=== PATIENT | female | born 1965 | race Caucasian/White ===

== ENCOUNTER → 2017-01-10 | Outpatient (REF) | payer MEDICARE, MEDICAID ==
[~2017-01-10] MED LIST: /ESOM40CA OR; ACET500C OR; AVALOX OR; AVELOX OR; B COCAP5 PO; DUONSOL IN; HYZAAR PO; LIPI10TA OR; MAGN500T2 PO; MULTIVIT PO; NABU750T OR; POTA75TA OR; TAMIFLU PO; TRAM50TA2 OR; TUMS500C OR; VENL75TA2 OR
== END ==
LOC: M LAB REF 13:28
PROVIDERS: ATTEND Obstetrics & Gynecology
DX: Z12.4 Encounter for screening for malignant neoplasm of cervix (principal)
CPT/HCPCS: 87624; G0123

== ENCOUNTER → 2017-01-23 | Outpatient (REF) | payer MEDICARE, MEDICAID ==
[2017-01-23 10:55] LABS: ALBUMIN 3.9 GM/DL (3.2-5.2); ALBUMIN/GLOBULIN RATIO 1.11 (1.00-1.93); ALKALINE PHOSPHATASE 86 U/L (45-117); ALT/SGPT 62 U/L (12-78); ANION GAP 6 MEQ/L (8-16); AST/SGOT 29 U/L (15-37); BILIRUBIN,TOTAL 0.7 MG/DL (0.2-1.0); BLOOD UREA NITROGEN 16 MG/DL (7-18); CALCIUM LEVEL 9.4 MG/DL (8.5-10.1); CARBON DIOXIDE LEVEL 31 MEQ/L (21-32); CHLORIDE LEVEL 104 MEQ/L (98-107); CHOLESTEROL LEVEL 218 MG/DL (<200); CREATININE FOR GFR 0.83 MG/DL (0.55-1.02); GLOMERULAR FILTRATION RATE > 60.0 (>51); GLUCOSE, FASTING 98 MG/DL (70-105); POTASSIUM SERUM 4.2 MEQ/L (3.5-5.1); SODIUM LEVEL 141 MEQ/L (136-145); TOTAL PROTEIN 7.4 GM/DL (6.4-8.2); TRIGLYCERIDES LEVEL 120 MG/DL (<150)
== END ==
LOC: M SFHCADAM 07:54
PROVIDERS: ATTEND Family Medicine
DX: I10 Essential (primary) hypertension (principal); E66.01 Morbid (severe) obesity due to excess calories; F32.2 Major depressive disorder, single episode, severe without psychotic features; F41.1 Generalized anxiety disorder; Z63.0 Problems in relationship with spouse or partner

== ENCOUNTER → 2017-01-30 | Outpatient (CLI) | payer MEDICARE, MEDICAID ==
--- NOTE | 2017-01-30 09:38 | REPMRS ---
Patient History The patient states she has not had a clinical breast exam in over a year. Patient is postmenopausal. No known family history of cancer. Digital Woman Screen Mammo: January 30, 2017 - Exam #: [id number] Bilateral CC and MLO view(s) were taken. Technologist: Bea Viveros, Technologist Prior study comparison: May 27, 2015, digital woman screen mammo performed at [facility]. March 15, 2011, digital bilateral screening mammo performed at [facility]. February 18, 2009, digital bilateral screening mammo performed at [facility]. FINDINGS: There are scattered fibroglandular densities. There has been no change in the appearance of the mammogram from the prior studies. There is a mild amount of scattered fibroglandular density which is fairly symmetric. There is no interval development of dominant mass, architectural distortion, or clustered microcalcification suggestive of malignancy. ASSESSMENT: BI-RADS/ACR category 1 mammogram. Negative. Recommendation Routine screening mammogram in 1 year (for women over age 40). This mammogram was interpreted with the aid of an FDA-approved computer-aided dectection system. Electronically Signed By: Pete Clancy MD 01/30/17 0938
== END ==
LOC: M WHC 09:03
PROVIDERS: ATTEND Obstetrics & Gynecology
DX: Z12.31 Encounter for screening mammogram for malignant neoplasm of breast (principal)

== ENCOUNTER → 2017-07-04 | Outpatient (CLI) | payer OTHER, MEDICARE, MEDICAID ==
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
== END ==
LOC: M ADAMS 15:16
PROVIDERS: ATTEND Family Medicine
DX: S13.4XXD Sprain of ligaments of cervical spine, subsequent encounter (principal); M51.36 Other intervertebral disc degeneration, lumbar region; X58.XXXD Exposure to other specified factors, subsequent encounter; Y92.9 Unspecified place or not applicable

== ENCOUNTER → 2017-09-02 | Outpatient (CLI) | payer OTHER, MEDICARE, MEDICAID ==
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
== END ==
LOC: M RAD 17:00
PROVIDERS: ATTEND Family Medicine
DX: M50.21 Other cervical disc displacement, high cervical region (principal); M50.221 Other cervical disc displacement at C4-C5 level; M50.222 Other cervical disc displacement at C5-C6 level; V89.2XXD Person injured in unspecified motor-vehicle accident, traffic, subsequent encounter

== ENCOUNTER → 2018-05-27 | Outpatient (CLI) | payer MEDICARE, MEDICAID ==
[2018-05-27 10:59] LABS: BASO % 0.4 % (0.0-1.0); EOS # 0.2 10^3/uL (0.0-0.50); EOS % 3.6 % (0.0-3.0); HEMATOCRIT 43.4 % (36.0-47.0); HEMOGLOBIN 14.8 g/dl (12.0-15.5); IMMATURE GRANULOCYTE % 0.3 % (0-3.0); LYMPH # 1.5 10^3/uL (1.5-4.5); LYMPH % 22.2 % (24.0-44.0); MEAN CORPUSCULAR HEMOGLOBIN 31.6 pg (27.0-33.0); MEAN CORPUSCULAR HGB CONC 34.1 g/dl (32.0-36.5); MEAN CORPUSCULAR VOLUME 92.7 fl (80.0-96.0); MONO # 0.4 10^3/uL (0.0-0.8); MONO % 6.1 % (0.0-5.0); NEUTROPHILS # 4.5 10^3/uL (1.8-7.7); NEUTROPHILS % 67.4 % (36.0-66.0); PLATELET COUNT, AUTOMATED 271 10^3/uL (150-450); RED BLOOD COUNT 4.68 10^6/uL (4.00-5.40); RED CELL DISTRIBUTION WIDTH 13.1 % (11.5-14.5); WHITE BLOOD COUNT 6.7 10^3/uL (4.0-10.0)
[2018-05-27 12:29] LABS: ALBUMIN 3.8 GM/DL (3.2-5.2); ALKALINE PHOSPHATASE 86 U/L (45-117); ALT/SGPT 46 U/L (12-78); ANION GAP 9 MEQ/L (8-16); AST/SGOT 27 U/L (7-37); BILIRUBIN,TOTAL 0.7 MG/DL (0.2-1.0); BLOOD UREA NITROGEN 12 MG/DL (7-18); CALCIUM LEVEL 9.2 MG/DL (8.5-10.1); CARBON DIOXIDE LEVEL 27 MEQ/L (21-32); CHLORIDE LEVEL 107 MEQ/L (98-107); CHOLESTEROL LEVEL 231 MG/DL (<200); CHOLESTEROL RISK RATIO 5.021 (<5); CREATININE FOR GFR 0.87 MG/DL (0.55-1.30); GLOMERULAR FILTRATION RATE > 60.0 (>51); GLUCOSE, FASTING 92 MG/DL (70-100); HDL CHOLESTEROL 46 MG/DL (>40); LDL CHOLESTEROL 152 MG/DL (<100); NON-HDL-C 185 MG/DL; POTASSIUM SERUM 4.3 MEQ/L (3.5-5.1); SODIUM LEVEL 143 MEQ/L (136-145); THYROID STIMULATING HORMONE 0.633 uIU/ML (0.358-3.740); TOTAL PROTEIN 7.3 GM/DL (6.4-8.2); TRIGLYCERIDES LEVEL 164 MG/DL (<150)
[2018-05-27 15:56] LABS: ALBUMIN/GLOBULIN RATIO 1.09 (1.00-1.93)
== END ==
LOC: M WUC 09:01
DX: E66.01 Morbid (severe) obesity due to excess calories (principal); Z68.35 Body mass index [BMI] 35.0-35.9, adult; E03.9 Hypothyroidism, unspecified
CPT/HCPCS: 84443

== ENCOUNTER → 2018-11-26 | Outpatient (REF) | payer MEDICARE, MEDICAID ==
[2018-11-26 13:50] LABS: CHOLESTEROL RISK RATIO 3.641 (<5)
== END ==
LOC: M SFHCADAM 09:38
PROVIDERS: ATTEND Family Medicine
DX: E78.2 Mixed hyperlipidemia (principal)

== ENCOUNTER → 2019-03-17 | Outpatient (CLI) | payer MEDICARE ==
[~2019-03-17] MED LIST changes: -/ESOM40CA OR; +NEXI1CAP3 OR
--- NOTE | 2019-03-17 16:37 | REPMRS ---
Patient History The patient states she has not had a clinical breast exam in over a year. No known family history of cancer. 3D TOMOSYNTHESIS WAS PERFORMED. The [facility] lifetime risk for breast cancer is 7.5%. Digital Woman Screen Mammo: March 17, 2019 - Exam #: [id number] Bilateral CC and MLO view(s) were taken. Technologist: Sridevi Correa Technologist Prior study comparison: January 30, 2017, digital woman screen mammo performed at [facility]. May 27, 2015, digital woman screen mammo performed at [facility]. FINDINGS: There are scattered fibroglandular densities. There has been no change in the appearance of the mammogram from the prior studies. There is a mild amount of residual fibroglandular tissue which is fairly symmetric. There is no interval development of dominant mass, architectural distortion, or clustered microcalcification suggestive of malignancy. Assessment: BI-RADS/ACR category 1 mammogram. Negative Mammogram. Recommendation Routine screening mammogram in 1 year (for women over age 40). This mammogram was interpreted with the aid of an FDA-approved computer-aided dectection system. Electronically Signed By: Joseph Alba MD 03/17/19 7132
== END ==
LOC: M WHC 11:20
PROVIDERS: ATTEND Obstetrics & Gynecology
DX: Z12.31 Encounter for screening mammogram for malignant neoplasm of breast (principal)

== ENCOUNTER → 2019-08-20 | Outpatient (CLI) | payer MEDICARE ==
--- NOTE | 2019-08-20 12:52 | REP ---
Clinical: Pain. Technique: AP, lateral, bilateral oblique views of the left ankle. Findings: Considerable anterolateral soft tissue swelling is appreciated. No obvious acute fracture or dislocation. Ankle mortise intact. Lateral view demonstrates moderate calcaneal heal spur. Impression: Anterolateral swelling. No acute fracture. Electronically Signed by Thierry French MD 08/20/2019 12:44 P
== END ==
LOC: M WUC 12:25
PROVIDERS: ATTEND Physician Assistant
DX: M77.32 Calcaneal spur, left foot (principal); R60.0 Localized edema

== ENCOUNTER → 2019-11-04 | Outpatient (REF) | payer MEDICARE ==
[2019-11-04 13:09] LABS: BASO % 0.5 % (0.0-1.0); EOS # 0.2 10^3/uL (0.0-0.5); EOS % 2.8 % (0.0-3.0); HEMATOCRIT 45.6 % (36.0-47.0); HEMOGLOBIN 15.5 g/dl (12.0-15.5); LYMPH # 1.3 10^3/uL (1.5-5.0); MEAN CORPUSCULAR HEMOGLOBIN 31.8 pg (27.0-33.0); MEAN CORPUSCULAR VOLUME 93.4 fl (80.0-96.0); MONO # 0.3 10^3/uL (0.0-0.8); MONO % 5.8 % (0.0-5.0); NEUTROPHILS # 3.9 10^3/uL (1.5-8.5); NEUTROPHILS % 68.7 % (36.0-66.0); PLATELET COUNT, AUTOMATED 256 10^3/uL (150-450); RED BLOOD COUNT 4.88 10^6/uL (4.00-5.40); WHITE BLOOD COUNT 5.7 10^3/uL (4.0-10.0)
[2019-11-04 13:31] LABS: ALT/SGPT 45 U/L (12-78); BILIRUBIN,TOTAL 0.7 MG/DL (0.2-1.0); BLOOD UREA NITROGEN 16 MG/DL (7-18); CALCIUM LEVEL 9.3 MG/DL (8.5-10.1); CARBON DIOXIDE LEVEL 27 MEQ/L (21-32); CHLORIDE LEVEL 105 MEQ/L (98-107); CHOLESTEROL LEVEL 190 MG/DL (<200); CHOLESTEROL RISK RATIO 3.877 (<5); CREATININE FOR GFR 0.98 MG/DL (0.55-1.30); GLOMERULAR FILTRATION RATE > 60.0 (>51); GLUCOSE, FASTING 111 MG/DL (70-100); HDL CHOLESTEROL 49 MG/DL (>40); LDL CHOLESTEROL 112 MG/DL (<100); NON-HDL-C 141 MG/DL; POTASSIUM SERUM 3.8 MEQ/L (3.5-5.1); SODIUM LEVEL 138 MEQ/L (136-145); THYROID STIMULATING HORMONE 0.316 uIU/ML (0.358-3.740); TOTAL PROTEIN 7.4 GM/DL (6.4-8.2); TRIGLYCERIDES LEVEL 147 MG/DL (<150)
== END ==
LOC: M SFHCADAM 08:04
PROVIDERS: ATTEND Family Medicine
DX: Z00.00 Encounter for general adult medical examination without abnormal findings (principal); E03.9 Hypothyroidism, unspecified

== ENCOUNTER → 2020-02-01 | Outpatient (REF) | payer MEDICARE ==
[2020-02-01 12:58] LABS: FREE T4 1.46 NG/DL (0.76-1.46); THYROID STIMULATING HORMONE 0.663 uIU/ML (0.358-3.740)
== END ==
LOC: M SFHCADAM 08:59
PROVIDERS: ATTEND Family Medicine
DX: E03.9 Hypothyroidism, unspecified (principal)
CPT/HCPCS: 84439; 84443; G0463

== ENCOUNTER → 2020-05-24 | Outpatient (REF) | payer MEDICARE | LOC: M SFHCWAGY 13:45 | PROVIDERS: ATTEND Obstetrics & Gynecology | DX: Z12.4 Encounter for screening for malignant neoplasm of cervix (principal); N95.8 Other specified menopausal and perimenopausal disorders | CPT/HCPCS: 87624; G0101; G0123 ==

== ENCOUNTER → 2020-06-21 | Outpatient (CLI) | payer MEDICARE ==
--- NOTE | 2020-06-28 09:32 | REP ---
BILATERAL SCREENING MAMMOGRAM WITH 3D TOMOSYNTHESIS HISTORY: No family history of breast cancer. [facility] lifetime risk of breast cancer 7.3%. COMPARISON MAMMOGRAM: 03/17/2019 as well as other prior exams. HISTORY: Bilateral mammography performed in the MLO and CC projections with 3D tomosynthesis. There is mild scattered fibroglandular tissue bilaterally. Volpara breast density is A. There is a new somewhat tubular band of density in the region of 6 oclock posteriorly in the right breast. This has a length of about 1.9 cm and a width of about 6 mm. This is not seen on prior studies. Otherwise no new mass or clustered microcalcifications are seen bilaterally. IMPRESSION: ACR 0 incomplete. New somewhat tubular density in the 6 oclock region of the right breast posteriorly. Length is approximately 19 mm and width approximately 6 mm. Recommend spot compression views and ultrasound to further evaluate. This mammogram was interpreted with the aid of an FDA approved computer aided detection system. The patient states her last clinical breast exam was May 2020. Send letter 0. MTDD
== END ==
LOC: M WHC 10:19
PROVIDERS: ATTEND Obstetrics & Gynecology
DX: R92.8 Other abnormal and inconclusive findings on diagnostic imaging of breast (principal); N63.13 Unspecified lump in the right breast, lower outer quadrant

== ENCOUNTER → 2020-07-14 | Outpatient (CLI) | payer MEDICARE ==
--- NOTE | 2020-07-14 14:24 | REP ---
INDICATION: ADDITIONAL VIEWS RT BREAST. COMPARISON: Mammogram 06/21/2020. TECHNIQUE: Spot compression views right breast performed posteriorly at 6 o'clock. Focused right breast ultrasound also performed at that location. FINDINGS: Spot compression views confirm the presence of a mildly irregular tubular oval density of the 6 o'clock position of the right breast posteriorly. It measures approximately 19 x 6 mm. It is not seen on the studies of 2018 or earlier. Real-time sonographic evaluation of right breast performed. Hypoechoic irregular tubular structure measures 15 x 6 x 9 mm. There are internal echoes. This does not appear significantly hyperemic with Doppler color evaluation. IMPRESSION: BIRADS/ACR category 4 suspicious. New oval tubular density 6 o'clock right breast seen both mammographically and sonographically. This does not represent a simple cyst or fluid-filled structure. Recommend ultrasound-guided biopsy. This mammogram was interpreted with the aid of an FDA-approved computer-aided detection system. The patient letter being requested is M4. RECOMMENDATION: Recommend ultrasound-guided biopsy with postprocedure mammogram. <Electronically signed by Joseph Alba > 07/14/20 [id number]
== END ==
LOC: M WHC 12:26
PROVIDERS: ATTEND Obstetrics & Gynecology
DX: R92.8 Other abnormal and inconclusive findings on diagnostic imaging of breast (principal)

== ENCOUNTER → 2020-09-20 | Outpatient (CLI) | payer MEDICARE ==
[2020-09-20 12:29] VITALS: BP 138/84
--- NOTE | 2020-09-20 13:21 | REP ---
INDICATION: R92.8 ABN RT BREAST MAMMO,US GUIDED BIOPST,POST BIOPSY. COMPARISON: 06/21/2020 and 07/14/2020. TECHNIQUE: ML and CC views right breast performed following ultrasound-guided biopsy of a nodule in the posterior right breast. FINDINGS: A biopsy clip is seen within the oval nodule identified on the prior mammograms indicating successful ultrasound-guided biopsy. IMPRESSION: Successful ultrasound-guided biopsy of nodule in the posterior aspect of the right breast, biopsy clip is noted within the nodule. RECOMMENDATION: Clinical follow-up. <Electronically signed by Joseph Alba > 09/20/20 0896
--- NOTE | 2020-09-20 16:06 | REP ---
INDICATION: R92.8 ABN RT BREAST MAMMO,US GUIDED BIOPSY. COMPARISON: None. TECHNIQUE: The procedure was performed under the direct supervision of Dr. Alba. The risks and benefits of the procedure were explained to the patient and informed consent was obtained. The patient has a history of a 15 by 6 x 9 mm tubular structure in the 6 o'clock position of the right breast seen on a previous ultrasound dated 07/14/2020. The right breast nodule was localized using ultrasound guidance. The skin was prepped and draped in a sterile fashion. 1% Xylocaine was used as a local anesthetic. Using ultrasound guidance a 14 gauge coaxial needle was inserted and6 core biopsy samples were obtained. A marker clip was placed at the biopsy site The patient tolerated the procedure well and there were no immediate complications. After the appropriate amount of monitored convalescence, the patient was discharged from the department. FINDINGS: None IMPRESSION: Ultrasound-guided right breast biopsy with marker clip placement. <Electronically signed by Hermann Calloway > 09/20/20 1516 <Electronically signed by Joseph Alba > 09/20/20 1606
== END ==
LOC: M WHCPRO 10:24
PROVIDERS: ATTEND Surgery
DX: C50.911 Malignant neoplasm of unspecified site of right female breast (principal)

== ENCOUNTER → 2020-09-26 | Outpatient (REF) | payer MEDICARE ==
[2020-09-26 15:16] LABS: CALCIUM LEVEL 9.7 MG/DL (8.5-10.1); CREATININE FOR GFR 1.03 MG/DL (0.55-1.30); GLOMERULAR FILTRATION RATE 58.8 (>51); POTASSIUM SERUM 3.8 MEQ/L (3.5-5.1)
== END ==
LOC: M PLALAB 12:28
PROVIDERS: ATTEND Surgery
DX: Z01.812 Encounter for preprocedural laboratory examination (principal); C50.911 Malignant neoplasm of unspecified site of right female breast; Z13.9 Encounter for screening, unspecified

== ENCOUNTER → 2020-09-26 | Outpatient (CLI) | payer MEDICARE | LOC: M PLALAB 12:07 | PROVIDERS: ATTEND Surgery | DX: Z13.9 Encounter for screening, unspecified (principal) ==

== ENCOUNTER → 2020-10-04 | Outpatient (CLI) | payer MEDICARE ==
[~2020-10-04] MED LIST changes: +CALCCAP4 PO; +LEVO112T2 PO; +LOSA100T50 PO; +META28.32 PO; +MULT-40 PO; +NABU-53 PO; +PROHANCE 279.3MG/ML 15ML VIAL As Ordered ONE; +PROHANCE 279.3MG/ML 5ML VIAL As Ordered ONE; +SIMV20TA22 PO; +TOLT4CAP3 PO; +TUMS1000 PO; +[UNRECOGNIZED DRUG - CODE] PO
--- NOTE | 2020-10-04 10:23 | REP ---
INDICATION: INVASIVE DUCTAL CA; RT BREAST. , COMPARISON: Mammograms 06/21/2020 and 07/14/2020. TECHNIQUE: Three [place]ala MRI imaging was performed with a dedicated breast coil. Axial, coronal, and sagittal T1 and T2 weighted scans were obtained with and without fat saturation in the usual fashion. The study includes dynamically acquired post gadolinium-enhanced imaging with image subtraction. Maximum intensity projection and multi planar reformation imaging is included as well. This study is interpreted with the aid of [employer], an FDA approved computer aided detection (CAD) software program, on a dedicated breast MRI workstation. The gadolinium enhancement dose is 10 mL of intravenous ProHance. FINDINGS: There is mild diffuse fibroglandular tissue present. Multiple tiny subcentimeter cystic structures are seen bilaterally. No evidence of axillary adenopathy. There is very mild background parenchymal enhancement bilaterally. Oval enhancing nodule which was recently biopsied is identified in the posterior inferior right breast slightly laterally, biopsy proven to represent invasive ductal carcinoma. This demonstrates type 3 washout enhancement. It measures approximately 1.0 x 2.5 x 1.0 cm. It is approximately 11 cm from the nipple. In the left breast slightly above the plane of the nipple and slightly laterally, posteriorly 12 cm from the nipple, there is an enhancing oval nodule which measures approximately 6 x 8 x 4 mm. This demonstrates mixed type 3 washout and type 2 plateau enhancement. This appears somewhat suspicious. There is a 7 mm cyst incidentally noted in the right lobe of the liver. IMPRESSION: BI-RADS category 6, known invasive ductal carcinoma right breast. Oval enhancing nodule is identified as discussed in detail above, which was recently biopsied in the posteroinferior right breast slightly laterally. In left breast slightly above plane of nipple and slightly laterally, posteriorly 12 cm from nipple, there is an enhancing oval nodule 6 x 8 x 4 mm which appears somewhat suspicious. Recommend second-look ultrasound left breast in order to identify for biopsy. <Electronically signed by Joseph Alba > 10/04/20 7097
== END ==
LOC: M RAD 07:48
PROVIDERS: ATTEND Surgery
DX: C50.911 Malignant neoplasm of unspecified site of right female breast (principal)
CPT/HCPCS: A9576; C8908

== ENCOUNTER → 2020-10-11 | Outpatient (CLI) | payer MEDICARE ==
[~2020-10-11] MED LIST changes: -PROHANCE 279.3MG/ML 15ML VIAL As Ordered ONE; -PROHANCE 279.3MG/ML 5ML VIAL As Ordered ONE
--- NOTE | 2020-10-11 16:32 | REP ---
INDICATION: LT BREAST ABN IMAGING MRI BREAST. Patient has a biopsy-proven invasive ductal carcinoma in the right breast. Bilateral breast MRI study was performed and a 8 mm oval-shaped area of contrast enhancement was observed in the 12 o'clock position posterior 3rd of the left breast. Second-look ultrasound was recommended. COMPARISON: Comparison MRI study 04 October 2020. Comparison mammography June 21, 2020.. TECHNIQUE: Targeted left breast sonography is performed concentrating on the 12 o'clock position. The left breast was scanned from proximally 10 o'clock to 4 o'clock throughout the superior and lateral aspect. Scanning was performed at real-time in my presence. FINDINGS: Slightly heterogeneous fibroglandular background echotexture is seen. No suspicious sonographic abnormality was observed in the superior aspect of the left breast. Somewhat laterally at approximately 3 o'clock however, there is a lesion seen with a ill-defined hyperechoic margin and a hypoechoic center. This measures 7 x 5 x 4 mm and is 10 cm from the nipple. This is similar to the MR target in distance from the nipple, size and shape however it is at 3 o'clock where is the expected MR abnormality is at 12 o'clock. It does not seem likely that they correspond. There is no suspicious abnormality seen on MR imaging in left breast at 3 o'clock. IMPRESSION: There is an oval-shaped 7 mm lesion in the 3 o'clock position of the left breast which is not a simple cyst. Its ill-defined margins are somewhat suspicious. It probably does not correspond to the MR target. Consideration should be given to ultrasound-guided needle biopsy of the lesion at 3 o'clock with marker clip placement. This can be followed by MR guided needle biopsy of the 12 o'clock target seen on recent MR. Clip placement and post clip placement left breast mammography would be warranted as well. BI-RADS category 4 suspicious findings. <Electronically signed by Pete Clancy > 10/11/20 [id number]
== END ==
LOC: M RAD 14:53
PROVIDERS: ATTEND Surgery
DX: R92.8 Other abnormal and inconclusive findings on diagnostic imaging of breast (principal); N63.21 Unspecified lump in the left breast, upper outer quadrant

== ENCOUNTER → 2020-10-13 | Outpatient (CLI) | payer MEDICARE ==
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
== END ==
LOC: M ADAMS 12:43
PROVIDERS: ATTEND Family Medicine
DX: R42 Dizziness and giddiness (principal); Z79.899 Other long term (current) drug therapy
CPT/HCPCS: 71046; 80053; 84439; 84443; 85025; G0463

== ENCOUNTER → 2020-10-13 | Outpatient (REF) | payer MEDICARE ==
[2020-10-13 17:26] LABS: BASO % 0.4 % (0.0-1.0); EOS # 0.3 10^3/uL (0.0-0.5); EOS % 3.4 % (0.0-3.0); HEMATOCRIT 43.7 % (36.0-47.0); HEMOGLOBIN 14.6 g/dl (12.0-15.5); LYMPH # 1.5 10^3/uL (1.5-5.0); LYMPH % 19.3 % (24.0-44.0); MEAN CORPUSCULAR HEMOGLOBIN 31.1 pg (27.0-33.0); MEAN CORPUSCULAR HGB CONC 33.4 g/dl (32.0-36.5); MEAN CORPUSCULAR VOLUME 93.2 fl (80.0-96.0); MONO # 0.5 10^3/uL (0.0-0.8); MONO % 6.2 % (0.0-5.0); NEUTROPHILS # 5.5 10^3/uL (1.5-8.5); NEUTROPHILS % 70.3 % (36.0-66.0); PLATELET COUNT, AUTOMATED 277 10^3/uL (150-450); RED BLOOD COUNT 4.69 10^6/uL (4.00-5.40); WHITE BLOOD COUNT 7.9 10^3/uL (4.0-10.0)
[2020-10-13 17:43] LABS: ALBUMIN 3.9 GM/DL (3.2-5.2); ALT/SGPT 48 U/L (12-78); BILIRUBIN,TOTAL 0.4 MG/DL (0.2-1.0); BLOOD UREA NITROGEN 8 MG/DL (7-18); CALCIUM LEVEL 9.7 MG/DL (8.5-10.1); CARBON DIOXIDE LEVEL 31 MEQ/L (21-32); CHLORIDE LEVEL 104 MEQ/L (98-107); CREATININE FOR GFR 0.96 MG/DL (0.55-1.30); FREE T4 1.26 NG/DL (0.76-1.46); GLOMERULAR FILTRATION RATE > 60.0 (>51); GLUCOSE, FASTING 96 MG/DL (70-100); POTASSIUM SERUM 4.2 MEQ/L (3.5-5.1); SODIUM LEVEL 140 MEQ/L (136-145); TOTAL PROTEIN 7.6 GM/DL (6.4-8.2)
== END ==
LOC: M SFHCADAM 12:33
PROVIDERS: ATTEND Family Medicine
DX: R42 Dizziness and giddiness (principal); Z79.899 Other long term (current) drug therapy

== ENCOUNTER → 2020-10-21 | Outpatient (CLI) | payer MEDICARE ==
--- NOTE | 2020-10-21 12:27 | REP ---
INDICATION: R92.8 ABN LT BREAST US,POST US GUIDED BIOPSY. COMPARISON: Comparison is made with sonography from 11 October 2020 and ultrasound-guided upset see imaging from 21 October 2020. TECHNIQUE: Craniocaudal and true mediolateral views of the left breast were obtained post clip placement. This mammogram was interpreted with the aid of an FDA-approved computer-aided detection system. FINDINGS: There is a marker clip superficially placed in the lateral aspect of the left breast at approximately 3 o'clock position. No hematoma is seen. Some post biopsy air is seen. No other mammographic findings. Breast parenchyma is is predominantly fat replaced. . : IMPRESSION: Post biopsy images demonstrate a marker clip in the superficial left lateral breast at approximately 3 o'clock position. RECOMMENDATION: Patient is being scheduled for MR guided needle biopsy in the 12 o'clock region of the left breast.. <Electronically signed by Pete Clancy > 10/21/20 4729
== END ==
LOC: M WHC 11:06
PROVIDERS: ATTEND Surgery
DX: R92.8 Other abnormal and inconclusive findings on diagnostic imaging of breast (principal)

== ENCOUNTER → 2020-10-21 | Outpatient (CLI) | payer MEDICARE ==
[~2020-10-21] MED LIST changes: +LIDOCAINE 1% MDV 20ML VIAL As Ordered ONE
[2020-10-21 10:37] VITALS: BP 134/78
--- NOTE | 2020-10-21 17:16 | REP ---
INDICATION: LESION @ 3:00 LT BREAST, SECOND LOOK U/S W/ BX. COMPARISON: None. TECHNIQUE: The procedure was performed under the direct supervision of Dr. Clancy. A second-look ultrasound, performed on 10/11/2020, demonstrates an oval-shaped 7 mm lesion in the 3 o'clock position of the left breast. The risks and benefits of the procedure were explained to the patient and informed consent was obtained. The left breast nodule was localized using ultrasound guidance. The skin was prepped and draped in a sterile fashion. 1% Xylocaine was used as a local anesthetic. Using ultrasound guidance a 14 gauge coaxial needle was inserted and6 core biopsy samples were obtained. A marker clip (HydroMARK shape 3) was placed at the biopsy site The patient tolerated the procedure well and there were no immediate complications. After the appropriate amount of monitored convalescence, the patient was discharged from the department. FINDINGS: None IMPRESSION: Ultrasound-guided left breast biopsy with marker placement. (HydroMARK shape 3) <Electronically signed by Hermann Calloway > 10/21/20 4890 <Electronically signed by Pete Clancy > 10/21/20 [id number]
== END ==
LOC: M RAD 09:28
PROVIDERS: ATTEND Surgery
DX: N63.25 Unspecified lump in the left breast, overlapping quadrants (principal); D24.2 Benign neoplasm of left breast

== ENCOUNTER → 2020-11-10 | Outpatient (CLI) | payer MEDICARE ==
[~2020-11-10] MED LIST changes: -LIDOCAINE 1% MDV 20ML VIAL As Ordered ONE
--- NOTE | 2020-11-10 15:08 | REP ---
INDICATION: POST MRI BX UNILATERAL MAMMO FOR CLIP PLACEMENT. COMPARISON: Comparison mammography 21 October 2020. TECHNIQUE: Craniocaudal, mediolateral oblique, and mediolateral views of the left breast are obtained. This mammogram was interpreted with the aid of an FDA-approved computer-aided detection system. FINDINGS: Mild scattered fibroglandular elements are seen. A marker clip placed at the time of the recent ultrasound-guided biopsy superficially in the left breast laterally is again seen. Today's needle biopsy marker clip is located 5 cm anterior to this also superficially positioned in the upper outer quadrant. This is approximately 6 cm from the biopsy cavity from today's MR guided biopsy. A lateral medial needle path was utilized for the biopsy and the marker clip appears to have disc lodged partially, possibly with at the time of needle withdrawal. In any event today's needle biopsy marker clip is not in good position. There is a small amount of soft tissue disturbance post biopsy in the upper outer quadrant posterior 3rd. . Scratch: At IMPRESSION: Marker clip is not in good position, partially dislodged superficially away from the biopsy cavity. RECOMMENDATION: If excisional biopsy is warranted based on pathology results, the biopsy marker clip cannot be used for localization.. <Electronically signed by Pete Clancy > 11/10/20 4400
== END ==
LOC: M WHC 14:17
PROVIDERS: ATTEND Surgery
DX: R92.8 Other abnormal and inconclusive findings on diagnostic imaging of breast (principal); Z97.8 Presence of other specified devices
CPT/HCPCS: 77021; 77065; 88305; A9576

== ENCOUNTER → 2020-11-10 | Outpatient (CLI) | payer MEDICARE ==
[~2020-11-10] MED LIST changes: +AMLO1TAB24 PO; +BD P0.9I2 IV; +CEPH500C PO; +CYCL1CAP2 PO; +DOXO2INJ IV; +HEPA1INJ8 IV; +LIDO2.5C15 TOP; +LIDOCAINE 1% MDV 20ML VIAL As Ordered ONE; +ONDA8TAB10 PO; +PEG6SYR SC; +PROB250C PO; +PROC10TA4 PO; +PROHANCE 279.3MG/ML 15ML VIAL As Ordered ONE; +PROHANCE 279.3MG/ML 5ML VIAL As Ordered ONE; +ROXI1TAB2 PO; +SODIUM BICARBONATE 8.4% INJ 50MEQ 50 ML VIAL As Ordered ONE
[2020-11-10 13:45] VITALS: BP 130/74
--- NOTE | 2020-11-10 18:18 | REP ---
INDICATION: LT BREAST LESION @ 12 O' CLOCK. COMPARISON: None. TECHNIQUE: The procedure was performed by Poornima Lr [facility], under the direct supervision of Dr. Clancy. The risks and benefits of the procedure were explained to the patient and an informed consent was obtained both verbally and written. Directly prior to the start of the procedure a formal time-out was completed in the procedure room. In anticipation of doing a lateral to medial needle approach, the lateral aspect of the patient's left breast skin was prepped with antiseptic. The patient was placed prone on the MRI imaging table in the breast imaging coil and the left breast was compressed mildly. Twenty mL of intravenous gadolinium was administered. Fiducial marker localization, pre and two dynamic postcontrast T1 weighted fat saturation sequences of the left breast were acquired. The [employer] system was then deployed. The lesion was targeted on initial images, and the lateral aspect of the skin was marked at the identified triangulated skin entry site. Patient was having an extremely difficult time holding still a needed to take a break. The patient was removed from the exam table and given a chance to get a drink of water and parliamentary archivist self and was placed back on the exam table and the procedure was started again. No gadolinium needed to be readministration, as the target was seen from the previous injection. The lateral skin at the entry site was prepped again aseptically. Eight mL of buffered lidocaine was administered into the skin and the breast parenchyma along the anticipated needle path. A skin ranjith was then made and in 8 gauge mammotome suction assisted needle biopsy device was passed into the left breast tissue without significant technical difficulty. Five core breast biopsies were retrieved and were submitted in formalin to pathology. A marker clip was deployed. FINDINGS: Post biopsy imaging showed good clip placement and targeting. The patient tolerated the procedure well, with no immediate complications. The patient was then discharged to go and get their postprocedural two view mammography for marker clip placement. IMPRESSION: MRI guided left breast biopsy <Electronically signed by Poornima Lr > 11/10/20 1449 <Electronically signed by Pete Clancy > 11/10/20 [id number]
== END ==
LOC: M IRPRO 09:47
PROVIDERS: ATTEND Surgery
DX: R92.8 Other abnormal and inconclusive findings on diagnostic imaging of breast (principal)

== ENCOUNTER → 2020-11-16 | Outpatient (CLI) | payer MEDICARE ==
[~2020-11-16] MED LIST changes: -AMLO1TAB24 PO; -BD P0.9I2 IV; -CEPH500C PO; -CYCL1CAP2 PO; -DOXO2INJ IV; -HEPA1INJ8 IV; -LIDO2.5C15 TOP; -LIDOCAINE 1% MDV 20ML VIAL As Ordered ONE; -ONDA8TAB10 PO; -PEG6SYR SC; -PROB250C PO; -PROC10TA4 PO; -PROHANCE 279.3MG/ML 15ML VIAL As Ordered ONE; -PROHANCE 279.3MG/ML 5ML VIAL As Ordered ONE; -ROXI1TAB2 PO; -SODIUM BICARBONATE 8.4% INJ 50MEQ 50 ML VIAL As Ordered ONE
--- NOTE | 2020-11-16 11:58 | REP ---
INDICATION: PRE OP EVAL COMPARISON: 10/13/2020 TECHNIQUE: PA and lateral. FINDINGS: The mediastinum and cardiac silhouette are normal. The lung ruggiero demonstrate stable chronic appearing changes without acute consolidation, effusion, or pneumothorax. The skeletal structures are intact and normal. IMPRESSION: No acute cardiopulmonary process. <Electronically signed by Thierry French > 11/16/20 115
== END ==
LOC: M ADAMS 09:48
PROVIDERS: ATTEND Family Medicine
DX: Z01.818 Encounter for other preprocedural examination (principal); C50.911 Malignant neoplasm of unspecified site of right female breast

== ENCOUNTER → 2020-11-16 | Outpatient (REF) | payer MEDICARE ==
[~2020-11-16] MED LIST changes: +BD P0.9I2 IV; +CYCL1CAP2 PO; +DOXO2INJ IV; +HEPA1INJ8 IV; +ONDA8TAB10 PO; +PEG6SYR SC; +PROC10TA4 PO; +ROXI1TAB2 PO
[2020-11-16 13:40] LABS: BASO % 0.5 % (0.0-1.0); EOS # 0.2 10^3/uL (0.0-0.5); EOS % 3.1 % (0.0-3.0); HEMATOCRIT 43.9 % (36.0-47.0); HEMOGLOBIN 14.6 g/dl (12.0-15.5); LYMPH # 1.8 10^3/uL (1.5-5.0); LYMPH % 23.5 % (24.0-44.0); MEAN CORPUSCULAR HEMOGLOBIN 31.7 pg (27.0-33.0); MEAN CORPUSCULAR HGB CONC 33.3 g/dl (32.0-36.5); MEAN CORPUSCULAR VOLUME 95.2 fl (80.0-96.0); MONO # 0.6 10^3/uL (0.0-0.8); MONO % 7.8 % (2.0-8.0); NEUTROPHILS % 64.7 % (36.0-66.0); PLATELET COUNT, AUTOMATED 265 10^3/uL (150-450); RED BLOOD COUNT 4.61 10^6/uL (4.00-5.40); WHITE BLOOD COUNT 7.7 10^3/uL (4.0-10.0)
[2020-11-16 13:44] LABS: ALBUMIN 3.8 GM/DL (3.2-5.2); BILIRUBIN,TOTAL 0.6 MG/DL (0.2-1.0); CALCIUM LEVEL 9.8 MG/DL (8.5-10.1); CREATININE FOR GFR 1.02 MG/DL (0.55-1.30); GLOMERULAR FILTRATION RATE 59.5 (>51); POTASSIUM SERUM 4.1 MEQ/L (3.5-5.1); TOTAL PROTEIN 7.3 GM/DL (6.4-8.2)
== END ==
LOC: M SFHCADAM 09:46
PROVIDERS: ATTEND Family Medicine
DX: Z01.818 Encounter for other preprocedural examination (principal); C50.911 Malignant neoplasm of unspecified site of right female breast

== ENCOUNTER → 2020-11-17 | Outpatient (CLI) | payer MEDICARE ==
[~2020-11-17] MED LIST changes: -BD P0.9I2 IV; -CYCL1CAP2 PO; -DOXO2INJ IV; -HEPA1INJ8 IV; -ONDA8TAB10 PO; -PEG6SYR SC; -PROC10TA4 PO; -ROXI1TAB2 PO
== END ==
LOC: M LABSMTC 11:55
PROVIDERS: ATTEND Anesthesiology
DX: Z01.812 Encounter for preprocedural laboratory examination (principal); Z20.822 Contact with and (suspected) exposure to COVID-19

== ENCOUNTER 2020-11-22 06:26 | Day surgery (SDC) | payer MEDICARE ==
[~2020-11-22] VITALS: Ht 172.7 cm; Wt 115.6 kg
[~2020-11-22 06:26] MED LIST changes: +HEPARIN SOD (PORCINE) 5000UNITS/ML 1ML VIAL/SYRINGE SQ ONE; +LR 1,000 ML IV ONE; +ceFAZolin SOD 2 GM in IV 1 EA IV ONE
[2020-11-22] MEDS ORDERED: BUPIVACAINE HCL 0.25% 30ML VIAL As Ordered ONE (07:13)
[2020-11-22] MEDS ORDERED: LIDOCAINE 1% MDV 20ML VIAL As Ordered ONE (07:13)
[2020-11-22] MEDS ORDERED: METHYLENE BLUE 0.5% (5MG/ML) 10 ML AMP (PROVAYBLUE) As Ordered ONE (07:14)
[2020-11-22] MEDS ORDERED: KETOROLAC 60MG 2ML VIAL As Ordered ONE (07:41)
[2020-11-22] MEDS ORDERED: ONDANSETRON 4MG/2ML VIAL As Ordered ONE (07:41)
[2020-11-22] MEDS ORDERED: ACETAMINOPHEN 1000MG 100ML IV BTL (OFIRMEV) (J0131 PER 10MG) As Ordered ONE (07:41)
[2020-11-22] MEDS ORDERED: fentaNYL 100 MCG/2 ML INJECTION (J3010) As Ordered ONE (07:41)
[2020-11-22] MEDS ORDERED: dexameTHASONE 4 MG/ML 1ML VIAL (J1100 PER 1MG) As Ordered ONE (07:41)
[2020-11-22] MEDS ORDERED: MIDAZOLAM INJ 2MG/2ML VIAL (J2250 PER 1MG) As Ordered ONE (07:41)
[2020-11-22] MEDS ORDERED: propofoL 200 MG/20 ML VIAL As Ordered ONE (07:41)
[2020-11-22] MEDS ORDERED: LIDOCAINE 2% INJ 100 MG/5 ML SYRINGE As Ordered ONE (07:41)
[2020-11-22] MEDS ORDERED: LIDOCAINE 2% 100MG/5ML SDV (FOR ANES.) As Ordered ONE (07:43)
[2020-11-22] MEDS ORDERED: PHENYLEPHRINE 10MG/ML 1ML VIAL (J2370 PER 1) As Ordered ONE (10:43)
[2020-11-22] MEDS ORDERED: LACRILUBE (AKWA TEARS) OPHTH OINT 3.5 GM As Ordered ONE (10:43)
--- NOTE | 2020-11-22 11:25 | REP ---
INDICATION: INTRAOP WIRE PLACEMENT LUMPECTOMY, BIOPSY. COMPARISON: None. TECHNIQUE: Sonographic guidance. FINDINGS: Ultrasound guidance is provided to Dr. Chu who performed Catracho's wire needle localization procedure under ultrasound guidance in the OR. Right breast. IMPRESSION: Procedural imaging. <Electronically signed by Pete Clancy > 11/22/20 1123
[2020-11-22] MEDS ORDERED: HYDROmorphone HCL 2 MG/ML 1ML VIAL (J1170) As Ordered ONE (11:43)
--- NOTE | 2020-11-22 12:06 | REP ---
INDICATION: RIGHT BREAST LUMPECTOMY W/INTRAOP. COMPARISON: None. TECHNIQUE/RADIOTRACER AND DOSE: This procedure was performed by Poornima Lr [facility], under the direct supervision of Dr. Alba. Images were reviewed with Dr. Alba prior to dictation. The risks and benefits of the procedure were explained to the patient and informed consent was obtained both orally and written. Directly prior to the start of the procedure, a formal timeout was done in the exam room. Using topical anesthetic and sterile technique 1.024 mCi of filtered Technetium-99m sulfur colloid was injected subdermally in 8 fractionated periareolar injections. FINDINGS: Images obtained 1 hour after injection show a dominant focus in the right axilla. IMPRESSION: There is a dominant focus in the right axilla. <Electronically signed by Poornima Lr > 11/22/20 1129 <Electronically signed by Joseph Alba > 11/22/20 1202
[2020-11-22] MEDS ORDERED: ROXI1TAB2 PO (12:35)
[2020-11-22] MEDS ORDERED: ONDANSETRON 4MG/2ML VIAL IV PRN (13:00)
[2020-11-22] MEDS ORDERED: fentaNYL 100 MCG/2 ML INJECTION (J3010) IV PRN (13:00)
[2020-11-22] MEDS ORDERED: oxyCODONE 5MG TAB PO PRN (13:00)
[2020-11-22] MEDS ORDERED: LR 1,000 ML IV SCH (13:00)
[2020-11-22] MEDS ORDERED: HYDROMORPHONE HCL 0.5 MG/ 0.5 ML SYRINGE (J1170 PER 1) IV PRN (13:00)
[2020-11-22 15:10] VITALS: BP 165/86
--- NOTE | 2020-11-22 15:27 | REP ---
INDICATION: INTRAOP WIRE PLACEMENT. Excisional biopsy right breast. COMPARISON: Comparison mammography and MRI scanning September 20, 2020 and October 04, 2020 respectively.. TECHNIQUE: Four views. FINDINGS: Specimen radiography demonstrates a irregular soft tissue mass centrally located in the specimen. This measures 1.8 cm. There is a needle biopsy marker clip along 1 edge of this mass and the Mansfield needle wire localization device is seen along this edge of the mass. The edge of the mass is 6.8 mm from the nearest specimen margin radiographically. IMPRESSION: Specimen radiography findings as above. Irregular 1.8 cm mass along with a Mansfield localizer wire and a needle biopsy marker clip are seen within the specimen. <Electronically signed by Pete Clancy > 11/22/20 1523
--- NOTE | 2020-11-24 22:40 | ROOPDOC ---
[facility] Report Of Operation Report of Operation DATE OF PROCEDURE: 11/22/20 PREPROCEDURE DIAGNOSES: Right breast cancer POSTPROCEDURE DIAGNOSES: same PROCEDURE: RIght breast lumpectomy with intraop wire placement and right s entinel lymph node biopsy SURGEON: Dr Ayo Camarena ANESTHESIA: general ESTIMATED BLOOD LOSS: minimal COMPLICATIONS: none REMARKS: clip and the mass identified in the specimen DESCRIPTION OF PROCEDURE: INDICATIONS: Ms. Rodriguez is a 55-year-old woman who was found to have a suspicious right breast mass on screening mammogram. This was evaluated with US and sonographic correlate was found. US guided biopsy of the Right breast mass came back as IDC, ER 5%, TX Negative, HER-2 Negative, grade 3. Preop MRI of the breast was done and did not show any additional suspicious lesions or suspicious lymph nodes. She opted for breast conservative surgery with sentinel lymph node biopsy on the right. She was medically cleared for surgery by her primary care doctor. Risks and possible complications of surgical procedure including bleeding, infection and injury to surrounding structures were explained to the patient and she wished to proceed. Consent was signed. My initials were placed on the operative site. Subcutaneous injection of 5000 units of heparin was done. The injection of radioactive tracer was done in radiology department preoperatively. Lymphoscintigraphy imaging was reviewed in preop. DETAILS: Patient was taken to the operating room and placed on the operating room table. A sign in was called stating patients name, date of and the procedure to be done. Preoperative antibiotics were infused. Smooth induction of general anesthesia was done. Patients hands were extended on arm rests. Care was taken not to over extend the arms. Pillow was placed under the knees and a foam was placed under the heels. Sequential compression devices were placed and assured to function correctly. Procedure was started with right breast intraop wire localization. Appropriate time out was done and patients name, date of , and the procedure to be done were confirmed. Right breast was cleaned by me. Intraoperative ultrasound was used to confirm location of the Hydromark clip. Location of the clip was marked on the skin as well. 21 G CÜR Medias Breast Lesion Localization Needle was used to place 25 cm wire through the lesion. The end of the wire was passed a centimeter deep. The images were captured confirming adequate placement of the localizing wire. Delinquency Prevention Social Worker assisted with the wire placement. Next, patients right breast and axilla were prepped and draped in the usual fashion. Care was taken not to displace the wire. Appropriate time out was done again prior second part of the procedure. Patients name, date of , and the procedure to be done were confirmed. Procedure was started with sentinel lymph node biopsy. Neoprobe was used to locate area of maximum intensity of the signal. Local anesthetic using 1% lidocaine and 0.25 % Marcaine 50/50 mix was injected. An incision was made with scalpel number 15 at the inferior aspect of axillary hair line in the right axilla where the maximum signal was identified. The sharp and blunt dissection was continued through the subcutaneous adipose tissue. Clavipectoral fascia was opened. Neoprobe was used to guide the dissection. First sentinel lymph node was identified and excised. The ex-vivo 10 second count was [id number]. The specimen was labeled with patients name and sent to pathology. No additional lymph nodes with high radioactive signal were identified. The 10 second count of the background was 69. Adequate hemostasis was assured. Additional local anesthetic was injected into surrounding tissues. Wound was irrigated. Clavipectoral fascia was closed with 3-0 Vicryl interrupted suture. Dermal layer was closed at the end of the case with 3-0 Monocryl and skin was closed with 4-0 Monocryl. Surgical glue was applied to the incision at the end of the procedure. Next, our attention was turned toward the right breast. Local anesthetic using 1% lidocaine and 0.25 % Marcaine 50/50 mix was injected at the site of planned inferior periareolar incision. The incision was made with the scalpel. Subcutaneous skin flaps were raised and the guide wire was carefully pulled into the wound. Dissection was carries along the wire until the previously marked on the skin area of target lesion location was encountered. At this point, wider excision of the tissue surrounding the wire was done. The Hydromark clip was identified in the tissue with intraoperative hockey stick ultrasound probe. The lesion was found to be very deep in the breast, close to the muscle. The end of the wire was identified with palpation. The lumpectomy specimen was carefully removed from the breast keeping its proper orientation and moved to the back table where margins were marked with the surgical inking kit following the [facility] recommendations. Specimen was then placed on the grid and placed in [employer] Specimen Imaging System. The image revealed the lesion, the wire and the Hydromark in the specimen. Margins of the specimen appeared to be adequate in the intraop radiography and no additional margins were felt to needed. The specimen measured 9.5 x5.3 cm. The specimen was labeled with patients name and right lumpectomy and sent to pathology. Wound was thoroughly irrigated. Adequate hemostasis was assured. Additional local anesthetic was injected into surrounding tissues. Clips were placed to clint the cavity. space was approximated with 2-0 Vicryl. The dermis was closed with 3-0 Vicryl and skin was closed with 4-0 Monocryl. Surgical glue was placed over the incision. Patient emerged from the anesthesia without any problems. Fluffs were placed over the operative site and patients chest was wrapped snuggly in the REMY wrap. Sponge and instrument counts were done and were correct. Patient tolerated procedure well and was taken to recovery unit in stable condition. AYO CAMARENA DO Nov 24, 2020 22:40
== END 2020-11-22 15:31 | disposition home or self-care (01) ==
LOC: M SDC 06:26
PROVIDERS: ATTEND Surgery
DX: C50.911 Malignant neoplasm of unspecified site of right female breast (principal); I10 Essential (primary) hypertension; E03.9 Hypothyroidism, unspecified; E78.5 Hyperlipidemia, unspecified; F32.9 Major depressive disorder, single episode, unspecified; G47.33 Obstructive sleep apnea (adult) (pediatric); Z87.891 Personal history of nicotine dependence; Z80.9 Family history of malignant neoplasm, unspecified; Z13.79 Encounter for other screening for genetic and chromosomal anomalies; Z79.899 Other long term (current) drug therapy
CPT/HCPCS: 19125; 36415; 38525; 76942; 78195; 81025; 86850; 86900; 86901; 88307; A9541; J0131; J0690; J1100; J1170; J1644; J2250; J2370; J2405; J3010; Q9968

== ENCOUNTER → 2020-11-24 | Outpatient (CLI) | payer MEDICARE ==
[~2020-11-24] MED LIST changes: -HEPARIN SOD (PORCINE) 5000UNITS/ML 1ML VIAL/SYRINGE SQ ONE; -LR 1,000 ML IV ONE; +ROXI1TAB2 PO; -ceFAZolin SOD 2 GM in IV 1 EA IV ONE
--- NOTE | 2020-11-25 13:43 | ECHO ---
DATE OF PROCEDURE: 11/24/2020 Age: 55 Gender: Female Height: 68 inches Weight: 254 pounds Body surface area: 2.26 m2 PATIENT LOCATION: Outpatient. REFERRING PHYSICIAN: Geovanni Minor MD. INDICATION: Potentially cardiotoxic chemotherapy. MEASUREMENTS: 2D Measurements: RV 3.1 cm LV 4.4 cm Septum 1.2 cm Posterior wall 1.2 cm Aortic Root 3.6 cm LA 4.0 cm LVEF 75% Doppler Measurements: AV 1.21 m/s LVOT 0.95 m/s MV-E 60, A 67, E/A ratio 1 Early mitral deceleration time 164 msec E prime medial 8, A prime medial 9.8, E prime lateral 9.3 Average E/E prime ratio 6.9/PCWP 10.5 mmHg PV 0.7 m/s Pulmonary artery acceleration time 110 msec PASP 34 mmHg IVC 1.9 cm COMMENTS: Normal sinus rhythm without intraventricular conduction disturbance. Somewhat technically challenging study in light of the patients body habitus, but diagnostically useful information was still obtained. M-mode and two-dimensional echocardiography was performed with pulse, continuous wave, color flow, and tissue Doppler studies. Strain study was also performed. Borderline concentric left ventricular hypertrophy with hyperkinetic wall motion. Borderline left atrial enlargement with currently normal Doppler assessment of LV diastolic function and estimated mean left atrial pressure. Normal right heart chamber sizes and motion with Doppler sign of borderline pulmonary hypertension. Normal IVC size and collapse against an elevated central venous pressure. Normal aortic dimensions. Mild aortic valvular sclerosis without stenosis and no more than trace aortic insufficiency. Normal appearing mitral valve and leaflet excursion with no posterior systolic buckling. Trace mitral insufficiency. Normal appearing tricuspid valve with trace insufficiency. No apparent intracardiac mass or pericardial effusion. This patients left ventricular systolic function is normal. Average global longitudinal strain interestingly measured 14.4, but this was not meaningful in the setting of preserved global wall motion as described above. MTDD
== END ==
LOC: M CARPUL 10:23
PROVIDERS: ATTEND Specialist
DX: C50.919 Malignant neoplasm of unspecified site of unspecified female breast (principal); Z92.21 Personal history of antineoplastic chemotherapy; Z79.899 Other long term (current) drug therapy

== ENCOUNTER → 2020-11-25 | Outpatient (CLI) | payer MEDICARE ==
[~2020-11-25] MED LIST changes: +LIDOCAINE 1% MDV 20ML VIAL As Ordered ONE; +MIDAZOLAM INJ 2MG/2ML VIAL (J2250 PER 1MG) As Ordered ONE; +PROMETHAZINE INJ 25 MG/ML VIAL (J2550) As Ordered ONE; +ceFAZolin 1GM VIAL (J0690 PER 500MG) As Ordered ONE; +diphenhydrAMINE 50MG/ML VIAL (J1200) As Ordered ONE; +fentaNYL 100 MCG/2 ML INJECTION (J3010) As Ordered ONE
--- NOTE | 2020-11-25 08:29 | IRHP ---
[facility] IR Pre-Procedure H & P General Date of Service: Nov 25, 2020 Procedure: Same Day Surgery Interval History and Physical I have seen the patient and reviewed last H & P performed within 30 days. There is no significant interval change. History of Present Illness Chief Complaint The patient is a 55-year-old female admitted with a reason for visit of Breast Ca. PRE-PROCEDURE DIAGNOSIS: Right-sided breast cancer HEART: Normal rate. LUNGS: Normal breathing at rest. ASA Classification ASA Classification: II-Mild systemic disease, III-Severe systemic dis. Mallampati Score: II NPO: Yes Problems with prior sedation: No Obstructive Sleep Apnea: Yes Plan moderate sedation Allergies Coded Allergies: aspirin (Verified Allergy, Severe, anaphylaxis, 11/22/20) bupropion (Verified Allergy, Intermediate, heart races, 11/22/20) Home Medications Scheduled Amitriptyline HCl (Amitriptyline HCl), 150 MG PO QHS, (Reported) Calcium Carbonate (Tums Ultra), 1,000 MG PO PRN, (Reported) Calcium Carbonate/Vitamin D3 (Calcium 600 + Vit D 400 Softgl), 1 CAP PO DAILY, (Reported) Levothyroxine Sodium (Levothyroxine Sodium), 112 MCG PO DAILY, (Reported) Losartan Potassium (Losartan Potassium), 1 TAB PO DAILY, (Reported) Multivitamin (Multivitamins), 1 TAB PO DAILY, (Reported) Nabumetone (Nabumetone), 1,500 MG PO QHS, (Reported) Psyllium Husk (with Sugar) (Metamucil Powder), 1 PKT PO DAILY, (Reported) Simvastatin (Simvastatin), 20 MG PO QPM, (Reported) Tolterodine Tartrate (Tolterodine Tartrate ER), 1 CAP PO QHS, (Reported) Discontinued Medications Oxycodone HCl (Roxicodone), 5 MG PO Q6HP PRN for pain Discontinued Reason: Pt states not taking VS, I&O, 24H, Fishbone Vital Signs/I&O Vital Signs Date Time Temp Pulse Resp B/P (MAP) Pulse Ox O2 Delivery O2 Flow Rate FiO2 11/25/20 07:55 97.5 100 16 98 Room Air YONATAN LOMBARDI MD Nov 25, 2020 08:29
[2020-11-25 11:16] VITALS: BP 158/80
--- NOTE | 2020-11-30 12:22 | IRPON ---
IR Postoperative Note Date Of Procedure: Nov 25, 2020 Time Of Procedure: 16:00 IR Postoperative Note IR Ultrasound and fluoroscopy guided port placement. IR Ultrasound of the neck. IR Moderate sedation. Clinical indication: Right-sided breast cancer. Physician: Dr. Berry. Procedure: The patient was advised of the benefits, risks, and alternatives of the procedure and informed consent was obtained. A time-out was performed with verification of the patient's name, MRN, site of procedure and type of procedure to be performed. The patient was positioned in the supine position on the angiographic table. The site was prepped and draped in the usual sterile fashion. Moderate sedation was performed by the physician including the presence of an independent trained RN who assisted and monitored the patient's level of consciousness and physiologic status. Following the administration of fentanyl and Versed , the physician spent 45 minutes of continuous face to face time with the patient. Ultrasound of the neck reveals a patent and compressible left internal jugular vein which is smaller closer to the clavicle. A instructor painting radiograph reveals widened mediastinum. The neck and anterior chest wall were anesthetized with lidocaine. The left internal jugular vein was accessed using a microintroducer needle under ultrasound guidance, via a lateral approach. An 018 wire was advanced into the vein but could not be passed centrally. Repeat ultrasound of the left internal jugular vein demonstrates echogenicity within the vein and further contraction. Using ultrasound guidance, a second access site was anesthetized with lidocaine. After successful ultrasound-guided access of the left internal jugular vein, a wire was advanced under fluoroscopic guidance centrally into the inferior vena cava. Judging by the angulations on the wire, this second access site was felt to be too high in the neck, and far above the clavicle for favorable left-sided port placement. Therefore needle, wire and sheath were removed, pressure held and hemostasis achieved. The patient tolerated the procedure well and was returned to the PRU in stable condition. Estimated blood loss: <5 ml. Complications: None. Conclusion: 1. Left neck ultrasound demonstrates contracted left internal jugular vein. 2. Further contraction and partial thrombosis of left internal jugular vein status post attempted needle access. Patient will be referred for PICC line. Thank you for this referral. YONATAN BERRY MD Nov 30, 2020 12:22
== END ==
LOC: M IRPRO 07:39
PROVIDERS: ATTEND Radiology Diagnostic Radiology
DX: C50.911 Malignant neoplasm of unspecified site of right female breast (principal); Z79.899 Other long term (current) drug therapy
CPT/HCPCS: 36561; 99152; 99153; C1769; C1788; C1894; J0690; J1200; J1642; J1644; J2250; J3010

== ENCOUNTER → 2020-11-29 | Outpatient (CLI) | payer MEDICARE ==
[~2020-11-29] MED LIST changes: +BD P0.9I2 IV; +HEPA1INJ8 IV; -LIDOCAINE 1% MDV 20ML VIAL As Ordered ONE; -MIDAZOLAM INJ 2MG/2ML VIAL (J2250 PER 1MG) As Ordered ONE; -PROMETHAZINE INJ 25 MG/ML VIAL (J2550) As Ordered ONE; -ceFAZolin 1GM VIAL (J0690 PER 500MG) As Ordered ONE; -diphenhydrAMINE 50MG/ML VIAL (J1200) As Ordered ONE; -fentaNYL 100 MCG/2 ML INJECTION (J3010) As Ordered ONE
[2020-11-29 13:15] VITALS: BP 167/92
--- NOTE | 2020-11-29 15:50 | REP ---
INDICATION: BREAST CA, FAILED LT PORT. COMPARISON: None. TECHNIQUE: The procedure was performed under the direct supervision of Dr. Clancy. The risks and benefits of the procedure were explained to the patient and informed consent was obtained. The left basilic vein was localized using ultrasound guidance. The skin was prepped and draped in a sterile fashion. 2% lidocaine was used as a local anesthetic. Using ultrasound guidance the basilic vein was cannulated and a 0.018 guidewire was inserted and advanced to the SVC using fluoroscopic guidance. The needle was removed and a 4.5 Israeli dilator and peel-away sheath was inserted over the guide wire. A 4.5 Israeli single lumen catheter was cut to length of 48 cm. The dilator was removed and the catheter was inserted over the guide wire with the tip ending in the SVC. The peel-away sheath was removed and the catheter was flushed with heparinized saline as per Hospital protocol. The catheter was affixed to the skin and a sterile dressing was applied. The patient tolerated the procedure well and there were no immediate complications. 0.3 minutes of fluoro time was utilized for this procedure. FINDINGS: None IMPRESSION: PICC line insertion was site rite. The tip of the catheter is in the SVC. <Electronically signed by Hermann Calloway > 11/29/20 1546 <Electronically signed by Pete Clancy > 11/29/20 1543
== END ==
LOC: M IRPRO 10:08
PROVIDERS: ATTEND Radiology Diagnostic Radiology
DX: C50.912 Malignant neoplasm of unspecified site of left female breast (principal); T82.598A Other mechanical complication of other cardiac and vascular devices and implants, initial encounter; X58.XXXA Exposure to other specified factors, initial encounter
CPT/HCPCS: 36573; C1751

== ENCOUNTER → 2020-12-09 | Outpatient (CLI) | payer MEDICARE ==
[~2020-12-09] MED LIST changes: +ONDA8TAB10 PO; +PROC10TA4 PO
== END ==
LOC: M LABSMTC 13:07
PROVIDERS: ATTEND Anesthesiology
DX: Z01.812 Encounter for preprocedural laboratory examination (principal); Z20.822 Contact with and (suspected) exposure to COVID-19

== ENCOUNTER → 2020-12-13 | Outpatient (POV) | payer MEDICARE ==
[~2020-12-13] MED LIST changes: +CYCL1CAP2 PO; +DOXO2INJ IV; +PEG6SYR SC
--- NOTE | 2020-12-16 10:17 | IRPN ---
[facility] IR Progress Note IR Progress Note DATE: Dec 13, 2020 Follow up scheduled in error. Allergies Coded Allergies: aspirin (Verified Allergy, Severe, anaphylaxis, 11/22/20) latex (Verified Allergy, Intermediate, skin rash, 12/12/20) bupropion (Verified Adverse Reaction, Intermediate, heart races, 12/12/20) YONATAN LOMBARDI MD Dec 16, 2020 10:17
== END ==
LOC: M TMIRPOV 10:36
PROVIDERS: ATTEND Radiology Diagnostic Radiology
DX: Z53.9 Procedure and treatment not carried out, unspecified reason (principal)

== ENCOUNTER 2020-12-14 10:59 | Day surgery (SDC) | payer MEDICARE ==
[~2020-12-14] VITALS: Ht 172.7 cm; Wt 114.2 kg
[~2020-12-14 10:59] MED LIST changes: +HEPARIN SOD (PORCINE) 5000UNITS/ML 1ML VIAL/SYRINGE As Ordered ONE; +LIDOCAINE 1% SDV 30ML VIAL As Ordered ONE; +LIDOCAINE 2% 100MG/5ML SDV (FOR ANES.) As Ordered ONE; +LR 1,000 ML IV ONE; +MIDAZOLAM INJ 2MG/2ML VIAL (J2250 PER 1MG) As Ordered ONE; +ceFAZolin SOD 2 GM in IV 1 EA IV ONE; +fentaNYL 100 MCG/2 ML INJECTION (J3010) As Ordered ONE; +propofoL 200 MG/20 ML VIAL As Ordered ONE
[2020-12-14] MEDS ORDERED: PHENYLephrine 500MCG 5ML (100MCG/ML) SYRINGE As Ordered ONE (13:10)
[2020-12-14] MEDS ORDERED: propofoL 200 MG/20 ML VIAL As Ordered ONE ×2 (13:35→13:36)
[2020-12-14 15:30] VITALS: BP 127/69
--- NOTE | 2020-12-14 16:42 | REP ---
INDICATION: INFUSAPORT PLACEMENT. COMPARISON: None. TECHNIQUE: Three C-arm views chest. FINDINGS: Right central venous catheter is seen with the tip in the superior vena cava. IMPRESSION: 2 seconds fluoroscopy time utilized. <Electronically signed by Joseph Alba > 12/14/20 [id number]
--- NOTE | 2020-12-15 09:44 | RO ---
OPERATIVE NOTE DATE OF OPERATION: 12/14/2020 PREOPERATIVE DIAGNOSIS: Breast cancer with need for intravenous access for chemotherapy. POSTOPERATIVE DIAGNOSIS: Breast cancer with need for intravenous access for chemotherapy. PROCEDURE PERFORMED: Implantation of right internal jugular dual lumen power port [id number] using ultrasound and fluoroscopic guidance. The port placed was reference code [id number] and lot number [id number]. SURGEON: Luis Harris MD SAP BPC DEVELOPER: ANESTHESIA: Monitored anesthesia care with local of 1% lidocaine. INDICATIONS FOR THE PROCEDURE: The patient is a 55-year-old woman who was recently diagnosed with right breast cancer and underwent a lumpectomy with sentinel lymph node biopsy. The sentinel node was negative, but her estrogen receptors were barely positive at 5% with negative progesterone and negative HER2/marilu. She is scheduled for chemotherapy. She is now for placement of an [id number] to support her chemotherapy. OPERATIVE PROCEDURE: The patient was brought to the operating room and placed on the table in a supine position. She received sedation from anesthesia. The patient's right upper chest, shoulder and neck were prepped and draped in a sterile fashion. The ultrasound probe was draped as well. The ultrasound was used to examine the right neck and the carotid artery and internal jugular vein were both clearly identified. The patient was tilted into a Trendelenburg position to distend the internal jugular vein more fully. Local anesthesia was achieved with 1% Xylocaine and a needle was inserted under ultrasound guidance into the internal jugular vein. The guidewire was passed without difficulty. The skin was nicked at the guidewire insertion site. The peel-away sheath was inserted over the guidewire and the dual lumen catheter, which had been previously flushed with heparinized saline, was inserted through the peel-away sheath and the sheath was removed. The patient was taken out of Trendelenburg position at this point. The catheter was withdrawn to approximately 15 cm of the skin surface. At this point, fluoroscopy was performed and the tip of the catheter was identified. The catheter was pulled back to the approximately 12.5 to 13 cm clint at the skin at the insertion site. Additional local anesthesia was infiltrated in the infraclavicular fossa and a transverse incision was made and a subcutaneous pocket was created to hold the dual lumen port. The catheter was then tunneled through the subcutaneous tissues to the port site using the provided tunneler. The port had been flushed with heparinized saline in advance. The catheter was cut to the appropriate length and then connected to the port using the locking ring per instructions. The port was placed into the subcutaneous pocket. The port was accessed and both lumens were flushed with saline. Both ports would return blood readily. The port was sutured to the underlying fibrofatty tissue with 2 simple sutures of 3-0 Vicryl. The skin edges were appropriated with some buried dermal sutures of 3-0 Vicryl. The two skin incisions were then both closed with buried 5-0 Vicryl. Dermabond was applied to both incisions. Each port was then accessed and flushed with 8 to 10 ml of 100 units per ml heparin solution. The patient tolerated the procedure well without apparent complication. She was awakened and transported to advanced recovery in stable condition.
== END 2020-12-14 15:43 | disposition home or self-care (01) ==
LOC: M SDC 10:59
PROVIDERS: ATTEND Surgery
DX: C50.911 Malignant neoplasm of unspecified site of right female breast (principal); Z17.0 Estrogen receptor positive status [ER+]; Z45.2 Encounter for adjustment and management of vascular access device; Z88.8 Allergy status to other drugs, medicaments and biological substances; Z91.040 Latex allergy status; G47.30 Sleep apnea, unspecified; E03.9 Hypothyroidism, unspecified; I10 Essential (primary) hypertension; E78.5 Hyperlipidemia, unspecified; F41.9 Anxiety disorder, unspecified; F32.9 Major depressive disorder, single episode, unspecified; Z79.01 Long term (current) use of anticoagulants; Z79.899 Other long term (current) drug therapy
CPT/HCPCS: 36561; 76000; C1788; J0690; J1642; J1644; J2250; J2370; J3010

== ENCOUNTER 2020-12-17 08:50 | Inpatient (IN) | payer MEDICARE ==
[~2020-12-17] VITALS: Ht 172.7 cm; Wt 113.7 kg
[~2020-12-17 08:50] MED LIST changes: -HEPARIN SOD (PORCINE) 5000UNITS/ML 1ML VIAL/SYRINGE As Ordered ONE; -LIDOCAINE 1% SDV 30ML VIAL As Ordered ONE; -LIDOCAINE 2% 100MG/5ML SDV (FOR ANES.) As Ordered ONE; -LR 1,000 ML IV ONE; -MIDAZOLAM INJ 2MG/2ML VIAL (J2250 PER 1MG) As Ordered ONE; -ceFAZolin SOD 2 GM in IV 1 EA IV ONE; -fentaNYL 100 MCG/2 ML INJECTION (J3010) As Ordered ONE; -propofoL 200 MG/20 ML VIAL As Ordered ONE
[2020-12-17] MEDS: amLODIPine 5 MG TAB PO SCH (09:00)
[2020-12-17] MEDS ORDERED: ACETAMINOPHEN 500 MG TAB PO ONE (09:35)
[2020-12-17 10:08] LABS: HEMATOCRIT 37.7 % (36.0-47.0); MEAN CORPUSCULAR HEMOGLOBIN 32.1 pg (27.0-33.0); MEAN CORPUSCULAR HGB CONC 34.5 g/dl (32.0-36.5); MEAN CORPUSCULAR VOLUME 93.1 fl (80.0-96.0); PLATELET COUNT, AUTOMATED 129 10^3/uL (150-450); RED BLOOD COUNT 4.05 10^6/uL (4.00-5.40); WHITE BLOOD COUNT 2.5 10^3/uL (4.0-10.0)
[2020-12-17 10:45] LABS: ATYPICAL LYMPH 9 % (0-5); BASOPHILS 4 % (0-1); EOSINOPHILS 7 % (0-3); LYMPHOCYTES 24 % (16-44); METAMYELOCYTES 2 % (0-0); MONOCYTES 7 % (0-5); NEUTROPHILS 30 % (28-66)
[2020-12-17 10:48] LABS: POLYCHROMASIA 1+
[2020-12-17 10:49] LABS: PLATELET ESTIMATE DECREASED (NORMAL)
[2020-12-17] MEDS ORDERED: PIPERACILLIN/TAZOBACTAM SOD 4.5 GM in D5W MINI-BAG PLUS 50 ML IV ONE (10:50)
[2020-12-17 10:51] LABS: GIANT PLATELETS 1+
[2020-12-17 10:53] LABS: MICROCYTOSIS 1+
[2020-12-17 10:57] LABS: ERYTHROCYTE SEDIMENTATION RATE 45 mm/hr (0-30)
[2020-12-17] MEDS ORDERED: NS 3,480 ML in IV 1 EA IV ONE (11:00)
--- NOTE | 2020-12-17 11:28 | REP ---
INDICATION: R port infection. COMPARISON: Portable chest dated 12/16/2011. TECHNIQUE: Upright PA and lateral chest. FINDINGS: There is a right IJ Wchonl-M-Chch with the tip in the superior vena cava in satisfactory position. There is minor atelectasis in the right costophrenic angle. The lung ruggiero are otherwise clear. Cardiac size is normal. The larry, mediastinum, and skeletal structures are unremarkable. IMPRESSION: Minor atelectasis in the right costophrenic angle. Right IJ [id number] catheter. <Electronically signed by Joseph Olea > 12/17/20 1125
[2020-12-17] MEDS ORDERED: AMLO1TAB24 PO (11:43)
[2020-12-17 12:41] LABS: RSV AMPLIFICATION NEGATIVE (NEGATIVE)
[2020-12-17] MEDS ORDERED: CALCIUM CARBONATE 500 MG CHEW U/D PO PRN (13:50)
[2020-12-17 14:30] VITALS: BP 127/68
--- NOTE | 2020-12-17 15:09 | REP ---
INDICATION: R chest port area for r/o abscess or collection. COMPARISON: None. TECHNIQUE: Multiple ultrasonographic images of soft tissues at the site of a right chest port where there is swelling. FINDINGS: There are 2 focal fluid collections at the site of swelling. One collection measures 1.7 x 1.7 x 3.5 cm. The other collection measures 1.6 x 0.7 x 1.9 cm. These collections are nonspecific and could represent abscess, hematoma or seroma. IMPRESSION: There are 2 focal fluid collections at the site of swelling related to the chest wall port. <Electronically signed by Joseph Olea > 12/17/20 [id number]
--- NOTE | 2020-12-17 15:36 | HPEPDOC ---
[facility] Medical History & Physical Date of Admission Dec 17, 2020 Date of Service: Dec 17, 2020 Attending Physician: CINDI JAMESON MD History and Physical CHIEF COMPLAINT: Red inflammed port site. Recently placed on 12/15 HISTORY OF PRESENT ILLNESS: Very pleasant 55 yo W with recently diagnosed triple negative breast cancer diagnosed in 10/2020 s/p L lumpectomy recently started on chemotherapy and had a R IJ infusaport placed by Dr. Harris in the outpatient setting on 12/15 who now comes into the ED for progressive erythema and pain around the portsite with some local swelling without noted drainage, fever, chills, nausea, emesis, rigors or chills, chest pain, palpitations or shortness of breath. HOSPITAL COURSE: She arrived hemodynamically stable, afebrile and breathing comfortably on room air with the only complaint being the swollen red painful port site.Workup was notable for leukopenia with WBC 2.5, hgb 13, platelets 129, ESR 45, CRP 3.04, lactate 1.05, CXR without noted pathology, Na 136, K 3.5, Cr 0.7 and was given a dose of empiric zosyn after drawing BCx and medicine was consulted for admission for likely line infection unclear if CLABSI or simply soft tissue. PAST MEDICAL HISTORY: Recent diagnosis of triple negative breast CA HTN HLD childhood asthma MATTHIAS hypothyroidism depression anxiety History of optical migraines GERD varicose veins PAST SURGICAL HISTORY: Bilateral breast biopsies and L breast lumpectomy D&C Laser back surgery SOCIAL HISTORY: No smoking No alcohol use No illicit drug use FAMILY HISTORY: Father: CAD, DM, HTN, Afib, skin CA, CHF Mother: Rheumatoid Arthritis, Dementia Siblings: Traumatic brain injury, PTSD Children: Healthy ALLERGIES: Please see below. REVIEW OF SYSTEMS: 12 point ROS was performed and the only positive elements are mentioned in the HPI above. It was otherwise grossly negative HOME MEDICATIONS: Please see below. PHYSICAL EXAMINATION: VITAL SIGNS: HDS, afebrile, breathing comfortably on room air GENERAL APPEARANCE: NAD HEENT: NCAT, EOMI, PERRLA, MMM CARDIOVASCULAR: RRR, no m/r/g LUNGS: CTAB, tender R upper chest wall with erythema at port site and surrounding area streaking up to her neck ABDOMEN: soft, normoactive bowel sounds throughout, NTND EXTREMITIES: WWP, no LE edema NEUROLOGICAL: CN 2-12 intact, speech is clear, moving all extremities, nonfocal examination PSYCHIATRIC: Aox3, normal mood and affect LABORATORY DATA and IMAGING: summarized above MICROBIOLOGY: Please see below. ASSESSMENT: 55 yo W with recently diagnosed triple negative breast cancer diagnosed in 10/2020 s/p L lumpectomy recently started on chemotherapy and had a R IJ infusaport placed by Dr. Harris in the outpatient setting on 12/15 who now comes into the ED for progressive erythema and pain around the port and now admitted for at least cellulitis and line infection. R port infection and cellulitis: -pending site ultrasound to r/o presence of collection -consulted surgery, Dr. Blas -s/p zosyn in the ED, will continue zosyn -MRSA PCR swab -f/u BCx -s/p sepsis bolus in the ED HTN: -continue home losartan and amlodipine Hypothyroidism: -continue home levothyroxine HLD: -continue home simvastatin DVT ppx: heparin 5000u BID Vital Signs Vital Signs Date Time Temp Pulse Resp B/P (MAP) Pulse Ox O2 Delivery O2 Flow Rate FiO2 12/17/20 12:56 99.2 101 20 125/59 (81) 98 Room Air Laboratory Data Labs 24H Laboratory Tests 2 12/17/20 09:52: Neutrophils (%) (Auto) , Nucleated Red Blood Cells % (auto) 0.8H, Neutrophils 30, Band Neutrophils 17H, Lymphocytes (Manual) 24, Monocytes (Manual) 7H, Eosinophils (Manual) 7H, Basophils (Manual) 4H, Metamyelocytes 2H, Atypical Lymphocytes 9H, Polychromasia 1+, Microcytosis 1+, Macrocytosis 1+, Giant Platelets 1+, Platelet Estimate DECREASED, Erythrocyte Sedimentation Rate 45H, C-Reactive Protein, Quantitative 3.04H 12/17/20 09:55: POC Glucose (Misc Panel) 106H, POC Sodium (Misc Panel) 136, POC Potassium (Misc Panel) 3.5, POC Chloride (Misc Panel) 98, POC Total CO2 (Misc Panel) 28.0H, POC Blood Urea Nitrogen (Misc Panel 8, POC Ionized Calcium (Misc Panel) 4.8, POC Creatinine (Misc Panel) 0.7, POC Hematocrit (Misc Panel) 38.0 12/17/20 11:40: Coronavirus (COVID-19)(PCR) NEGATIVE, Influenza Type A (RT-PCR) NEGATIVE, Influenza Type B (RT-PCR) NEGATIVE, Respiratory Syncytial Virus (PCR) NEGATIVE 12/17/20 11:50: POC Lactate (Misc Panel) 1.05 CBC/BMP Laboratory Tests 12/17/20 09:52 Microbiology Microbiology 12/17/20 Blood Culture, Received Pending 12/17/20 Blood Culture, Received Pending Home Medications Scheduled Amitriptyline HCl (Amitriptyline HCl) 150 Mg Tablet, 150 MG PO QHS Amlodipine Besylate (Amlodipine Besylate) 5 Mg Tablet, 5 MG PO DAILY Calcium Carbonate/Vitamin D3 (Calcium 600 + Vit D 400 Softgl) 1 Each Capsule, 1 CAP PO DAILY Cyclophosphamide (Cyclophosphamide) 50 Mg Capsule, 50 MG PO ASDIRECTED PER DOCTOR'S ORDERS FOR CHEMO Doxorubicin HCl (Doxorubicin HCl) 50 Mg/25 Ml Vial, 50 MG IV ASDIRECTED PER DOCTOR'S ORDERS FOR CHEMO Levothyroxine Sodium (Levothyroxine Sodium) 112 Mcg Tablet, 112 MCG PO DAILY Losartan Potassium (Losartan Potassium) 100 Mg Tablet, 100 MG PO DAILY Multivitamin (Multivitamins) 1 Each Tablet, 1 TAB PO DAILY Nabumetone (Nabumetone) 750 Mg Tablet, 1,500 MG PO QHS Psyllium Husk (with Sugar) (Metamucil Powder) 575 Gm Powder, 2 PKT PO DAILY MIX WITH JUICE OR WATER Simvastatin (Simvastatin) 20 Mg Tablet, 20 MG PO QPM Tolterodine Tartrate (Tolterodine Tartrate ER) 4 Mg Cap.er.24h, 1 CAP PO QHS Scheduled PRN Calcium Carbonate (Tums Ultra) 400 Mg Tab.chew, 1,000 MG PO TID PRN for HEARTBURN/INDIGESTION Miscellaneous Medications Pegfilgastrim (Neulasta) 6 Mg/0.6 Ml Syringe, 6 MG SC Allergies Coded Allergies: aspirin (Verified Allergy, Severe, anaphylaxis, 11/22/20) latex (Verified Allergy, Intermediate, skin rash, 12/12/20) bupropion (Verified Adverse Reaction, Intermediate, heart races, 12/12/20) A-FIB/CHADSVASC A-FIB History Current/History of A-Fib/PAF?: No Current PO Anticoag Therapy: No Age/Risk Factor Scoring CHADSVASC: CHADSVASC Response (Comments) Value Age Risk Factor Age < 65 years old 0 Gender Risk Factor Female 1 Hx of CHF No 0 Hx of HTN Yes 1 Hx of Stroke/TIA/or VTE No 0 Hx of Diabetes No 0 Hx of Vascular Disease No 0 Total 2 Treatment Treatment ordered: NONE Reason Anticoagulant not given: Not indicated/[id number] CINDI JAMESON MD Dec 17, 2020 15:36
[2020-12-17] MEDS: PIPERACILLIN/TAZOBACTAM SOD 3.375 GM in D5W MINI-BAG PLUS 50 ML IV SCH (17:30)
[2020-12-17 20:26] VITALS: BP 125/65
[2020-12-17] MEDS: TOLTERODINE TARTRATE 2 MG LA CAP (DETROL LA) PO SCH (20:28)
[2020-12-17] MEDS: SIMVASTATIN 20 MG TAB PO SCH (20:28)
[2020-12-17] MEDS: AMITRIPTYLINE 50 MG TAB PO SCH (20:28)
[2020-12-17] MEDS: HEPARIN SOD (PORCINE) 5000UNITS/ML 1ML VIAL/SYRINGE SC SCH (20:29)
[2020-12-17] MEDS: ACETAMINOPHEN TAB 650MG DOSE (2X325MG) PO PRN (20:53)
[2020-12-17 21:10] VITALS: BP 118/63
[2020-12-18] MEDS: PIPERACILLIN/TAZOBACTAM SOD 3.375 GM in D5W MINI-BAG PLUS 50 ML IV SCH ×4 (00:32→17:52)
[2020-12-18] MEDS: LEVOTHYROXINE 112MCG TABLET (0.112MG) PO SCH (05:40)
[2020-12-18 06:00] VITALS: BP 116/72
[2020-12-18 06:55] LABS: HEMATOCRIT 34.8 % (36.0-47.0); HEMOGLOBIN 11.9 g/dl (12.0-15.5); MEAN CORPUSCULAR HEMOGLOBIN 31.5 pg (27.0-33.0); MEAN CORPUSCULAR HGB CONC 34.2 g/dl (32.0-36.5); MEAN CORPUSCULAR VOLUME 92.1 fl (80.0-96.0); PLATELET COUNT, AUTOMATED 117 10^3/uL (150-450); RED BLOOD COUNT 3.78 10^6/uL (4.00-5.40); WHITE BLOOD COUNT 4.2 10^3/uL (4.0-10.0)
[2020-12-18 07:12] LABS: BLOOD UREA NITROGEN 8 MG/DL (7-18); CALCIUM LEVEL 8.5 MG/DL (8.5-10.1); CARBON DIOXIDE LEVEL 25 MEQ/L (21-32); CHLORIDE LEVEL 107 MEQ/L (98-107); CREATININE FOR GFR 0.82 MG/DL (0.55-1.30); GLOMERULAR FILTRATION RATE > 60.0 (>51); GLUCOSE, FASTING 114 MG/DL (70-100); MAGNESIUM LEVEL 1.9 MG/DL (1.8-2.4); POTASSIUM SERUM 3.4 MEQ/L (3.5-5.1); SODIUM LEVEL 140 MEQ/L (136-145)
[2020-12-18] MEDS: CALCIUM/VITAMIN D 500 MG TAB PO SCH (08:34)
[2020-12-18] MEDS: HEPARIN SOD (PORCINE) 5000UNITS/ML 1ML VIAL/SYRINGE SC SCH ×2 (08:34→21:10)
[2020-12-18] MEDS: MULTIVITAMINS/MINERALS THERAP 1 TAB PO SCH (08:36)
[2020-12-18] MEDS: LOSARTAN 50MG TABLET PO SCH (08:36)
[2020-12-18] MEDS: amLODIPine 5 MG TAB PO SCH ×2 (08:38→08:46)
[2020-12-18] MEDS: METAMUCIL (PSYLLIUM) PACKET PO SCH (08:39)
[2020-12-18] MEDS ORDERED: POTASSIUM CHLORIDE 10 MEQ SR TABLET PO ONE (09:15)
[2020-12-18] MEDS: ACETAMINOPHEN TAB 650MG DOSE (2X325MG) PO PRN ×2 (10:17→21:10)
--- NOTE | 2020-12-18 10:56 | IPNPDOC ---
Text Note Date of Service The patient was seen on 12/18/20. NOTE SUBJECTIVE: -Tmax of 100.1 -No acute issues overnight PHYSICAL EXAMINATION: VITAL SIGNS: HDS, afebrile, breathing comfortably on room air GENERAL APPEARANCE: NAD HEENT: NCAT, EOMI, PERRLA, MMM CARDIOVASCULAR: RRR, no m/r/g LUNGS: CTAB, tender R upper chest wall with erythema at port site and surrounding area ABDOMEN: soft, normoactive bowel sounds throughout, NTND EXTREMITIES: WWP, no LE edema NEUROLOGICAL: CN 2-12 intact, speech is clear, moving all extremities, nonfocal examination PSYCHIATRIC: Aox3, normal mood and affect LABORATORY DATA: WBC 4.2 Hgb 11.9 platelets 117 Na 140 K 3.4 Cr 0.82 IMAGING: R chest wall US: FINDINGS: There are 2 focal fluid collections at the site of swelling. One collection measures 1.7 x 1.7 x 3.5 cm. The other collection measures 1.6 x 0.7 x 1.9 cm. These collections are nonspecific and could represent abscess, hematoma or seroma. IMPRESSION: There are 2 focal fluid collections at the site of swelling related to the chest wall port. MICROBIOLOGY: Please see below. ASSESSMENT: 55 yo W with recently diagnosed triple negative breast cancer diagnosed in 10/2020 s/p L lumpectomy recently started on chemotherapy and had a R IJ infusaport placed by Dr. Harris in the outpatient setting on 12/15 who is now admitted for at least cellulitis with surrounding collection unclear if seroma, hematoma or abscess and potential line infection. R port infection and cellulitis with small collections: -Ultrasound showed small collections unclear if seroma, hematoma or abscess. -consulted surgery, Dr. Blas -continue zosyn -MRSA PCR swab was negative -f/u BCx -s/p sepsis bolus in the ED HTN: -continue home losartan and amlodipine Hypothyroidism: -continue home levothyroxine HLD: -continue home simvastatin DVT ppx: heparin 5000u BID VS,Fishbone, I+O VS, Fishbone, I+O Laboratory Tests 12/17/20 09:52 12/18/20 06:04 Vital Signs Date Time Temp Pulse Resp B/P (MAP) Pulse Ox O2 Delivery O2 Flow Rate FiO2 12/18/20 08:46 108 141/79 12/18/20 06:00 98.4 19 98 Room Air I&O- Last 24 Hours up to 6 AM 12/18/20 06:00 Intake Total 1960 ml Balance 1960 ml CINDI JAMESON MD Dec 18, 2020 08:59
--- NOTE | 2020-12-18 11:17 | CR.PDOC ---
General Surgery Consultation Date of Consultation 12/18/20 History and Physical CONSULT REPORT FOR: hospitalist service REASON FOR CONSULTATION: swelling around infusaport HISTORY OF PRESENT ILLNESS: PAST MEDICAL HISTORY: 1. . PAST SURGICAL HISTORY: INCLUDES: 1. . PREVIOUS ANESTHESIA REACTIONS: ALLERGIES: Please see below. FAMILY HISTORY: . HOME MEDICATIONS: Please see below. REVIEW OF SYSTEMS: GENERAL: [Denies chills, reports weight gain, reports feeling febrile yesterday]. HEENT: [Denies blurred vision and double vision. Denies ear symptoms. Denies hoarseness]. NECK: Denies any neck pain]. CARDIOVASCULAR: [Denies chest pain and palpitations]. MUSCULOSKELETAL: [Denies arthralgias, back pain and thrombophlebitis]. SKIN: [Denies rash]. NEUROLOGIC: [Denies headache, stroke and transient ischemic attack]. PSYCHIATRIC: [Denies anxiety and depression]. ENDOCRINE: [Denies thyroid disease]. HEMATOLOGY/ONCOLOGY: [Denies bleeding or clotting disorder]. HEART: [Denies any chest pains, palpitations, paroxysmal dyspnea, orthopnea]. PULMONARY: [Denies chronic cough, dyspnea and wheezing]. GASTROINTESTINAL: [Denies rectal bleeding, family history of colon cancer, constipation, diarrhea, dysphagia, heartburn and jaundice]. GENITOURINARY: [Denies dysuria, frequency, hematuria and nocturia]. ENDOCRINE: [Denies polydipsia, polyphagia, polyuria, heat or cold intolerance]. INFECTIOUS: [Denies any recent upper respiratory tract infection, UTI, need for use of antibiotics]. NUTRITION: [Reports good appetite]. PHYSICAL EXAMINATION: VITALS SIGNS: Please see below. GENERAL APPEARANCE:[Patient seen, laying in bed, awake, alert, and oriented. Comfortable, in no acute distress]. SKIN: [Warm and moist]. HEENT: [Normocephalic, atraumatic. [place] palpebral conjunctiva, anicteric sclerae. Lips and mucosa appear moist]. NECK: [Supple, no thyromegaly. No obvious jugular venous distention]. LUNGS: [Clear to auscultation bilaterally. No wheezing appreciated]. HEART: [No chest wall abnormalities. Regular rate and rhythm with no murmurs appreciated]. ABDOMEN: Abdomen is , soft, . [No hepatosplenomegaly. No umbilical or groin herniations, nondistended. No noticeable rebound or guarding. No grimacing with palpation. No rebound tenderness. No masses appreciated]. EXTREMITIES: [Extremities have no deformities. No edema identified] ANCILLARIES: . LABORATORY DATA: Please see below. IMAGING STUDIES: . IMPRESSION AND PLAN: swelling around infusaport, looks to be more at the subcutaneous tract from the tunnelling prob more hematoma than cellulitis. Only a small amount of fluid(hematoma) seen on US. continue abx, ice pack to the chest, let it demarcate vs clean out in the or if continues to expand, worsen Vital Signs Vital Signs Date Time Temp Pulse Resp B/P (MAP) Pulse Ox O2 Delivery O2 Flow Rate FiO2 12/18/20 08:46 108 141/79 12/18/20 06:00 98.4 19 98 Room Air I&Os I&O- Last 24 Hours up to 6 AM 12/18/20 06:00 Intake Total 1960 ml Balance 1960 ml Laboratory Data Labs 24H Laboratory Tests 2 12/17/20 11:40: Coronavirus (COVID-19)(PCR) NEGATIVE, Influenza Type A (RT-PCR) NEGATIVE, Influenza Type B (RT-PCR) NEGATIVE, Respiratory Syncytial Virus (PCR) NEGATIVE 12/17/20 11:50: POC Lactate (Misc Panel) 1.05 12/17/20 16:32: Methicillin-Resist S.aureus DNA PCR NOT DETECTED 12/18/20 06:04: Nucleated Red Blood Cells % (auto) 0.7H, Anion Gap 8, Glomerular Filtration Rate > 60.0, Calcium Level 8.5, Magnesium Level 1.9 CBC/BMP Laboratory Tests 12/18/20 06:04 Microbiology Microbiology 12/17/20 Blood Culture - Preliminary, Resulted No growth after 24 hours . All specim... 12/17/20 Blood Culture - Preliminary, Resulted No growth after 24 hours . All specim... Home Medications Scheduled Amitriptyline HCl (Amitriptyline HCl) 150 Mg Tablet, 150 MG PO QHS, (Reported) Amlodipine Besylate (Amlodipine Besylate) 5 Mg Tablet, 5 MG PO DAILY, (Reported) Calcium Carbonate/Vitamin D3 (Calcium 600 + Vit D 400 Softgl) 1 Each Capsule, 1 CAP PO DAILY, (Reported) Cyclophosphamide (Cyclophosphamide) 50 Mg Capsule, 50 MG PO ASDIRECTED, (Reported) PER DOCTOR'S ORDERS FOR CHEMO Doxorubicin HCl (Doxorubicin HCl) 50 Mg/25 Ml Vial, 50 MG IV ASDIRECTED, (Repo rted) PER DOCTOR'S ORDERS FOR CHEMO Levothyroxine Sodium (Levothyroxine Sodium) 112 Mcg Tablet, 112 MCG PO DAILY, (Reported) Losartan Potassium (Losartan Potassium) 100 Mg Tablet, 100 MG PO DAILY, (Reported) Multivitamin (Multivitamins) 1 Each Tablet, 1 TAB PO DAILY, (Reported) Nabumetone (Nabumetone) 750 Mg Tablet, 1,500 MG PO QHS, (Reported) Psyllium Husk (with Sugar) (Metamucil Powder) 575 Gm Powder, 2 PKT PO DAILY, (Reported) MIX WITH JUICE OR WATER Simvastatin (Simvastatin) 20 Mg Tablet, 20 MG PO QPM, (Reported) Tolterodine Tartrate (Tolterodine Tartrate ER) 4 Mg Cap.er.24h, 1 CAP PO QHS, (Reported) Scheduled PRN Calcium Carbonate (Tums Ultra) 400 Mg Tab.chew, 1,000 MG PO TID PRN for HEARTBURN/INDIGESTION, (Reported) Miscellaneous Medications Pegfilgastrim (Neulasta) 6 Mg/0.6 Ml Syringe, 6 MG SC, (Reported) Allergies Coded Allergies: aspirin (Verified Allergy, Severe, anaphylaxis, 11/22/20) latex (Verified Allergy, Intermediate, skin rash, 12/12/20) bupropion (Verified Adverse Reaction, Intermediate, heart races, 12/12/20) EVELYN ALLISON MD Dec 18, 2020 11:17
[2020-12-18 14:17] VITALS: BP 143/78
[2020-12-18] MEDS: SIMVASTATIN 20 MG TAB PO SCH (21:10)
[2020-12-18] MEDS: TOLTERODINE TARTRATE 2 MG LA CAP (DETROL LA) PO SCH (21:10)
[2020-12-18] MEDS: AMITRIPTYLINE 50 MG TAB PO SCH (21:10)
[2020-12-18 22:00] VITALS: BP 110/64
[2020-12-19] MEDS: PIPERACILLIN/TAZOBACTAM SOD 3.375 GM in D5W MINI-BAG PLUS 50 ML IV SCH ×5 (00:29→23:46)
[2020-12-19] MEDS: LEVOTHYROXINE 112MCG TABLET (0.112MG) PO SCH (05:05)
[2020-12-19] MEDS: ACETAMINOPHEN TAB 650MG DOSE (2X325MG) PO PRN ×2 (05:05→20:01)
[2020-12-19 06:00] VITALS: BP 140/74
[2020-12-19 06:49] LABS: HEMATOCRIT 35.8 % (36.0-47.0); HEMOGLOBIN 12.1 g/dl (12.0-15.5); MEAN CORPUSCULAR HEMOGLOBIN 31.7 pg (27.0-33.0); MEAN CORPUSCULAR HGB CONC 33.8 g/dl (32.0-36.5); MEAN CORPUSCULAR VOLUME 93.7 fl (80.0-96.0); PLATELET COUNT, AUTOMATED 120 10^3/uL (150-450); RED BLOOD COUNT 3.82 10^6/uL (4.00-5.40); WHITE BLOOD COUNT 6.6 10^3/uL (4.0-10.0)
[2020-12-19 07:13] LABS: BLOOD UREA NITROGEN 8 MG/DL (7-18); CARBON DIOXIDE LEVEL 25 MEQ/L (21-32); CHLORIDE LEVEL 109 MEQ/L (98-107); CREATININE FOR GFR 0.78 MG/DL (0.55-1.30); GLOMERULAR FILTRATION RATE > 60.0 (>51); GLUCOSE, FASTING 117 MG/DL (70-100); POTASSIUM SERUM 3.6 MEQ/L (3.5-5.1); SODIUM LEVEL 142 MEQ/L (136-145)
[2020-12-19 07:14] LABS: CALCIUM LEVEL 8.6 MG/DL (8.5-10.1)
[2020-12-19] MEDS: METAMUCIL (PSYLLIUM) PACKET PO SCH (08:28)
[2020-12-19] MEDS: HEPARIN SOD (PORCINE) 5000UNITS/ML 1ML VIAL/SYRINGE SC SCH ×2 (08:28→20:02)
[2020-12-19] MEDS: MULTIVITAMINS/MINERALS THERAP 1 TAB PO SCH (08:28)
[2020-12-19] MEDS: LOSARTAN 50MG TABLET PO SCH (08:28)
[2020-12-19] MEDS: CALCIUM/VITAMIN D 500 MG TAB PO SCH (08:28)
[2020-12-19] MEDS: amLODIPine 5 MG TAB PO SCH (08:30)
--- NOTE | 2020-12-19 11:09 | IPNPDOC ---
Text Note Date of Service The patient was seen on 12/19/20. NOTE SUBJECTIVE: -No acute issues overnight PHYSICAL EXAMINATION: VITAL SIGNS: HDS, afebrile, breathing comfortably on room air GENERAL APPEARANCE: NAD HEENT: NCAT, EOMI, PERRLA, MMM CARDIOVASCULAR: RRR, no m/r/g LUNGS: CTAB, tender R upper chest wall with erythema at port site and surrounding area ABDOMEN: soft, normoactive bowel sounds throughout, NTND EXTREMITIES: WWP, no LE edema NEUROLOGICAL: CN 2-12 intact, speech is clear, moving all extremities, nonfocal examination PSYCHIATRIC: Aox3, normal mood and affect LABORATORY DATA: WBC 6.6 Hgb 12.1 K 3.6 Cr 0.78 IMAGING: R chest wall US: FINDINGS: There are 2 focal fluid collections at the site of swelling. One collection measures 1.7 x 1.7 x 3.5 cm. The other collection measures 1.6 x 0.7 x 1.9 cm. These collections are nonspecific and could represent abscess, hematoma or seroma. IMPRESSION: There are 2 focal fluid collections at the site of swelling related to the chest wall port. MICROBIOLOGY: Please see below. ASSESSMENT: 55 yo W with recently diagnosed triple negative breast cancer diagnosed in 10/2020 s/p L lumpectomy recently started on chemotherapy and had a R IJ infusaport placed by Dr. Harris in the outpatient setting on 12/15 who is now admitted for possible cellulitis with surrounding collection unclear if seroma, hematoma or abscess and potential line infection, with surgery suspecting most likely hematoma. R port infection and cellulitis with small collections: -Ultrasound showed small collections unclear if seroma, hematoma or abscess. -consulted surgery, Dr. Blas --> suspecting its a hematoma and unlikely cellulitis vs. very unlikely abscess. Agrees with continuing empiric a ntibiotics. -continue zosyn, day 3 -MRSA PCR swab was negative -f/u BCx -s/p sepsis bolus in the ED HTN: -continue home losartan and amlodipine Hypothyroidism: -continue home levothyroxine HLD: -continue home simvastatin DVT ppx: heparin 5000u BID VS,Fishbone, I+O VS, Fishbone, I+O Laboratory Tests 12/19/20 06:05 Vital Signs Date Time Temp Pulse Resp B/P (MAP) Pulse Ox O2 Delivery O2 Flow Rate FiO2 12/19/20 08:28 144/79 12/19/20 06:00 97.3 98 18 Room Air 96.0 12/18/20 22:00 95 I&O- Last 24 Hours up to 6 AM 12/19/20 06:00 Intake Total 2230 ml Balance 2230 ml CINDI JAMESON MD Dec 19, 2020 08:56
[2020-12-19 14:00] VITALS: BP 135/73
[2020-12-19] MEDS: AMITRIPTYLINE 50 MG TAB PO SCH (20:01)
[2020-12-19] MEDS: SIMVASTATIN 20 MG TAB PO SCH (20:01)
[2020-12-19] MEDS: TOLTERODINE TARTRATE 2 MG LA CAP (DETROL LA) PO SCH (20:01)
[2020-12-19 22:00] VITALS: BP 101/62
[2020-12-20] MEDS: PIPERACILLIN/TAZOBACTAM SOD 3.375 GM in D5W MINI-BAG PLUS 50 ML IV SCH ×2 (05:11→12:11)
[2020-12-20] MEDS: LEVOTHYROXINE 112MCG TABLET (0.112MG) PO SCH (05:12)
[2020-12-20 06:00] VITALS: BP 124/80
[2020-12-20 07:03] LABS: HEMATOCRIT 36.8 % (36.0-47.0); HEMOGLOBIN 12.7 g/dl (12.0-15.5); MEAN CORPUSCULAR HEMOGLOBIN 32.1 pg (27.0-33.0); MEAN CORPUSCULAR HGB CONC 34.5 g/dl (32.0-36.5); MEAN CORPUSCULAR VOLUME 92.9 fl (80.0-96.0); PLATELET COUNT, AUTOMATED 158 10^3/uL (150-450); RED BLOOD COUNT 3.96 10^6/uL (4.00-5.40); WHITE BLOOD COUNT 7.9 10^3/uL (4.0-10.0)
[2020-12-20 07:25] LABS: BLOOD UREA NITROGEN 9 MG/DL (7-18); CALCIUM LEVEL 8.9 MG/DL (8.5-10.1); CARBON DIOXIDE LEVEL 27 MEQ/L (21-32); CHLORIDE LEVEL 106 MEQ/L (98-107); CREATININE FOR GFR 0.91 MG/DL (0.55-1.30); GLOMERULAR FILTRATION RATE > 60.0 (>51); GLUCOSE, FASTING 114 MG/DL (70-100); POTASSIUM SERUM 3.7 MEQ/L (3.5-5.1); SODIUM LEVEL 139 MEQ/L (136-145)
[2020-12-20] MEDS: CALCIUM/VITAMIN D 500 MG TAB PO SCH (08:46)
[2020-12-20] MEDS: amLODIPine 5 MG TAB PO SCH (08:46)
[2020-12-20] MEDS: MULTIVITAMINS/MINERALS THERAP 1 TAB PO SCH (08:46)
[2020-12-20 08:47] VITALS: BP 144/84
[2020-12-20] MEDS: METAMUCIL (PSYLLIUM) PACKET PO SCH (08:47)
[2020-12-20] MEDS: LOSARTAN 50MG TABLET PO SCH (08:47)
[2020-12-20] MEDS: HEPARIN SOD (PORCINE) 5000UNITS/ML 1ML VIAL/SYRINGE SC SCH (08:47)
[2020-12-20 09:14] LABS: C REACTIVE PROTEIN QUANTITATIV 6.72 MG/DL (0.00-0.30)
[2020-12-20 09:58] LABS: ERYTHROCYTE SEDIMENTATION RATE 56 mm/hr (0-30)
[2020-12-20] MEDS ORDERED: CEPH500C PO (12:13)
[2020-12-20] MEDS ORDERED: PROB250C PO (12:13)
--- NOTE | 2020-12-20 16:44 | IPNPDOC ---
Text Note Date of Service The patient was seen on 12/20/20. NOTE I followed up on the patient today. She is comfortable and looks to be doing w ell. She is afebrile. She remains antibiotics. On examination. The peripheral cellulitis seems to be resolved there is a deep red erythema on the skin following the tract of the subcutaneous tunnel from the right IJ to the subcutaneous port and around the port and some skin ecchymosis below this. Area is nontender on palpation. All incisions are intact without any active drainage Impression and plan Most likely this is more a hematoma than an actual infection related to the port. I filled the erythema would continue to gradually improve. There is no fluctuance nor any other signs of infection/inflammation aside from the erythema. She can go home. She can be switched to oral antibiotics were short period. She can follow up with Dr. Harris in the office. Charli HASSAN, I+O VSCharli, I+O Laboratory Tests 12/20/20 06:51 Vital Signs Date Time Temp Pulse Resp B/P (MAP) Pulse Ox O2 Delivery O2 Flow Rate FiO2 12/20/20 08:47 144/84 12/20/20 06:00 98.3 102 18 93 Room Air 12/19/20 06:00 96.0 I&O- Last 24 Hours up to 6 AM 12/20/20 05:59 Intake Total 3200 ml Output Total 0 ml Balance 3200 ml EVELYN ALLISON MD Dec 20, 2020 16:44
--- NOTE | 2020-12-20 22:07 | DS.PDOC ---
Discharge Summary General Date of Admission Dec 17, 2020 at 13:47 Date of Discharge 12/20/20 Attending Physician: Julieth Muhammad MD Discharge Summary HISTORY OF PRESENT ILLNESS: Very pleasant 55 yo W with recently diagnosed triple negative breast cancer diagnosed in 10/2020 s/p L lumpectomy recently started on chemotherapy and had a R IJ infusaport placed by Dr. Harris in the outpatient setting on 12/15 who now comes into the ED for progressive erythema and pain around the portsite with some local swelling without noted drainage, fever, chills, nausea, emesis, rigors or chills, chest pain, palpitations or shortness of breath. HOSPITAL COURSE: She arrived hemodynamically stable, afebrile and breathing comfortably on room air with the only complaint being the swollen red painful port site.Workup was notable for leukopenia with WBC 2.5, hgb 13, platelets 129, ESR 45, CRP 3.04, lactate 1.05, CXR without noted pathology, Na 136, K 3.5, Cr 0.7 and was given a dose of empiric zosyn after drawing BCx and medicine was consulted for admission for likely line infection unclear if CLABSI or simply soft tissue. BCx grew nothing. Erythema, swelling and pain much improved over several days. By 12/20/20 paitent's cellulitis seemed to have resolved and surgery thought this is more likely a hematoma vs. actual infection related to port. Decision was made by surgery to follow up with Dr. Harris in the office, can be discharged with PO keflex. She is to return to ER or notify medical professional if swelling, redness or pain should increase. PAST MEDICAL HISTORY: Recent diagnosis of triple negative breast CA HTN HLD childhood asthma MATTHIAS hypothyroidism depression anxiety History of optical migraines GERD varicose veins PAST SURGICAL HISTORY: Bilateral breast biopsies and L breast lumpectomy D&C Laser back surgery SOCIAL HISTORY: No smoking No alcohol use No illicit drug use FAMILY HISTORY: Father: CAD, DM, HTN, Afib, skin CA, CHF Mother: Rheumatoid Arthritis, Dementia Siblings: Traumatic brain injury, PTSD Children: Healthy DISCHARGE MEDS: Please see below SUBJECTIVE: -No acute issues overnight PHYSICAL EXAMINATION: VITAL SIGNS: HDS, afebrile, breathing comfortably on room air GENERAL APPEARANCE: NAD HEENT: NCAT, EOMI, PERRLA, MMM CARDIOVASCULAR: RRR, no m/r/g LUNGS/chest: CTAB, a deep red erythema on the skin following the tract of the subcutaneous tunnel from the right IJ to the subcutaneous port and around the port and some skin ecchymosis below this ABDOMEN: soft, normoactive bowel sounds throughout, NTND EXTREMITIES: WWP, no LE edema NEUROLOGICAL: CN 2-12 intact, speech is clear, moving all extremities, nonfocal examination PSYCHIATRIC: Aox3, normal mood and affect LABORATORY DATA: Please see below MICROBIOLOGY: BCx NG MRSA neg IMAGING: R chest wall US: There are 2 focal fluid collections at the site of swelling related to the chest wall port. ASSESSMENT: 55 yo W with recently diagnosed triple negative breast cancer diagnosed in 10/2020 s/p L lumpectomy recently started on chemotherapy and had a R IJ infusaport placed by Dr. Harris in the outpatient setting on 12/15 who is now admitted for R chest wall hematoma vs. cellulitis. PLAN: R chest wall hematoma vs. cellulitis with small collections -Ultrasound showed small collections unclear if seroma, hematoma or abscess. -Surgery Dr. Blas --> suspecting its a hematoma and unlikely cellulitis vs. very unlikely abscess. -Treated with IV zosyn here, transitioned to PO keflex on 12/20/20 for discharge -F/u with Dr. Harris as o/p Breast cancer diagnosed in 10/2020 s/p L lumpectomy recently started on chemotherapy -Advised to f/u with surgery before cleared to resume chemotherapy due to being on abx -F/u with med/onc o/p HTN: -C/w losartan and amlodipine Hypothyroidism: -C/w levothyroxine HLD: -C/w simvastatin DISPOSITION: Follow up with Dr. Harris after discharged. TIME SPENT ON DISCHARGE: 35 minutes. Vital Signs/I&Os Vital Signs Date Time Temp Pulse Resp B/P (MAP) Pulse Ox O2 Delivery O2 Flow Rate FiO2 12/20/20 08:47 144/84 12/20/20 06:00 98.3 102 18 93 Room Air 12/19/20 06:00 96.0 I&O- Last 24 Hours up to 6 AM 12/20/20 06:00 Intake Total 3600 ml Output Total 0 ml Balance 3600 ml Laboratory Data Labs 24H Laboratory Tests 2 12/20/20 06:51: Nucleated Red Blood Cells % (auto) 0.3H, Erythrocyte Sedimentation Rate 56H, Anion Gap 6L, Glomerular Filtration Rate > 60.0, Calcium Level 8.9, C-Reactive Protein, Quantitative 6.72H CBC/BMP Laboratory Tests 12/20/20 06:51 Microbiology Microbiology 12/17/20 Blood Culture - Preliminary, Resulted No Growth after 72 hours. All specime... 12/17/20 Blood Culture - Preliminary, Resulted No Growth after 72 hours. All specime... Discharge Medications Scheduled Amitriptyline HCl (Amitriptyline HCl) 150 Mg Tablet, 150 MG PO QHS, (Reported) Amlodipine Besylate (Amlodipine Besylate) 5 Mg Tablet, 5 MG PO DAILY, (Reported) Calcium Carbonate/Vitamin D3 (Calcium 600 + Vit D 400 Softgl) 1 Each Capsule, 1 CAP PO DAILY, (Reported) Cephalexin (Cephalexin) 500 Mg Capsule, 500 MG PO QID Cyclophosphamide (Cyclophosphamide) 50 Mg Capsule, 50 MG PO ASDIRECTED, (Reported) PER DOCTOR'S ORDERS FOR CHEMO Doxorubicin HCl (Doxorubicin HCl) 50 Mg/25 Ml Vial, 50 MG IV ASDIRECTED, (R eported) PER DOCTOR'S ORDERS FOR CHEMO Levothyroxine Sodium (Levothyroxine Sodium) 112 Mcg Tablet, 112 MCG PO DAILY, (Reported) Losartan Potassium (Losartan Potassium) 100 Mg Tablet, 100 MG PO DAILY, (Reported) Multivitamin (Multivitamins) 1 Each Tablet, 1 TAB PO DAILY, (Reported) Nabumetone (Nabumetone) 750 Mg Tablet, 1,500 MG PO QHS, (Reported) Psyllium Husk (with Sugar) (Metamucil Powder) 575 Gm Powder, 2 PKT PO DAILY, (Reported) MIX WITH JUICE OR WATER Saccharomyces Boulardii (Probiotic) 250 Mg Capsule, 250 MG PO BIDWM Simvastatin (Simvastatin) 20 Mg Tablet, 20 MG PO QPM, (Reported) Tolterodine Tartrate (Tolterodine Tartrate ER) 4 Mg Cap.er.24h, 1 CAP PO QHS, (Reported) Scheduled PRN Calcium Carbonate (Tums Ultra) 400 Mg Tab.chew, 1,000 MG PO TID PRN for HEARTBURN/INDIGESTION, (Reported) Miscellaneous Medications Pegfilgastrim (Neulasta) 6 Mg/0.6 Ml Syringe, 6 MG SC, (Reported) Allergies Coded Allergies: aspirin (Verified Allergy, Severe, anaphylaxis, 11/22/20) latex (Verified Allergy, Intermediate, skin rash, 12/12/20) bupropion (Verified Adverse Reaction, Intermediate, heart races, 12/12/20) Julieth Muhammad MD Dec 20, 2020 22:07
[2020-12-22] MEDS ORDERED: LIDO2.5C15 TOP (10:09)
== END 2020-12-20 13:55 | disposition home or self-care (01) | DRG 920 ==
LOC: M ED 08:50 → M ED INP 13:47 → ENRESERV 14:13 → M MS5PR 14:45
PROVIDERS: ADMIT Internal Medicine; ATTEND Internal Medicine
DX: L76.32 Postprocedural hematoma of skin and subcutaneous tissue following other procedure (principal); L03.313 Cellulitis of chest wall; I10 Essential (primary) hypertension; C50.912 Malignant neoplasm of unspecified site of left female breast; E03.9 Hypothyroidism, unspecified; G47.33 Obstructive sleep apnea (adult) (pediatric); F41.9 Anxiety disorder, unspecified; F32.9 Major depressive disorder, single episode, unspecified; J45.909 Unspecified asthma, uncomplicated; G43.909 Migraine, unspecified, not intractable, without status migrainosus; K21.9 Gastro-esophageal reflux disease without esophagitis; I83.90 Asymptomatic varicose veins of unspecified lower extremity; Z79.899 Other long term (current) drug therapy; Z91.040 Latex allergy status; Z88.6 Allergy status to analgesic agent; Z88.8 Allergy status to other drugs, medicaments and biological substances

== ENCOUNTER → 2021-01-02 | Outpatient (REF) | payer MEDICARE ==
[~2021-01-02] MED LIST changes: +AMLO1TAB24 PO; +CEPH500C PO; +LEVO500T3 PO; +LIDO2.5C15 TOP; -NABU-53 PO; +NABU-73 PO; +PROB250C PO
== END ==
LOC: M LAB REF 17:43
PROVIDERS: ATTEND Surgery
DX: L08.9 Local infection of the skin and subcutaneous tissue, unspecified (principal)

== ENCOUNTER → 2021-01-19 | Outpatient (REF) | payer MEDICARE ==
[~2021-01-19] MED LIST changes: +FLOR250C PO; +LIDO1CRE42 TOP; -LIDO2.5C15 TOP
[2021-01-19 12:56] LABS: BASO % 3.4 % (0.0-1.0); EOS # 0.2 10^3/uL (0.0-0.5); HEMATOCRIT 37.2 % (36.0-47.0); HEMOGLOBIN 12.7 g/dl (12.0-15.5); LYMPH # 0.3 10^3/uL (1.5-5.0); LYMPH % 45.8 % (24.0-44.0); MEAN CORPUSCULAR HEMOGLOBIN 32.2 pg (27.0-33.0); MEAN CORPUSCULAR HGB CONC 34.1 g/dl (32.0-36.5); MEAN CORPUSCULAR VOLUME 94.4 fl (80.0-96.0); MONO % 6.8 % (2.0-8.0); NEUTROPHILS % 16.9 % (36.0-66.0); RED BLOOD COUNT 3.94 10^6/uL (4.00-5.40)
[2021-01-19 13:50] LABS: EOS % 25.4 % (0.0-3.0); NEUTROPHILS # 0.1 10^3/uL (1.5-8.5); PLATELET COUNT, AUTOMATED 61 10^3/uL (150-450); WHITE BLOOD COUNT 0.6 10^3/uL (4.0-10.0)
== END ==
LOC: M SFHCADAM 10:42
PROVIDERS: ATTEND Family Medicine
DX: E03.9 Hypothyroidism, unspecified (principal); T80.219D Unspecified infection due to central venous catheter, subsequent encounter
CPT/HCPCS: 84443; 85025; 85049; 85055; 87070; 87077; 87186; G0463

== ENCOUNTER → 2021-02-14 | Outpatient (CLI) | payer MEDICARE ==
[~2021-02-14] MED LIST changes: +CLAR10CA3 PO; +FAMO20TA PO; +HEPAINJ10 IV; +MIRA3350 PO; +NORM0.9I9 IV; +OXYC1TAB23 PO
[2021-02-14 11:53] LABS: BASO % 0.3 % (0.0-1.0); EOS % 0.2 % (0.0-3.0); HEMATOCRIT 30.5 % (36.0-47.0); HEMOGLOBIN 10.5 g/dl (12.0-15.5); LYMPH # 0.2 10^3/uL (1.5-5.0); MEAN CORPUSCULAR HEMOGLOBIN 33.8 pg (27.0-33.0); MEAN CORPUSCULAR HGB CONC 34.4 g/dl (32.0-36.5); MEAN CORPUSCULAR VOLUME 98.1 fl (80.0-96.0); MONO # 0.1 10^3/uL (0.0-0.8); MONO % 1.2 % (2.0-8.0); NEUTROPHILS # 4.7 10^3/uL (1.5-8.5); NEUTROPHILS % 78.1 % (36.0-66.0); PLATELET COUNT, AUTOMATED 144 10^3/uL (150-450); RED BLOOD COUNT 3.11 10^6/uL (4.00-5.40)
[2021-02-14 12:24] LABS: ALBUMIN 3.6 GM/DL (3.2-5.2); ALT/SGPT 22 U/L (12-78); BILIRUBIN,TOTAL 0.6 MG/DL (0.2-1.0); BLOOD UREA NITROGEN 13 MG/DL (7-18); CALCIUM LEVEL 8.9 MG/DL (8.5-10.1); CARBON DIOXIDE LEVEL 27 MEQ/L (21-32); CHLORIDE LEVEL 105 MEQ/L (98-107); CREATININE FOR GFR 0.68 MG/DL (0.55-1.30); GLOMERULAR FILTRATION RATE > 60.0 (>51); GLUCOSE, FASTING 104 MG/DL (70-100); POTASSIUM SERUM 3.6 MEQ/L (3.5-5.1); SODIUM LEVEL 138 MEQ/L (136-145); TOTAL PROTEIN 6.8 GM/DL (6.4-8.2)
== END ==
LOC: M WUC 09:11
PROVIDERS: ATTEND Specialist
DX: C50.911 Malignant neoplasm of unspecified site of right female breast (principal)

== ENCOUNTER → 2021-02-15 | Outpatient (CLI) | payer MEDICARE ==
[~2021-02-15] MED LIST changes: +LIDOCAINE 1% MDV 20ML VIAL As Ordered ONE
[2021-02-15 13:43] VITALS: BP 134/69
--- NOTE | 2021-02-15 15:25 | REP ---
INDICATION: BREAST CA. COMPARISON: None. TECHNIQUE: The procedure was performed under the direct supervision of Dr. Alba. The risks and benefits of the procedure were explained to the patient and informed consent was obtained. The left basilic vein was localized using ultrasound guidance. The skin was prepped and draped in a sterile fashion. 2% lidocaine was used as a local anesthetic. Using ultrasound guidance the basilic vein was cannulated and a 0.018 guidewire was inserted and advanced to the SVC using fluoroscopic guidance, and last image hold technology. The needle was removed and a 4.5 Cymraes dilator and peel-away sheath was inserted over the guide wire. A 4.5 Cymraes single lumen catheter was cut to length of 46 cm. The dilator was removed and the catheter was inserted over the guide wire with the tip ending in the SVC. The peel-away sheath was removed and the catheter was flushed with heparinized saline as per Hospital protocol. The catheter was affixed to the skin and a sterile dressing was applied. The patient tolerated the procedure well and there were no immediate complications. 0.2 minutes of fluoro time was utilized for this procedure. FINDINGS: None IMPRESSION: PICC line insertion left basilic vein with the tip ending in the SVC. <Electronically signed by Hermann Calloway > 02/15/21 1521 <Electronically signed by Joseph Alba > 02/15/21 1521
== END ==
LOC: M IRPRO 13:09
PROVIDERS: ATTEND Specialist
DX: C50.911 Malignant neoplasm of unspecified site of right female breast (principal)
CPT/HCPCS: 36571; 76937; C1751; J1642; J1644

== ENCOUNTER → 2021-02-21 | Outpatient (CLI) | payer MEDICARE ==
[~2021-02-21] MED LIST changes: -LIDOCAINE 1% MDV 20ML VIAL As Ordered ONE
[2021-02-21 10:26] LABS: BASO % 0.4 % (0.0-1.0); EOS % 0.2 % (0.0-3.0); HEMATOCRIT 26.1 % (36.0-47.0); HEMOGLOBIN 8.8 g/dl (12.0-15.5); LYMPH # 0.5 10^3/uL (1.5-5.0); LYMPH % 5.3 % (24.0-44.0); MEAN CORPUSCULAR HEMOGLOBIN 33.6 pg (27.0-33.0); MEAN CORPUSCULAR HGB CONC 33.7 g/dl (32.0-36.5); MEAN CORPUSCULAR VOLUME 99.6 fl (80.0-96.0); MONO % 10.2 % (2.0-8.0); NEUTROPHILS # 6.4 10^3/uL (1.5-8.5); PLATELET COUNT, AUTOMATED 130 10^3/uL (150-450); RED BLOOD COUNT 2.62 10^6/uL (4.00-5.40); WHITE BLOOD COUNT 9.7 10^3/uL (4.0-10.0)
[2021-02-21 11:40] LABS: ALBUMIN 3.3 GM/DL (3.2-5.2); ALT/SGPT 23 U/L (12-78); BILIRUBIN,TOTAL 0.5 MG/DL (0.2-1.0); BLOOD UREA NITROGEN 8 MG/DL (7-18); CALCIUM LEVEL 8.9 MG/DL (8.5-10.1); CARBON DIOXIDE LEVEL 23 MEQ/L (21-32); CHLORIDE LEVEL 106 MEQ/L (98-107); CREATININE FOR GFR 0.83 MG/DL (0.55-1.30); GLOMERULAR FILTRATION RATE > 60.0 (>51); GLUCOSE, FASTING 136 MG/DL (70-100); POTASSIUM SERUM 3.5 MEQ/L (3.5-5.1); SODIUM LEVEL 140 MEQ/L (136-145); TOTAL PROTEIN 6.6 GM/DL (6.4-8.2)
== END ==
LOC: M WUC 08:41
PROVIDERS: ATTEND Specialist
DX: C50.911 Malignant neoplasm of unspecified site of right female breast (principal)

== ENCOUNTER → 2021-03-08 | Outpatient (CLI) | payer MEDICARE ==
[2021-03-08 10:53] LABS: BASO % 0.9 % (0.0-1.0); EOS # 0.1 10^3/uL (0.0-0.5); EOS % 1.8 % (0.0-3.0); HEMATOCRIT 27.3 % (36.0-47.0); LYMPH # 0.5 10^3/uL (1.5-5.0); LYMPH % 10.4 % (24.0-44.0); MEAN CORPUSCULAR HEMOGLOBIN 34.1 pg (27.0-33.0); MEAN CORPUSCULAR VOLUME 103.4 fl (80.0-96.0); MONO # 0.3 10^3/uL (0.0-0.8); MONO % 6.8 % (2.0-8.0); NEUTROPHILS # 3.5 10^3/uL (1.5-8.5); PLATELET COUNT, AUTOMATED 183 10^3/uL (150-450); RED BLOOD COUNT 2.64 10^6/uL (4.00-5.40); WHITE BLOOD COUNT 4.4 10^3/uL (4.0-10.0)
[2021-03-08 11:16] LABS: ALBUMIN 3.6 GM/DL (3.2-5.2); ALT/SGPT 44 U/L (12-78); BILIRUBIN,TOTAL 0.8 MG/DL (0.2-1.0); BLOOD UREA NITROGEN 14 MG/DL (7-18); CARBON DIOXIDE LEVEL 26 MEQ/L (21-32); CHLORIDE LEVEL 107 MEQ/L (98-107); GLOMERULAR FILTRATION RATE > 60.0 (>51); GLUCOSE, FASTING 117 MG/DL (70-100); POTASSIUM SERUM 3.6 MEQ/L (3.5-5.1); SODIUM LEVEL 139 MEQ/L (136-145); TOTAL PROTEIN 6.7 GM/DL (6.4-8.2)
== END ==
LOC: M WUC 08:33
PROVIDERS: ATTEND Specialist
DX: C50.911 Malignant neoplasm of unspecified site of right female breast (principal)

== ENCOUNTER 2021-03-11 06:48 | Emergency (ER) | payer MEDICARE ==
[~2021-03-11] VITALS: Ht 172.7 cm; Wt 111.8 kg
[2021-03-11] MEDS ORDERED: taxol (07:01)
[2021-03-11] MEDS ORDERED: SODIUM CHLORIDE 0.9% INJ 10 ML SYR IV PRN (08:45)
[2021-03-11 09:13] LABS: BASO % 0.3 % (0.0-1.0); EOS # 0.1 10^3/uL (0.0-0.5); EOS % 2.4 % (0.0-3.0); HEMOGLOBIN 9.3 g/dl (12.0-15.5); LYMPH # 0.4 10^3/uL (1.5-5.0); LYMPH % 12.3 % (24.0-44.0); MEAN CORPUSCULAR HEMOGLOBIN 34.8 pg (27.0-33.0); MEAN CORPUSCULAR HGB CONC 33.2 g/dl (32.0-36.5); MEAN CORPUSCULAR VOLUME 104.9 fl (80.0-96.0); MONO # 0.2 10^3/uL (0.0-0.8); MONO % 5.8 % (2.0-8.0); NEUTROPHILS # 2.3 10^3/uL (1.5-8.5); NEUTROPHILS % 78.2 % (36.0-66.0); PLATELET COUNT, AUTOMATED 177 10^3/uL (150-450); RED BLOOD COUNT 2.67 10^6/uL (4.00-5.40); WHITE BLOOD COUNT 2.9 10^3/uL (4.0-10.0)
[2021-03-11] MEDS ORDERED: CEPHALEXIN 500 MG CAP PO ONE (09:30)
[2021-03-11] MEDS ORDERED: CEPH500C PO (09:33)
[2021-03-11 09:43] VITALS: BP 154/72
== END 2021-03-11 09:44 | disposition home or self-care (01) ==
LOC: M ED 06:48
DX: Z45.2 Encounter for adjustment and management of vascular access device (principal); C50.911 Malignant neoplasm of unspecified site of right female breast; Z79.899 Other long term (current) drug therapy; Z79.891 Long term (current) use of opiate analgesic; Z88.6 Allergy status to analgesic agent; Z91.040 Latex allergy status
CPT/HCPCS: 85025; 87040; 99283; J1642

== ENCOUNTER → 2021-03-16 | Outpatient (CLI) | payer MEDICARE ==
[~2021-03-16] MED LIST changes: +taxol
[2021-03-16 12:19] LABS: BASO % 0.4 % (0.0-1.0); EOS # 0.3 10^3/uL (0.0-0.5); EOS % 5.4 % (0.0-3.0); HEMATOCRIT 28.6 % (36.0-47.0); HEMOGLOBIN 9.4 g/dl (12.0-15.5); LYMPH # 0.5 10^3/uL (1.5-5.0); LYMPH % 10.8 % (24.0-44.0); MEAN CORPUSCULAR HEMOGLOBIN 35.1 pg (27.0-33.0); MEAN CORPUSCULAR HGB CONC 32.9 g/dl (32.0-36.5); MEAN CORPUSCULAR VOLUME 106.7 fl (80.0-96.0); MONO # 0.4 10^3/uL (0.0-0.8); MONO % 8.1 % (2.0-8.0); NEUTROPHILS # 3.6 10^3/uL (1.5-8.5); NEUTROPHILS % 74.7 % (36.0-66.0); PLATELET COUNT, AUTOMATED 211 10^3/uL (150-450); RED BLOOD COUNT 2.68 10^6/uL (4.00-5.40); WHITE BLOOD COUNT 4.8 10^3/uL (4.0-10.0)
== END ==
LOC: M WUC 09:11
PROVIDERS: ATTEND Specialist
DX: C50.911 Malignant neoplasm of unspecified site of right female breast (principal)

== ENCOUNTER → 2021-03-16 | Outpatient (CLI) | payer MEDICARE ==
--- NOTE | 2021-03-16 14:18 | REP ---
INDICATION: BREAST CA LEFT HIP PAIN. COMPARISON: None. TECHNIQUE/RADIOTRACER AND DOSE: After the intravenous administration of 22.0 mCi of technetium 99 M MDP a total body bone scan was obtained. FINDINGS: A degenerative type uptake pattern is seen in the shoulders, knees, and feet. No suspicious focal or linear areas of increased activity are present. IMPRESSION: Degenerative type uptake pattern as described above. There is no compelling evidence for metastatic disease. <Electronically signed by Javi Arciniega > 03/16/21 [id number]
== END ==
LOC: M RAD 10:02
PROVIDERS: ATTEND Specialist
DX: M25.552 Pain in left hip (principal); C50.911 Malignant neoplasm of unspecified site of right female breast
CPT/HCPCS: 36415; 78306; 85025; A9503

== ENCOUNTER → 2021-03-22 | Outpatient (CLI) | payer MEDICARE ==
[2021-03-22 11:49] LABS: BASO % 0.5 % (0.0-1.0); EOS # 0.2 10^3/uL (0.0-0.5); EOS % 4.9 % (0.0-3.0); LYMPH # 0.4 10^3/uL (1.5-5.0); MEAN CORPUSCULAR HEMOGLOBIN 35.2 pg (27.0-33.0); MEAN CORPUSCULAR HGB CONC 33.3 g/dl (32.0-36.5); MEAN CORPUSCULAR VOLUME 105.6 fl (80.0-96.0); MONO # 0.2 10^3/uL (0.0-0.8); MONO % 4.9 % (2.0-8.0); NEUTROPHILS # 3.3 10^3/uL (1.5-8.5); NEUTROPHILS % 79.5 % (36.0-66.0); PLATELET COUNT, AUTOMATED 180 10^3/uL (150-450); RED BLOOD COUNT 2.84 10^6/uL (4.00-5.40); WHITE BLOOD COUNT 4.1 10^3/uL (4.0-10.0)
[2021-03-22 12:25] LABS: ALBUMIN 3.9 GM/DL (3.2-5.2); ALT/SGPT 48 U/L (12-78); BILIRUBIN,TOTAL 0.8 MG/DL (0.2-1.0); BLOOD UREA NITROGEN 10 MG/DL (7-18); CALCIUM LEVEL 8.6 MG/DL (8.5-10.1); CARBON DIOXIDE LEVEL 23 MEQ/L (21-32); CHLORIDE LEVEL 106 MEQ/L (98-107); CREATININE FOR GFR 0.83 MG/DL (0.55-1.30); GLOMERULAR FILTRATION RATE > 60.0 (>51); GLUCOSE, FASTING 115 MG/DL (70-100); POTASSIUM SERUM 3.8 MEQ/L (3.5-5.1); SODIUM LEVEL 138 MEQ/L (136-145); TOTAL PROTEIN 6.8 GM/DL (6.4-8.2)
== END ==
LOC: M WUC 09:09
PROVIDERS: ATTEND Specialist
DX: C50.919 Malignant neoplasm of unspecified site of unspecified female breast (principal)

== ENCOUNTER → 2021-03-29 | Outpatient (CLI) | payer MEDICARE ==
[2021-03-29 11:30] LABS: BASO % 0.8 % (0.0-1.0); EOS # 0.2 10^3/uL (0.0-0.5); EOS % 4.2 % (0.0-3.0); HEMATOCRIT 29.8 % (36.0-47.0); HEMOGLOBIN 9.9 g/dl (12.0-15.5); LYMPH # 0.5 10^3/uL (1.5-5.0); LYMPH % 13.9 % (24.0-44.0); MEAN CORPUSCULAR HGB CONC 33.2 g/dl (32.0-36.5); MEAN CORPUSCULAR VOLUME 105.3 fl (80.0-96.0); MONO # 0.3 10^3/uL (0.0-0.8); MONO % 7.8 % (2.0-8.0); NEUTROPHILS # 2.6 10^3/uL (1.5-8.5); NEUTROPHILS % 72.7 % (36.0-66.0); PLATELET COUNT, AUTOMATED 187 10^3/uL (150-450); RED BLOOD COUNT 2.83 10^6/uL (4.00-5.40); WHITE BLOOD COUNT 3.6 10^3/uL (4.0-10.0)
[2021-03-29 12:03] LABS: ALBUMIN 3.6 GM/DL (3.2-5.2); ALT/SGPT 46 U/L (12-78); BILIRUBIN,TOTAL 0.6 MG/DL (0.2-1.0); BLOOD UREA NITROGEN 8 MG/DL (7-18); CALCIUM LEVEL 8.9 MG/DL (8.5-10.1); CARBON DIOXIDE LEVEL 25 MEQ/L (21-32); CHLORIDE LEVEL 109 MEQ/L (98-107); CREATININE FOR GFR 0.75 MG/DL (0.55-1.30); GLOMERULAR FILTRATION RATE > 60.0 (>51); GLUCOSE, FASTING 92 MG/DL (70-100); POTASSIUM SERUM 3.9 MEQ/L (3.5-5.1); SODIUM LEVEL 141 MEQ/L (136-145); TOTAL PROTEIN 6.7 GM/DL (6.4-8.2)
== END ==
LOC: M WUC 09:23
PROVIDERS: ATTEND Specialist
DX: C50.911 Malignant neoplasm of unspecified site of right female breast (principal)

== ENCOUNTER → 2021-04-05 | Outpatient (CLI) | payer MEDICARE ==
[2021-04-05 10:40] LABS: BASO % 0.8 % (0.0-1.0); EOS # 0.1 10^3/uL (0.0-0.5); HEMATOCRIT 30.3 % (36.0-47.0); HEMOGLOBIN 10.4 g/dl (12.0-15.5); LYMPH # 0.6 10^3/uL (1.5-5.0); LYMPH % 14.2 % (24.0-44.0); MEAN CORPUSCULAR HGB CONC 34.3 g/dl (32.0-36.5); MEAN CORPUSCULAR VOLUME 104.8 fl (80.0-96.0); MONO # 0.3 10^3/uL (0.0-0.8); MONO % 6.6 % (2.0-8.0); NEUTROPHILS # 2.9 10^3/uL (1.5-8.5); NEUTROPHILS % 74.6 % (36.0-66.0); PLATELET COUNT, AUTOMATED 194 10^3/uL (150-450); RED BLOOD COUNT 2.89 10^6/uL (4.00-5.40); WHITE BLOOD COUNT 3.9 10^3/uL (4.0-10.0)
[2021-04-05 11:00] LABS: ALBUMIN 3.7 GM/DL (3.2-5.2); ALT/SGPT 52 U/L (12-78); BILIRUBIN,TOTAL 0.8 MG/DL (0.2-1.0); BLOOD UREA NITROGEN 11 MG/DL (7-18); CALCIUM LEVEL 8.9 MG/DL (8.5-10.1); CARBON DIOXIDE LEVEL 25 MEQ/L (21-32); CHLORIDE LEVEL 108 MEQ/L (98-107); CREATININE FOR GFR 0.84 MG/DL (0.55-1.30); GLOMERULAR FILTRATION RATE > 60.0 (>51); GLUCOSE, FASTING 125 MG/DL (70-100); POTASSIUM SERUM 3.8 MEQ/L (3.5-5.1); SODIUM LEVEL 141 MEQ/L (136-145); TOTAL PROTEIN 7.1 GM/DL (6.4-8.2)
== END ==
LOC: M WUC 09:19
PROVIDERS: ATTEND Specialist
DX: C50.911 Malignant neoplasm of unspecified site of right female breast (principal)

== ENCOUNTER → 2021-04-12 | Outpatient (CLI) | payer MEDICARE ==
[2021-04-12 12:06] LABS: BASO % 0.8 % (0.0-1.0); EOS # 0.1 10^3/uL (0.0-0.5); EOS % 2.1 % (0.0-3.0); HEMATOCRIT 32.5 % (36.0-47.0); HEMOGLOBIN 10.9 g/dl (12.0-15.5); LYMPH # 0.5 10^3/uL (1.5-5.0); LYMPH % 12.3 % (24.0-44.0); MEAN CORPUSCULAR HEMOGLOBIN 35.7 pg (27.0-33.0); MEAN CORPUSCULAR HGB CONC 33.5 g/dl (32.0-36.5); MEAN CORPUSCULAR VOLUME 106.6 fl (80.0-96.0); MONO # 0.3 10^3/uL (0.0-0.8); MONO % 7.3 % (2.0-8.0); NEUTROPHILS # 2.9 10^3/uL (1.5-8.5); NEUTROPHILS % 76.7 % (36.0-66.0); PLATELET COUNT, AUTOMATED 226 10^3/uL (150-450); RED BLOOD COUNT 3.05 10^6/uL (4.00-5.40); WHITE BLOOD COUNT 3.8 10^3/uL (4.0-10.0)
[2021-04-12 12:24] LABS: ALBUMIN 3.8 GM/DL (3.2-5.2); ALT/SGPT 53 U/L (12-78); BILIRUBIN,TOTAL 0.7 MG/DL (0.2-1.0); BLOOD UREA NITROGEN 9 MG/DL (7-18); CALCIUM LEVEL 8.6 MG/DL (8.5-10.1); CARBON DIOXIDE LEVEL 27 MEQ/L (21-32); CHLORIDE LEVEL 106 MEQ/L (98-107); CREATININE FOR GFR 0.76 MG/DL (0.55-1.30); GLOMERULAR FILTRATION RATE > 60.0 (>51); GLUCOSE, FASTING 110 MG/DL (70-100); SODIUM LEVEL 138 MEQ/L (136-145); TOTAL PROTEIN 6.9 GM/DL (6.4-8.2)
== END ==
LOC: M WUC 09:42
PROVIDERS: ATTEND Specialist
DX: C50.911 Malignant neoplasm of unspecified site of right female breast (principal)

== ENCOUNTER → 2021-04-17 | Outpatient (CLI) | payer MEDICAID, MEDICARE ==
[~2021-04-17] MED LIST changes: +ANAS1TAB2 PO; +HYDR-3490; -LEVO500T3 PO; +LEVO500T4 PO; +LOSA100T45 PO; -LOSA100T50 PO; +ONDA-84 PO; -ONDA8TAB10 PO; +PRED20TA PO; -PROC10TA4 PO; +PROC10TA5 PO; +[UNRECOGNIZED DRUG - CODE] PO
== END ==
LOC: M WHC 07:48
PROVIDERS: ATTEND Surgery
DX: R92.8 Other abnormal and inconclusive findings on diagnostic imaging of breast (principal)

== ENCOUNTER → 2021-04-26 | Outpatient (CLI) | payer MEDICARE ==
[~2021-04-26] MED LIST changes: -ANAS1TAB2 PO; -HYDR-3490; +LEVO500T3 PO; -LEVO500T4 PO; -LOSA100T45 PO; +LOSA100T50 PO; -ONDA-84 PO; +ONDA8TAB10 PO; -PRED20TA PO; +PROC10TA4 PO; -PROC10TA5 PO
[2021-04-26 11:54] LABS: BASO % 0.3 % (0.0-1.0); EOS # 0.1 10^3/uL (0.0-0.5); EOS % 2.3 % (0.0-3.0); HEMATOCRIT 32.4 % (36.0-47.0); HEMOGLOBIN 10.7 g/dl (12.0-15.5); LYMPH # 0.5 10^3/uL (1.5-5.0); LYMPH % 13.5 % (24.0-44.0); MEAN CORPUSCULAR HEMOGLOBIN 34.7 pg (27.0-33.0); MEAN CORPUSCULAR VOLUME 105.2 fl (80.0-96.0); MONO # 0.3 10^3/uL (0.0-0.8); MONO % 7.8 % (2.0-8.0); NEUTROPHILS # 2.6 10^3/uL (1.5-8.5); NEUTROPHILS % 75.5 % (36.0-66.0); PLATELET COUNT, AUTOMATED 231 10^3/uL (150-450); RED BLOOD COUNT 3.08 10^6/uL (4.00-5.40); WHITE BLOOD COUNT 3.5 10^3/uL (4.0-10.0)
[2021-04-26 12:21] LABS: ALBUMIN 3.6 GM/DL (3.2-5.2); ALT/SGPT 52 U/L (12-78); BILIRUBIN,TOTAL 0.6 MG/DL (0.2-1.0); BLOOD UREA NITROGEN 10 MG/DL (7-18); CARBON DIOXIDE LEVEL 26 MEQ/L (21-32); CHLORIDE LEVEL 108 MEQ/L (98-107); CREATININE FOR GFR 0.77 MG/DL (0.55-1.30); GLOMERULAR FILTRATION RATE > 60.0 (>51); GLUCOSE, FASTING 117 MG/DL (70-100); POTASSIUM SERUM 3.9 MEQ/L (3.5-5.1); SODIUM LEVEL 142 MEQ/L (136-145); TOTAL PROTEIN 6.5 GM/DL (6.4-8.2)
== END ==
LOC: M WUC 09:41
PROVIDERS: ATTEND Specialist
DX: C50.911 Malignant neoplasm of unspecified site of right female breast (principal)

== ENCOUNTER → 2021-04-27 | Outpatient (CLI) | payer MEDICARE ==
--- NOTE | 2021-04-27 10:45 | RADONC.CN ---
Radiation Oncology Hx/Consult Radiation Oncology Consult Date of Service: Apr 27, 2021 Pt Identifier Vandana Rodriguez is a 56 year old female with screening mammogram detected right breast cancer pT1cN0(sn)M0 ER+ [place]/HER2- Grade 3. She is s/p lumpectomy and SLNB with Dr. Scott on 11/22/20. She had a close inferior margin. She is currently s/p AC x 4 cycles and has completed 05/28 cycles of weekly taxol with Dr. Minor. She is seen today for consideration of adjuvant RT. Diagnosis/Treatment History Oncologic History 06/21/20 Screening mammogram with right breast abnormality. 07/04/20 US with density @ 6:00 posterior to nipple 09/21/20 Biopsy showing IDC ER+ (low) [place]/HER2- Grade 3 10/04/20 Oval nodule left breast 10/21/20 Left breast biopsy negative 11/22/20 Right lumpectomy and SLNB pT1cN0(sn) inferior margin <0.1 cm 12/08/20-02/14/21 AC x 4 02/23/21- Weekly taxol x 12 Breast history: Menses @ 11 Menopause @ 48 No OCP No HRT No IVF Interval History Vandana is feeling somewhat fatigued from chemotherapy, reports she has completed 12 weekly taxol cycles. She has some tingling in her fingers and toes. She has no impaired ROM in the RUE or swelling. Her appetite and weight are stable. She is in good spirits overall. Past Medical History: Back pain GERD HTN Hypothyroid MATTHIAS Past Surgical History: Back surgery 1993 D&C (miscarriage) Family History: Father skin cancer Aunt stomach cancer Social History: 24 pack year former smoker Never drinker Allergies / Meds Allergies: Coded Allergies: aspirin (Verified Allergy, Severe, anaphylaxis, 11/22/20) latex (Verified Allergy, Intermediate, skin rash, 12/12/20) bupropion (Verified Adverse Reaction, Intermediate, heart races, 12/12/20) Home Meds Active Scripts Heparin Sodium,Porcine/Pf (Heparin 500 Unit/5 ml (100/ml)) 500 Unit/5 Ml Syringe, 100 UNIT IV Q24HP, #60 SYRINGE 3 Refills Prov:BREEZY MINOR MD 02/14/21 0.9 % Sodium Chloride (Normal Saline Flush) 10 Ml Syringe, 0.9 % IV Q24HP, #60 SYRINGE 3 Refills Prov:BREEZY MINOR MD 02/14/21 Oxycodone HCl/Acetaminophen (Oxycodone-Acetaminophen 5-325) 1 Each Tablet, 1 TAB PO TIDP PRN for pain MDD 3 Tablet(s) for 5 Days, #15 TAB Prov:BREEZY MINOR MD 02/09/21 Reported Medications Sennosides (Laxative) 25 Mg Tablet, 25 MG PO, TAB 04/20/21 [taxol] No Conflict Check 03/11/21 Loratadine (Claritin) 10 Mg Capsule, 1 CAP PO DAILY for allergy symptoms for 30 Days, #30 CAP 02/09/21 Polyethylene Glycol 3350 (Miralax) 119 Gm Powder, 17 GRAM PO DAILY for constipation, #255 GRAM dissolve in water 02/09/21 Famotidine (Famotidine) 20 Mg Tablet, 20 MG PO BID, TAB 02/09/21 Pegfilgastrim (Neulasta) 6 Mg/0.6 Ml Syringe, 6 MG SC, SYRINGE 12/12/20 Doxorubicin HCl (Doxorubicin HCl) 50 Mg/25 Ml Vial, 50 MG IV ASDIRECTED, VIAL PER DOCTOR'S ORDERS FOR CHEMO 12/12/20 Tolterodine Tartrate (Tolterodine Tartrate ER) 4 Mg Cap.er.24h, 1 CAP PO QHS for 30 Days, #30 CAP 10/18/20 Losartan Potassium (Losartan Potassium) 100 Mg Tablet, 100 MG PO DAILY 10/18/20 Levothyroxine Sodium (LEVOTHYROXINE SODIUM) 112 Mcg Tablet, 112 MCG PO DAILY 10/18/20 Amitriptyline HCl (Amitriptyline HCl) 150 Mg Tablet, 150 MG PO QHS, TAB 10/18/20 Simvastatin (Simvastatin) 20 Mg Tablet, 20 MG PO QPM for 30 Days, #30 TAB 10/18/20 Nabumetone (Nabumetone) 750 Mg Tablet, 1500 MG PO QHS, TAB 10/18/20 Review of Systems Constitutional: Reports: Fatigue; Denies: Chills, Fever, Weight Loss Eyes: Denies: Pain HEENT: Denies: Head Aches Skin: Denies: Rash Pulmonary: Denies: Dyspnea, Cough Cardiovascular: Denies: Chest Pain, Palpitations Gastrointestinal: Denies: Nausea, Abdominal Pain Hematologic: Denies: Bruising, Bleeding Excessively Musculoskeletal: Denies: Neck pain, Back pain Neurological: Reports: Numbness; Denies: Weakness Psych: Reports: Mood Normal Vital Signs Wt 249 lbs T 96 P 119 RR 20 BP 131/85 O2 95% Pain 5 Fatigue 5 General Exam: Alert, Cooperative, No Acute Distress Eye Exam: PERRLA, EOMI Neck Exam: Supple Chest Exam: Clear to auscultation Heart Exam: Rate Normal, Regular Rhythm Breast Exam: Symmetric Bilaterally, Skin Changes (Inferior right periareolar incision, well-healed and hidden); Negative: Lumps or Masses, Nipple Retraction, Nipple Discharge Abdomen Exam: Soft; Negative: Tenderness Extremity Exam: Negative: Edema Skin Exam: Nl turgor and temperature Neuro Exam: Normal Gait, Normal Speech, Cranial Nerves 3-12 NL Psych Exam: Mental status NL Diagnostic and Laboratory Diagnostic Review Radiologic images, relevant labs and pathology reports were personally reviewed and discussed with Ms. Rodriguez. Assessment and Plan Impression Ms. Rodriguez is a 56 year old female screening mammogram detected right breast cancer pT1cN0(sn)M0 ER+ [place]/HER2- Grade 3. She is s/p lumpectomy and SLNB with Dr. Scott on 11/22/20. She had a close inferior margin. She is currently s/p AC x 4 cycles and has completed 9/12 cycles of weekly taxol with Dr. Minor. She is seen today for consideration of adjuvant RT. Stage Right central breast cancer pT1cN0(sn)M0 ER+ (low) [place]/HER2- Grade 3 stage IA Performance Status ECOG 0 Plan We had an extensive discussion with Ms. Rodriguez regarding the diagnosis at hand and available therapeutic options. Vandana has an early stage right breast cancer which was excised completely albeit with a close inferior margin. Her pathology suggested a higher grade disease and so she underwent adjuvant chemotherapy with Dr. Minor which is anticipated to finish by the end of April 2021. I recommended that thereafter starting at the end of May 2021 we proceed with adjuvant WBI+tumor bed boost. In her case based on her anatomy I think standard supine treatment would be advantageous, and I would give 40 Gy in 15 fractions WBI + 10 Gy in 5 fractions to the tumor bed. She agrees with this plan. We discussed the logistics of receiving radiation therapy in detail including the need for a 1-time planning session. This can occur in mid-May. We reviewed the side effects of treatment including fatigue, skin reaction, pigmentation changes and late fibrosis. After discussing the risks, benefits and alternatives to radiation therapy, Ms. Rodriguez was amenable to pursuing radiotherapy. All questions were answered to the patient's satisfaction. We instructed the patient that if there were any questions,concerns or changes in clinical status in the interim to contact us. Recommendations Adjuvant right breast RT 40 Gy in 15 fractions WBI + 10 Gy in 5 fraction tumor bed boost Simulation in mid-May 2021 Billing Statement Total time of [46] minutes was spent preparing for the visit [2], obtaining HPI [8], examining the patient [4], reviewing diagnostic tests [5], discussing management options [18], coordinating care [2], and writing this note [7]. KAMARI LIANG MD Apr 27, 2021 10:45
== END ==
LOC: M ONCR 08:39
PROVIDERS: ATTEND General Practice
DX: C50.911 Malignant neoplasm of unspecified site of right female breast (principal); E03.9 Hypothyroidism, unspecified; I10 Essential (primary) hypertension; G47.33 Obstructive sleep apnea (adult) (pediatric); Z79.890 Hormone replacement therapy; Z79.899 Other long term (current) drug therapy; Z88.6 Allergy status to analgesic agent; Z91.040 Latex allergy status; Z92.21 Personal history of antineoplastic chemotherapy

== ENCOUNTER → 2021-05-03 | Outpatient (CLI) | payer MEDICARE ==
[2021-05-03 12:11] LABS: BASO % 0.5 % (0.0-1.0); EOS # 0.1 10^3/uL (0.0-0.5); EOS % 2.2 % (0.0-3.0); HEMATOCRIT 33.5 % (36.0-47.0); HEMOGLOBIN 10.9 g/dl (12.0-15.5); LYMPH # 0.5 10^3/uL (1.5-5.0); LYMPH % 12.1 % (24.0-44.0); MEAN CORPUSCULAR HEMOGLOBIN 34.3 pg (27.0-33.0); MEAN CORPUSCULAR HGB CONC 32.5 g/dl (32.0-36.5); MEAN CORPUSCULAR VOLUME 105.3 fl (80.0-96.0); MONO # 0.3 10^3/uL (0.0-0.8); MONO % 7.1 % (2.0-8.0); NEUTROPHILS # 3.1 10^3/uL (1.5-8.5); NEUTROPHILS % 77.4 % (36.0-66.0); PLATELET COUNT, AUTOMATED 244 10^3/uL (150-450); RED BLOOD COUNT 3.18 10^6/uL (4.00-5.40); WHITE BLOOD COUNT 4.1 10^3/uL (4.0-10.0)
[2021-05-03 12:33] LABS: ALBUMIN 3.4 GM/DL (3.2-5.2); ALT/SGPT 47 U/L (12-78); BILIRUBIN,TOTAL 0.6 MG/DL (0.2-1.0); BLOOD UREA NITROGEN 13 MG/DL (7-18); CALCIUM LEVEL 8.7 MG/DL (8.5-10.1); CARBON DIOXIDE LEVEL 25 MEQ/L (21-32); CHLORIDE LEVEL 107 MEQ/L (98-107); CREATININE FOR GFR 0.82 MG/DL (0.55-1.30); GLOMERULAR FILTRATION RATE > 60.0 (>51); GLUCOSE, FASTING 132 MG/DL (70-100); POTASSIUM SERUM 3.8 MEQ/L (3.5-5.1); SODIUM LEVEL 141 MEQ/L (136-145); TOTAL PROTEIN 6.4 GM/DL (6.4-8.2)
== END ==
LOC: M WUC 09:25
PROVIDERS: ATTEND Specialist
DX: C50.911 Malignant neoplasm of unspecified site of right female breast (principal)

== ENCOUNTER → 2021-05-10 | Outpatient (CLI) | payer MEDICARE ==
[2021-05-10 09:42] LABS: BASO % 0.5 % (0.0-1.0); EOS # 0.1 10^3/uL (0.0-0.5); EOS % 2.3 % (0.0-3.0); HEMATOCRIT 33.4 % (36.0-47.0); HEMOGLOBIN 11.1 g/dl (12.0-15.5); LYMPH # 0.5 10^3/uL (1.5-5.0); LYMPH % 11.7 % (24.0-44.0); MEAN CORPUSCULAR HEMOGLOBIN 34.6 pg (27.0-33.0); MEAN CORPUSCULAR HGB CONC 33.2 g/dl (32.0-36.5); MONO # 0.3 10^3/uL (0.0-0.8); MONO % 6.3 % (2.0-8.0); NEUTROPHILS # 3.1 10^3/uL (1.5-8.5); NEUTROPHILS % 78.4 % (36.0-66.0); PLATELET COUNT, AUTOMATED 238 10^3/uL (150-450); RED BLOOD COUNT 3.21 10^6/uL (4.00-5.40); WHITE BLOOD COUNT 3.9 10^3/uL (4.0-10.0)
[2021-05-10 10:11] LABS: ALBUMIN 3.3 GM/DL (3.2-5.2); ALT/SGPT 46 U/L (12-78); BILIRUBIN,TOTAL 0.6 MG/DL (0.2-1.0); BLOOD UREA NITROGEN 8 MG/DL (7-18); CALCIUM LEVEL 8.4 MG/DL (8.5-10.1); CARBON DIOXIDE LEVEL 24 MEQ/L (21-32); CHLORIDE LEVEL 109 MEQ/L (98-107); CREATININE FOR GFR 0.76 MG/DL (0.55-1.30); GLOMERULAR FILTRATION RATE > 60.0 (>51); GLUCOSE, FASTING 139 MG/DL (70-100); POTASSIUM SERUM 3.8 MEQ/L (3.5-5.1); SODIUM LEVEL 140 MEQ/L (136-145); TOTAL PROTEIN 6.5 GM/DL (6.4-8.2)
== END ==
LOC: M WUC 08:31
PROVIDERS: ATTEND Specialist
DX: C50.911 Malignant neoplasm of unspecified site of right female breast (principal)

== ENCOUNTER → 2021-05-25 | Outpatient (CLI) | payer MEDICARE ==
--- NOTE | 2021-05-25 15:43 | REP ---
INDICATION: PAIN, SWELLING COMPARISON: None. TECHNIQUE: Real time compression and duplex Doppler interrogation of the right lower extremity deep venous system is performed, including the left common femoral vein.Compression of the right peroneal and posterior tibial veins is performed. FINDINGS: The right common femoral, superficial femoral and popliteal veins are fully compressible with transducer pressure and demonstrate normal spontaneous and phasic flow, without evidence of deep venous thrombosis.The left common femoral vein demonstrates no thrombus.The right peroneal and posterior tibial veins could not be visualized due to body habitus. IMPRESSION: No evidence of deep venous thrombosis of the right lower extremity femoral popliteal venous system. <Electronically signed by Joseph Alba > 05/25/21 [id number]
== END ==
LOC: M RAD 15:07
PROVIDERS: ATTEND Specialist
DX: M79.604 Pain in right leg (principal); C50.919 Malignant neoplasm of unspecified site of unspecified female breast

== ENCOUNTER 2021-06-05 10:13 | Outpatient (RCR) | payer MEDICARE ==
[2021-06-09] MEDS ORDERED: HYDR-3490 (09:31)
[2021-06-09] MEDS ORDERED: ANAS1TAB2 PO (09:52)
== END 2021-06-15 ==
LOC: M ONCR 10:13
PROVIDERS: ATTEND General Practice
DX: C50.111 Malignant neoplasm of central portion of right female breast (principal)

== ENCOUNTER → 2021-06-07 | Outpatient (CLI) | payer MEDICARE ==
--- NOTE | 2021-06-07 13:21 | DEXAMM ---
INDICATION: BREAST CA/ON ARIMIDEX THERAPY. COMPARISON: None. TECHNIQUE: Bone density was measured using dual-energy x-ray absorptionmetry (DEXA). FINDINGS: AP SPINE L1-L4 BMD 1.249 g/cm2 Young Adult T-Score 0.4 Age Matched Z-Score 1.5. LT FEMUR, TOTAL BMD 0.967 g/cm2 Young Adult T-Score -0.3 Age Matched Z-Score 0.5. LT NECK BMD 0.945 g/cm2 Young Adult T-Score -0.7 Age Matched Z-Score 0.5. RT FEMUR, TOTAL BMD 1.038 g/cm2 Young Adult T-Score 0.2 Age Matched Z-Score 1.1. RT NECK BMD 0.966 g/cm2 Young Adult T-Score -0.5 Age Matched Z-Score 0.6. IMPRESSION: There is normal bone density of the spine. There is normal bone density of the left hip. There is normal bone density of the right hip. FOLLOW-UP: Recommendation for the next bone density exam: 5-10 years. <Electronically signed by Pete Clancy > 06/07/21 [id number]
== END ==
LOC: M WHC 12:28
PROVIDERS: ATTEND Specialist
DX: Z13.820 Encounter for screening for osteoporosis (principal); C50.919 Malignant neoplasm of unspecified site of unspecified female breast; Z79.811 Long term (current) use of aromatase inhibitors

== ENCOUNTER → 2021-07-11 | Outpatient (REF) | payer MEDICARE ==
[~2021-07-11] MED LIST changes: +ANAS1TAB2 PO; +HYDR-3490; +PRED20TA PO
[2021-07-12 09:15] LABS: APPEARANCE, URINE CLOUDY (CLEAR); BACTERIA, URINE AUTO NEGATIVE (NEGATIVE); BILIRUBIN, URINE AUTO NEGATIVE (NEGATIVE); BLOOD, URINE BLOOD NEGATIVE (NEGATIVE); CALCIUM OXALATE CRYSTALS LARGE; COLOR, URINE YELLOW (YELLOW); GLUCOSE, URINE (UA) AUTO NEGATIVE (NEGATIVE); KETONE, URINE AUTO NEGATIVE (NEGATIVE); LEUKOCYTE ESTERASE, URINE AUTO 3+ (NEGATIVE); NITRITE, URINE AUTO NEGATIVE (NEGATIVE); PROTEIN, URINE AUTO NEGATIVE (NEGATIVE); RBC, URINE AUTO 4 /HPF (0-3); SPECIFIC GRAVITY URINE AUTO 1.013 (1.002-1.035); SQUAMOUS EPITHELIAL CELL UR AU 1 /HPF (0-6); UROBILINOGEN, URINE AUTO 0.2 mg/dL (0.0-2.0); WBC, URINE AUTO 129 /HPF (0-3)
== END ==
LOC: M LAB REF 13:00
PROVIDERS: ATTEND General Practice
DX: C50.111 Malignant neoplasm of central portion of right female breast (principal)

== ENCOUNTER 2021-07-14 13:48 | Outpatient (RCR) | payer MEDICARE ==
[2021-07-18] MEDS ORDERED: ANAS1TAB2 PO (08:32)
== END 2021-07-16 ==
LOC: M ONCR 13:48
PROVIDERS: ATTEND General Practice
DX: C50.111 Malignant neoplasm of central portion of right female breast (principal)

== ENCOUNTER → 2021-07-27 | Outpatient (CLI) | payer MEDICARE ==
--- NOTE | 2021-07-27 11:25 | REP ---
INDICATION: LEFT HIP PAIN. COMPARISON: None TECHNIQUE: AP and frog-lateral views FINDINGS: The hip joint space is symmetric and well maintained. There is no fracture or destructive osseous lesion. There is no buttressing or prominent marginal osteophytosis. There is an incidental synovial herniation pit on the femoral neck. IMPRESSION: Within normal limits <Electronically signed by Javi Arciniega > 07/27/21 [id number]
--- NOTE | 2021-07-27 11:25 | REP ---
INDICATION: LEFT HIP PAIN. COMPARISON: None. TECHNIQUE: A single AP view of the pelvis was performed. FINDINGS: The hip joint spaces are symmetric and relatively well maintained. There is no acute fracture or destructive osseous lesion. IMPRESSION: Within normal limits <Electronically signed by Javi Arciniega > 07/27/21 1125
== END ==
LOC: M ADAMS 10:44
PROVIDERS: ATTEND Family Medicine
DX: M25.552 Pain in left hip (principal); R35.0 Frequency of micturition
CPT/HCPCS: 72170; 73502; 80048; 81001; 87088; G0463

== ENCOUNTER → 2021-07-27 | Outpatient (REF) | payer MEDICARE ==
[2021-07-27 14:33] LABS: APPEARANCE, URINE HAZY (CLEAR); BACTERIA, URINE AUTO NEGATIVE (NEGATIVE); BILIRUBIN, URINE AUTO NEGATIVE (NEGATIVE); BLOOD, URINE BLOOD NEGATIVE (NEGATIVE); COLOR, URINE YELLOW (YELLOW); GLUCOSE, URINE (UA) AUTO NEGATIVE (NEGATIVE); KETONE, URINE AUTO NEGATIVE (NEGATIVE); LEUKOCYTE ESTERASE, URINE AUTO 3+ (NEGATIVE); NITRITE, URINE AUTO NEGATIVE (NEGATIVE); PROTEIN, URINE AUTO NEGATIVE (NEGATIVE); RBC, URINE AUTO 0 /HPF (0-3); SPECIFIC GRAVITY URINE AUTO 1.005 (1.002-1.035); SQUAMOUS EPITHELIAL CELL UR AU 1 /HPF (0-6); UROBILINOGEN, URINE AUTO 0.2 mg/dL (0.0-2.0); WBC, URINE AUTO 57 /HPF (0-3)
[2021-07-27 16:17] LABS: BLOOD UREA NITROGEN 10 MG/DL (7-18); CALCIUM LEVEL 9.6 MG/DL (8.5-10.1); CARBON DIOXIDE LEVEL 29 MEQ/L (21-32); CHLORIDE LEVEL 103 MEQ/L (98-107); CREATININE FOR GFR 0.82 MG/DL (0.55-1.30); GLOMERULAR FILTRATION RATE > 60.0 (>51); GLUCOSE, FASTING 91 MG/DL (70-100); POTASSIUM SERUM 4.3 MEQ/L (3.5-5.1); SODIUM LEVEL 139 MEQ/L (136-145)
== END ==
LOC: M SFHCADAM 10:36
PROVIDERS: ATTEND Family Medicine
DX: R35.0 Frequency of micturition (principal)

== ENCOUNTER → 2021-09-22 | Outpatient (CLI) | payer MEDICARE ==
[~2021-09-22] MED LIST changes: -LEVO500T3 PO; +LEVO500T4 PO; +LOSA100T45 PO; -LOSA100T50 PO; +ONDA-84 PO; -ONDA8TAB10 PO; -PROC10TA4 PO; +PROC10TA5 PO
== END ==
LOC: M WHC 10:33
PROVIDERS: ATTEND Surgery
DX: Z12.31 Encounter for screening mammogram for malignant neoplasm of breast (principal); Z92.21 Personal history of antineoplastic chemotherapy; Z85.3 Personal history of malignant neoplasm of breast
CPT/HCPCS: 77066; G0279

== ENCOUNTER → 2021-12-13 | Outpatient (REF) | payer MEDICARE ==
[2021-12-13 12:49] LABS: AMORPHOUS SEDIMENT SMALL (NEGATIVE); APPEARANCE, URINE HAZY (CLEAR); BACTERIA, URINE AUTO 1+ (NEGATIVE); BILIRUBIN, URINE AUTO NEGATIVE (NEGATIVE); BLOOD, URINE BLOOD NEGATIVE (NEGATIVE); COLOR, URINE YELLOW (YELLOW); GLUCOSE, URINE (UA) AUTO NEGATIVE (NEGATIVE); KETONE, URINE AUTO NEGATIVE (NEGATIVE); LEUKOCYTE ESTERASE, URINE AUTO 1+ (NEGATIVE); NITRITE, URINE AUTO NEGATIVE (NEGATIVE); PROTEIN, URINE AUTO NEGATIVE (NEGATIVE); RBC, URINE AUTO 1 /HPF (0-3); SPECIFIC GRAVITY URINE AUTO 1.004 (1.002-1.035); SQUAMOUS EPITHELIAL CELL UR AU 1 /HPF (0-6); UROBILINOGEN, URINE AUTO 0.2 mg/dL (0.0-2.0); WBC, URINE AUTO 8 /HPF (0-3)
[2021-12-13 13:58] LABS: ALBUMIN 3.8 GM/DL (3.2-5.2); ALT/SGPT 37 U/L (12-78); BLOOD UREA NITROGEN 16 MG/DL (7-18); CALCIUM LEVEL 9.3 MG/DL (8.5-10.1); CARBON DIOXIDE LEVEL 29 MEQ/L (21-32); CHLORIDE LEVEL 105 MEQ/L (98-107); CREATININE FOR GFR 0.92 MG/DL (0.55-1.30); FREE T4 1.36 NG/DL (0.76-1.46); GLOMERULAR FILTRATION RATE > 60.0 (>51); GLUCOSE, FASTING 87 MG/DL (70-100); POTASSIUM SERUM 3.8 MEQ/L (3.5-5.1); SODIUM LEVEL 140 MEQ/L (136-145); TOTAL PROTEIN 7.4 GM/DL (6.4-8.2)
== END ==
LOC: M SFHCADAM 09:29
PROVIDERS: ATTEND Family Medicine
DX: R30.0 Dysuria (principal); R42 Dizziness and giddiness; I10 Essential (primary) hypertension

== ENCOUNTER → 2022-01-03 | Outpatient (CLI) | payer MEDICARE | LOC: M ONCR 13:12 | PROVIDERS: ATTEND Radiology Radiation Oncology | DX: C50.111 Malignant neoplasm of central portion of right female breast (principal); L76.34 Postprocedural seroma of skin and subcutaneous tissue following other procedure; Z88.6 Allergy status to analgesic agent; Z91.040 Latex allergy status; Z92.3 Personal history of irradiation ==

== ENCOUNTER → 2022-01-31 | Outpatient (REF) | payer MEDICARE ==
[~2022-01-31] MED LIST changes: +SENO8.6T5 PO
== END ==
LOC: M SFHCADAM 16:24
PROVIDERS: ATTEND Physician Assistant
DX: R05.9 Cough, unspecified (principal)

== ENCOUNTER → 2022-05-02 | Outpatient (CLI) | payer MEDICARE ==
[~2022-05-02] MED LIST changes: +HEPA100I11 IV; -HEPAINJ10 IV; +LEVO1TAB39 PO; -LEVO500T4 PO; +NORM0.9I21 IV; -NORM0.9I9 IV
[2022-05-02 10:36] LABS: THYROID STIMULATING HORMONE 1.19 uIU/ML (0.358-3.740)
== END ==
LOC: M WUC 08:23
PROVIDERS: ATTEND Internal Medicine Cardiovascular Disease
DX: E03.9 Hypothyroidism, unspecified (principal); E78.5 Hyperlipidemia, unspecified

== ENCOUNTER → 2022-05-28 | Outpatient (CLI) | payer MEDICARE | LOC: M CARPUL 11:57 | PROVIDERS: ATTEND Internal Medicine Cardiovascular Disease | DX: R00.0 Tachycardia, unspecified (principal) ==

== ENCOUNTER → 2022-07-02 | Outpatient (REF) | payer MEDICARE | LOC: M SFHCPLAZ 15:15 | PROVIDERS: ATTEND Physician Assistant | DX: R10.9 Unspecified abdominal pain (principal) ==

== ENCOUNTER → 2022-07-11 | Outpatient (CLI) | payer MEDICARE | LOC: M ONCR 14:17 | PROVIDERS: ATTEND General Practice | DX: C50.111 Malignant neoplasm of central portion of right female breast (principal); M25.511 Pain in right shoulder; Z92.3 Personal history of irradiation; Z92.21 Personal history of antineoplastic chemotherapy; Z88.6 Allergy status to analgesic agent; Z88.8 Allergy status to other drugs, medicaments and biological substances; Z91.040 Latex allergy status; Z79.899 Other long term (current) drug therapy; Z79.891 Long term (current) use of opiate analgesic ==

== ENCOUNTER → 2022-08-23 | Outpatient (REF) | payer MEDICARE | LOC: M SFHCWAGY 13:33 | PROVIDERS: ATTEND Obstetrics & Gynecology | DX: Z12.4 Encounter for screening for malignant neoplasm of cervix (principal) | CPT/HCPCS: 87624; G0123 ==

== ENCOUNTER → 2022-09-14 | Outpatient (REF) | payer MEDICARE ==
[2022-09-14 17:15] LABS: BASO % 0.4 % (0.0-1.0); EOS # 0.2 10^3/uL (0.0-0.5); EOS % 2.4 % (0.0-3.0); HEMATOCRIT 42.3 % (36.0-47.0); HEMOGLOBIN 14.5 g/dl (12.0-15.5); LYMPH # 1.2 10^3/uL (1.5-5.0); LYMPH % 14.8 % (24.0-44.0); MEAN CORPUSCULAR HEMOGLOBIN 33.6 pg (27.0-33.0); MEAN CORPUSCULAR HGB CONC 34.3 g/dl (32.0-36.5); MEAN CORPUSCULAR VOLUME 97.9 fl (80.0-96.0); MONO # 0.6 10^3/uL (0.0-0.8); MONO % 7.2 % (2.0-8.0); NEUTROPHILS # 5.9 10^3/uL (1.5-8.5); NEUTROPHILS % 74.9 % (36.0-66.0); PLATELET COUNT, AUTOMATED 228 10^3/uL (150-450); RED BLOOD COUNT 4.32 10^6/uL (4.00-5.40); WHITE BLOOD COUNT 7.8 10^3/uL (4.0-10.0)
[2022-09-14 17:34] LABS: THYROID STIMULATING HORMONE 1.849 uIU/ML (0.55-4.78)
[2022-09-14 17:36] LABS: ALBUMIN 3.9 G/DL (3.2-5.2); ALKALINE PHOSPHATASE 99 U/L (46-116); ALT/SGPT 27 U/L (7.0-40); AST/SGOT 25 U/L (<34); BILIRUBIN,TOTAL 0.4 MG/DL (0.3-1.2); BLOOD UREA NITROGEN 12 MG/DL (9-23); CALCIUM LEVEL 9.6 MG/DL (8.5-10.1); CARBON DIOXIDE LEVEL 25 MMOL/L (20-31); CHLORIDE LEVEL 103 MMOL/L (98-107); CREATININE FOR GFR 0.81 MG/DL (0.55-1.30); FREE T4 1.36 NG/DL (0.89-1.76); GLOMERULAR FILTRATION RATE > 60.0 (>51); GLUCOSE, FASTING 91 MG/DL (60-100); POTASSIUM SERUM 3.8 MMOL/L (3.5-5.1); SODIUM LEVEL 141 MMOL/L (136-145); TOTAL PROTEIN 7.3 G/DL (5.7-8.2)
== END ==
LOC: M SFHCADAM 13:54
PROVIDERS: ATTEND Family Medicine
DX: Z01.818 Encounter for other preprocedural examination (principal); Z79.899 Other long term (current) drug therapy

== ENCOUNTER → 2022-09-14 | Outpatient (CLI) | payer MEDICARE ==
[~2022-09-14] MED LIST changes: +VITMTA PO
== END ==
LOC: M ADAMS 13:58
PROVIDERS: ATTEND Family Medicine
DX: Z01.818 Encounter for other preprocedural examination (principal)

== ENCOUNTER → 2022-09-18 | Outpatient (CLI) | payer MEDICARE | LOC: M WHC 10:39 | PROVIDERS: ATTEND Surgery | DX: Z12.31 Encounter for screening mammogram for malignant neoplasm of breast (principal); Z85.3 Personal history of malignant neoplasm of breast | CPT/HCPCS: 77066; G0279 ==

== ENCOUNTER → 2022-09-20 | Outpatient (CLI) | payer MEDICARE | LOC: M LABSMTC 09:13 | PROVIDERS: ATTEND Anesthesiology | DX: Z01.812 Encounter for preprocedural laboratory examination (principal); Z20.822 Contact with and (suspected) exposure to COVID-19 ==

== ENCOUNTER 2022-09-25 08:48 | Observation (INO) | payer MEDICARE ==
[~2022-09-25] VITALS: Ht 172.7 cm; Wt 105.6 kg
[~2022-09-25 08:48] MED LIST changes: +HEPARIN SOD (PORCINE) 5000UNITS/ML 1ML VIAL/SYRINGE SQ ONE; +LIDOCAINE 2% 100MG/5ML SDV (FOR ANES.) As Ordered ONE; +MIDAZOLAM INJ 2MG/2ML VIAL As Ordered ONE; +ONDANSETRON 4MG 2ML VIAL As Ordered ONE; +ROCURONIUM BROMIDE 50MG/5ML VIAL As Ordered ONE; +ceFAZolin SOD 2 GM in IV 1 EA IV ONE; +fentaNYL 250 MCG/5 ML INJECTION As Ordered ONE; +propofoL 200 MG/20 ML VIAL As Ordered ONE
[2022-09-25] MEDS ORDERED: LR 1,000 ML IV SCH ×2 (09:00→15:05)
[2022-09-25] MEDS ORDERED: TOLT2TAB12 PO (09:57)
[2022-09-25] MEDS ORDERED: HOME MED LIST COMPLETE! XX SCH (10:00)
[2022-09-25] MEDS ORDERED: SCOPOLAMINE 1MG TRANSDERMAL PATCH TOP ONE (10:15)
[2022-09-25] MEDS ORDERED: BUPIVACAINE LIPOSOME/PF 1.3% 20ML VIAL (13.3MG/ML)(EXPAREL) As Ordered ONE (10:17)
[2022-09-25] MEDS ORDERED: BUPIVACAINE HCL 0.25% 10ML VIAL As Ordered ONE (10:17)
[2022-09-25] MEDS ORDERED: GENTAMICIN SULF 80MG/2ML VIAL As Ordered ONE (10:17)
[2022-09-25] MEDS ORDERED: SEVOFLURANE INHAL SOLN 250 ML BTL As Ordered ONE (10:34)
[2022-09-25] MEDS ORDERED: EPINEPHrine INJ 1 MG/ML 1ML AMP As Ordered ONE (11:09)
[2022-09-25] MEDS ORDERED: LIDOCAINE 1% MDV 20ML VIAL As Ordered ONE (11:09)
[2022-09-25] MEDS ORDERED: PHENYLephrine 500MCG 5ML (100MCG/ML) SYRINGE As Ordered ONE ×2 (11:30→13:14)
[2022-09-25] MEDS ORDERED: ACETAMINOPHEN 1000MG 100ML IV BAG As Ordered ONE (11:32)
[2022-09-25] MEDS ORDERED: LIDOCAINE 5% OINT 30GM TUBE As Ordered ONE (11:56)
[2022-09-25] MEDS ORDERED: diphenhydrAMINE 50MG/ML VIAL As Ordered ONE (12:07)
[2022-09-25] MEDS ORDERED: HYDROmorphone HCL 2MG/ML 1ML VIAL As Ordered ONE (12:07)
[2022-09-25] MEDS ORDERED: SUGAMMADEX SODIUM 500 MG/5 ML VIAL (BRIDION) As Ordered ONE (12:07)
[2022-09-25] MEDS ORDERED: ePHEDrine SULFATE 25 MG/5 ML(5MG/ML) SYRINGE As Ordered ONE ×2 (12:54→14:09)
[2022-09-25] MEDS ORDERED: PHENYLEPHRINE 10MG/ML 1ML VIAL As Ordered ONE (14:09)
[2022-09-25] MEDS ORDERED: ONDANSETRON 4MG 2ML VIAL IV PRN ×2 (15:05→15:20)
[2022-09-25] MEDS ORDERED: HYDROMORPHONE HCL 0.5 MG/ 0.5 ML SYRINGE IV PRN (15:05)
[2022-09-25] MEDS ORDERED: METOCLOPRAMIDE INJ 10MG/2ML VIAL IV PRN (15:05)
[2022-09-25] MEDS ORDERED: fentaNYL 100 MCG/2 ML INJECTION IV PRN (15:05)
[2022-09-25] MEDS ORDERED: oxyCODONE 5MG TAB PO PRN (15:05)
[2022-09-25] MEDS ORDERED: traMADol 50 MG TAB PO PRN (15:20)
[2022-09-25] MEDS ORDERED: ACETAMINOPHEN TAB 650MG DOSE (2X325MG) PO PRN (15:20)
[2022-09-25] MEDS ORDERED: ceFAZolin SOD 2 GM in IV 1 EA IV ONE (16:00)
[2022-09-25 17:00] VITALS: BP 145/84
[2022-09-25] MEDS: LR 1,000 ML IV SCH (17:12)
[2022-09-25 17:30] VITALS: BP 130/76
[2022-09-25 18:00] VITALS: BP 128/78
[2022-09-25 19:59] VITALS: BP 126/76
[2022-09-25] MEDS ORDERED: SIMVASTATIN 20 MG TAB PO SCH (21:00)
[2022-09-25] MEDS: FAMOTIDINE 20 MG TAB PO SCH (21:01)
[2022-09-25] MEDS: PERCOCET 5MG/325MG TAB PO PRN (21:02)
[2022-09-25 21:14] VITALS: BP 126/77
[2022-09-25 22:38] VITALS: BP 109/61
[2022-09-26 02:23] VITALS: BP 113/61
[2022-09-26] MEDS: PERCOCET 5MG/325MG TAB PO PRN ×2 (04:10→10:53)
[2022-09-26] MEDS ORDERED: LEVOTHYROXINE 112MCG TABLET (0.112MG) PO SCH (06:00)
[2022-09-26 06:27] VITALS: BP 112/65
[2022-09-26] MEDS: LR 1,000 ML IV SCH (06:27)
[2022-09-26] MEDS ORDERED: LOSARTAN 50MG TABLET PO SCH (09:00)
[2022-09-26] MEDS ORDERED: PERCOCET PO (09:05)
[2022-09-26 09:35] VITALS: BP 129/69
[2022-09-26] MEDS: FAMOTIDINE 20 MG TAB PO SCH (09:35)
[2022-09-26 10:00] VITALS: BP 126/70
== END 2022-09-26 13:05 | disposition home or self-care (01) ==
LOC: M SDC 08:48 → M MS5PR 08:49
PROVIDERS: ADMIT Plastic Surgery Surgery of the Hand; ATTEND Plastic Surgery Surgery of the Hand
DX: C50.911 Malignant neoplasm of unspecified site of right female breast (principal); N64.81 Ptosis of breast; N64.89 Other specified disorders of breast; I10 Essential (primary) hypertension; E78.00 Pure hypercholesterolemia, unspecified; E03.9 Hypothyroidism, unspecified; F41.9 Anxiety disorder, unspecified; F32.A Depression, unspecified; Z87.891 Personal history of nicotine dependence; Z79.899 Other long term (current) drug therapy; Z91.040 Latex allergy status; Z88.8 Allergy status to other drugs, medicaments and biological substances; G47.33 Obstructive sleep apnea (adult) (pediatric)
CPT/HCPCS: 19316; 19318; 87070; 87075; 88300; 88302; 88305; 96365; C9290; G0378; J1100; J2370; J2405

== ENCOUNTER → 2022-12-12 | Outpatient (REF) | payer MEDICARE ==
[~2022-12-12] MED LIST changes: -HEPARIN SOD (PORCINE) 5000UNITS/ML 1ML VIAL/SYRINGE SQ ONE; -LIDOCAINE 2% 100MG/5ML SDV (FOR ANES.) As Ordered ONE; -MIDAZOLAM INJ 2MG/2ML VIAL As Ordered ONE; -ONDANSETRON 4MG 2ML VIAL As Ordered ONE; +PERCOCET PO; -ROCURONIUM BROMIDE 50MG/5ML VIAL As Ordered ONE; +TOLT2TAB12 PO; -ceFAZolin SOD 2 GM in IV 1 EA IV ONE; -fentaNYL 250 MCG/5 ML INJECTION As Ordered ONE; -propofoL 200 MG/20 ML VIAL As Ordered ONE
== END ==
LOC: M LAB REF 16:33
PROVIDERS: ATTEND Physician Assistant
DX: S21.001A Unspecified open wound of right breast, initial encounter (principal); X58.XXXA Exposure to other specified factors, initial encounter; Y92.9 Unspecified place or not applicable; Y93.9 Activity, unspecified; Y99.9 Unspecified external cause status

== ENCOUNTER → 2023-07-12 | Outpatient (CLI) | payer MEDICARE ==
[~2023-07-12] MED LIST changes: -HEPA100I11 IV; +HEPAINJ5 IV; -LIDO1CRE42 TOP; +LIDO30CR18 TOP; -LOSA100T45 PO; +LOSA100T46 PO
== END ==
LOC: M ONCR 14:12
PROVIDERS: ATTEND General Practice
DX: Z08 Encounter for follow-up examination after completed treatment for malignant neoplasm (principal); Z85.3 Personal history of malignant neoplasm of breast; Z71.2 Person consulting for explanation of examination or test findings; Z79.811 Long term (current) use of aromatase inhibitors; Z79.899 Other long term (current) drug therapy; Z88.6 Allergy status to analgesic agent; Z88.8 Allergy status to other drugs, medicaments and biological substances; Z91.040 Latex allergy status; Z92.21 Personal history of antineoplastic chemotherapy; Z92.3 Personal history of irradiation; Z98.890 Other specified postprocedural states

== ENCOUNTER → 2023-07-24 | Outpatient (REF) | payer MEDICARE | LOC: M LAB REF 18:07 | PROVIDERS: ATTEND Plastic Surgery Surgery of the Hand | DX: Z85.3 Personal history of malignant neoplasm of breast (principal); N64.59 Other signs and symptoms in breast; N60.31 Fibrosclerosis of right breast ==

== ENCOUNTER → 2023-08-28 | Outpatient (REF) | payer MEDICARE ==
[~2023-08-28] MED LIST changes: +SULF1TAB23 PO; +VITA100093 PO
[2023-08-28 15:20] LABS: APPEARANCE, URINE HAZY (CLEAR); BACTERIA, URINE AUTO 1+ (NEGATIVE); BILIRUBIN, URINE AUTO NEGATIVE (NEGATIVE); BLOOD, URINE BLOOD 1+ (NEGATIVE); COLOR, URINE YELLOW (YELLOW); GLUCOSE, URINE (UA) AUTO NEGATIVE (NEGATIVE); KETONE, URINE AUTO NEGATIVE (NEGATIVE); LEUKOCYTE ESTERASE, URINE AUTO 3+ (NEGATIVE); NITRITE, URINE AUTO NEGATIVE (NEGATIVE); PROTEIN, URINE AUTO NEGATIVE (NEGATIVE); RBC, URINE AUTO 1 /HPF (0-3); SPECIFIC GRAVITY URINE AUTO 1.005 (1.002-1.035); SQUAMOUS EPITHELIAL CELL UR AU 0 /HPF (0-6); UROBILINOGEN, URINE AUTO 0.2 mg/dL (0.0-2.0); WBC, URINE AUTO 99 /HPF (0-3)
== END ==
LOC: M SFHCADAM 13:18
PROVIDERS: ATTEND Family Medicine
DX: Z87.440 Personal history of urinary (tract) infections (principal); Z79.899 Other long term (current) drug therapy

== ENCOUNTER 2023-09-12 16:16 | Emergency (ER) | payer MEDICARE ==
[~2023-09-12] VITALS: Ht 172.7 cm; Wt 110.5 kg
[2023-09-12] MEDS ORDERED: NITR100C2 (16:25)
[2023-09-12] MEDS ORDERED: PROL60SO SC (16:25)
[2023-09-12] MEDS ORDERED: ACETAMINOPHEN 500 MG TAB PO ONE (18:10)
[2023-09-12] MEDS ORDERED: METH-1164 PO (19:07)
[2023-09-12 19:16] VITALS: BP 154/93; TEMP 98.2; O2SAT 96
== END 2023-09-12 19:19 | disposition home or self-care (01) ==
LOC: M ED 16:16
DX: M79.604 Pain in right leg (principal); E78.5 Hyperlipidemia, unspecified; I10 Essential (primary) hypertension; G43.909 Migraine, unspecified, not intractable, without status migrainosus; J45.909 Unspecified asthma, uncomplicated; K21.9 Gastro-esophageal reflux disease without esophagitis; E03.9 Hypothyroidism, unspecified; Z91.040 Latex allergy status; Z88.6 Allergy status to analgesic agent; Z79.811 Long term (current) use of aromatase inhibitors; Z79.810 Long term (current) use of selective estrogen receptor modulators (SERMs); Z79.899 Other long term (current) drug therapy

== ENCOUNTER → 2023-09-19 | Outpatient (CLI) | payer MEDICARE ==
[~2023-09-19] MED LIST changes: +METH-1164 PO; +NITR100C2; +PROL60SO SC
== END ==
LOC: M WHC 08:49
PROVIDERS: ATTEND Nurse Practitioner Women's Health
DX: C50.811 Malignant neoplasm of overlapping sites of right female breast (principal)
CPT/HCPCS: 77066; G0279

== ENCOUNTER → 2023-10-15 | Outpatient (REF) | payer MEDICARE ==
[2023-10-15 16:34] LABS: BASO % 0.3 % (0.0-1.0); EOS # 0.2 10^3/uL (0.0-0.5); EOS % 3.1 % (0.0-3.0); HEMOGLOBIN 14.4 g/dl (12.0-15.5); LYMPH # 1.2 10^3/uL (1.5-5.0); LYMPH % 15.5 % (24.0-44.0); MEAN CORPUSCULAR HEMOGLOBIN 32.6 pg (27.0-33.0); MEAN CORPUSCULAR HGB CONC 34.3 g/dl (32.0-36.5); MONO # 0.5 10^3/uL (0.0-0.8); MONO % 6.7 % (2.0-8.0); NEUTROPHILS # 5.5 10^3/uL (1.5-8.5); NEUTROPHILS % 74.1 % (36.0-66.0); PLATELET COUNT, AUTOMATED 222 10^3/uL (150-450); RED BLOOD COUNT 4.42 10^6/uL (4.00-5.40); WHITE BLOOD COUNT 7.5 10^3/uL (4.0-10.0)
[2023-10-15 17:00] LABS: ALBUMIN 3.5 G/DL (3.2-5.2); ALKALINE PHOSPHATASE 82 U/L (46-116); ALT/SGPT 27 U/L (7.0-40); AST/SGOT 19 U/L (<34); BILIRUBIN,TOTAL 0.3 MG/DL (0.3-1.2); BLOOD UREA NITROGEN 10 MG/DL (9-23); CALCIUM LEVEL 9.5 MG/DL (8.3-10.6); CARBON DIOXIDE LEVEL 31 MMOL/L (20-31); CHLORIDE LEVEL 106 MMOL/L (98-107); CREATININE FOR GFR 0.83 MG/DL (0.55-1.30); GLOMERULAR FILTRATION RATE > 60.0 (>45); GLUCOSE, FASTING 96 MG/DL (74-106); SODIUM LEVEL 140 MMOL/L (136-145)
== END ==
LOC: M SFHCADAM 13:58
PROVIDERS: ATTEND Family Medicine
DX: Z01.818 Encounter for other preprocedural examination (principal)

== ENCOUNTER 2023-10-24 06:03 | Day surgery (SDC) | payer MEDICARE ==
[~2023-10-24] VITALS: Ht 175.3 cm; Wt 110.2 kg
[~2023-10-24 06:03] MED LIST changes: +THERTAB52 PO
[2023-10-24] MEDS ORDERED: LR 1,000 ML IV SCH ×2 (06:35→09:50)
[2023-10-24] MEDS ORDERED: LIDOCAINE 2% 100MG/5ML SDV (FOR ANES.) As Ordered ONE (07:22)
[2023-10-24] MEDS ORDERED: fentaNYL 250 MCG/5 ML INJECTION As Ordered ONE (07:22)
[2023-10-24] MEDS ORDERED: propofoL 200 MG/20 ML VIAL As Ordered ONE (07:22)
[2023-10-24] MEDS ORDERED: ONDANSETRON 4MG 2ML VIAL As Ordered ONE (07:22)
[2023-10-24] MEDS ORDERED: MIDAZOLAM INJ 2MG/2ML VIAL As Ordered ONE (07:26)
[2023-10-24] MEDS ORDERED: dexmedeTOMIDine (4MCG/ML)200MCG/50ML BTL (PRECEDEX) As Ordered ONE (07:28)
[2023-10-24] MEDS ORDERED: ROCURONIUM BROMIDE 50MG/5ML VIAL As Ordered ONE (07:48)
[2023-10-24] MEDS: ceFAZolin SOD 2 GM in IV 1 EA IV ONE (07:59)
[2023-10-24] MEDS ORDERED: ACETAMINOPHEN 1000MG 100ML IV BAG As Ordered ONE (08:21)
[2023-10-24] MEDS ORDERED: LACRILUBE (AKWA TEARS) OPHTH OINT 3.5GM As Ordered ONE (08:21)
[2023-10-24] MEDS ORDERED: SUGAMMADEX SODIUM 500 MG/5 ML VIAL (BRIDION) As Ordered ONE (08:21)
[2023-10-24] MEDS ORDERED: HEPARIN SOD (PORCINE) 5000UNITS/ML 1ML VIAL/SYRINGE As Ordered ONE (08:22)
[2023-10-24] MEDS: GENTAMICIN SULF 80MG/2ML VIAL As Ordered ONE (08:30)
[2023-10-24] MEDS ORDERED: HYDROmorphone HCL 2MG/ML 1ML VIAL As Ordered ONE (08:52)
[2023-10-24] MEDS ORDERED: ONDANSETRON 4MG 2ML VIAL IV PRN (09:50)
[2023-10-24] MEDS ORDERED: fentaNYL 100 MCG/2 ML INJECTION IV PRN (09:50)
[2023-10-24] MEDS ORDERED: HYDROMORPHONE HCL 0.5 MG/ 0.5 ML SYRINGE IV PRN (09:50)
[2023-10-24] MEDS ORDERED: NALOXONE INJ 0.4MG/1ML VIAL As Ordered ONE (10:22)
[2023-10-24] MEDS ORDERED: OXYC1TAB23 PO ×2 (10:42→10:46)
[2023-10-24] MEDS: oxyCODONE 5MG TAB PO PRN (10:56)
[2023-10-24 12:26] VITALS: BP 156/92; TEMP 97.7; O2SAT 96
== END 2023-10-24 12:30 | disposition home or self-care (01) ==
LOC: M SDC 06:03
PROVIDERS: ATTEND Plastic Surgery Surgery of the Hand
DX: N64.89 Other specified disorders of breast (principal); Z85.3 Personal history of malignant neoplasm of breast; Z92.21 Personal history of antineoplastic chemotherapy; Z92.3 Personal history of irradiation; N65.1 Disproportion of reconstructed breast; N62 Hypertrophy of breast; I10 Essential (primary) hypertension; E78.5 Hyperlipidemia, unspecified; E03.9 Hypothyroidism, unspecified; F41.9 Anxiety disorder, unspecified; F32.A Depression, unspecified; G43.909 Migraine, unspecified, not intractable, without status migrainosus; Z79.899 Other long term (current) drug therapy; J45.909 Unspecified asthma, uncomplicated; Z91.040 Latex allergy status; Z88.8 Allergy status to other drugs, medicaments and biological substances
CPT/HCPCS: 19318; 88305; C9290; J0131; J0665; J0690; J1100; J1170; J1580; J2250; J2310; J2405; J3010

== ENCOUNTER → 2023-11-27 | Outpatient (CLI) | payer MEDICARE ==
[~2023-11-27] MED LIST changes: +CALC1TAB26 PO
[2023-11-27 12:06] LABS: BASO % 0.3 % (0.0-1.0); EOS # 0.2 10^3/uL (0.0-0.5); EOS % 3.4 % (0.0-3.0); HEMATOCRIT 40.4 % (36.0-47.0); HEMOGLOBIN 13.9 g/dl (12.0-15.5); MEAN CORPUSCULAR HEMOGLOBIN 33.2 pg (27.0-33.0); MEAN CORPUSCULAR HGB CONC 34.4 g/dl (32.0-36.5); MEAN CORPUSCULAR VOLUME 96.4 fl (80.0-96.0); MONO # 0.5 10^3/uL (0.0-0.8); MONO % 8.2 % (2.0-8.0); NEUTROPHILS # 4.2 10^3/uL (1.5-8.5); NEUTROPHILS % 70.9 % (36.0-66.0); PLATELET COUNT, AUTOMATED 212 10^3/uL (150-450); RED BLOOD COUNT 4.19 10^6/uL (4.00-5.40); WHITE BLOOD COUNT 5.9 10^3/uL (4.0-10.0)
[2023-11-27 12:31] LABS: ALBUMIN 3.6 G/DL (3.2-5.2); ALKALINE PHOSPHATASE 72 U/L (46-116); ALT/SGPT 28 U/L (7.0-40); AST/SGOT 19 U/L (<34); BILIRUBIN,TOTAL 0.4 MG/DL (0.3-1.2); BLOOD UREA NITROGEN 10 MG/DL (9-23); CALCIUM LEVEL 8.4 MG/DL (8.3-10.6); CARBON DIOXIDE LEVEL 30 MMOL/L (20-31); CHLORIDE LEVEL 104 MMOL/L (98-107); GLOMERULAR FILTRATION RATE > 60.0 (>45); GLUCOSE, FASTING 90 MG/DL (74-106); POTASSIUM SERUM 3.6 MMOL/L (3.5-5.1); SODIUM LEVEL 140 MMOL/L (136-145)
[2023-11-27 12:32] LABS: THYROID STIMULATING HORMONE 2.453 uIU/ML (0.55-4.78)
== END ==
LOC: M WUC 09:02
PROVIDERS: ATTEND Family Medicine
DX: Z01.818 Encounter for other preprocedural examination (principal); Z79.890 Hormone replacement therapy; Z79.899 Other long term (current) drug therapy

== ENCOUNTER 2023-12-12 12:37 | Day surgery (SDC) | payer MEDICARE ==
[~2023-12-12] VITALS: Ht 172.7 cm; Wt 108.6 kg
[~2023-12-12 12:37] MED LIST changes: +INDOCYANINE GREEN 25MG VIAL (IC-GREEN) IV ONE
[2023-12-12] MEDS ORDERED: LR 1,000 ML IV SCH (13:50)
[2023-12-12] MEDS ORDERED: propofoL 200 MG/20 ML VIAL As Ordered ONE (14:58)
[2023-12-12] MEDS ORDERED: MIDAZOLAM INJ 2MG/2ML VIAL As Ordered ONE (14:58)
[2023-12-12] MEDS ORDERED: LIDOCAINE 2% 100MG/5ML SDV (FOR ANES.) As Ordered ONE (14:58)
[2023-12-12] MEDS ORDERED: fentaNYL 100 MCG/2 ML INJECTION As Ordered ONE (14:58)
[2023-12-12] MEDS ORDERED: ROCURONIUM BROMIDE 50MG/5ML VIAL As Ordered ONE (14:58)
[2023-12-12] MEDS ORDERED: INDOCYANINE GREEN 25MG VIAL (IC-GREEN) As Ordered ONE (16:12)
[2023-12-12] MEDS: HEPARIN SOD (PORCINE) 5000UNITS/ML 1ML VIAL/SYRINGE SQ ONE (17:00)
[2023-12-12] MEDS: ceFAZolin SOD 2 GM in IV 1 EA IV ONE (17:00)
[2023-12-12] MEDS ORDERED: ACETAMINOPHEN 1000MG 100ML IV BAG As Ordered ONE (17:10)
[2023-12-12] MEDS ORDERED: KETOROLAC 60MG 2ML VIAL As Ordered ONE (17:21)
[2023-12-12] MEDS ORDERED: ONDANSETRON 4MG 2ML VIAL As Ordered ONE (17:22)
[2023-12-12] MEDS ORDERED: HYDROmorphone HCL 2MG/ML 1ML VIAL As Ordered ONE (17:22)
[2023-12-12] MEDS ORDERED: SUGAMMADEX SODIUM 500 MG/5 ML VIAL (BRIDION) As Ordered ONE (17:22)
[2023-12-12] MEDS ORDERED: ePHEDrine SULFATE 25 MG/5 ML(5MG/ML) SYRINGE As Ordered ONE (17:32)
[2023-12-12] MEDS ORDERED: PHENYLephrine 500MCG 5ML (100MCG/ML) SYRINGE As Ordered ONE (17:34)
[2023-12-12] MEDS ORDERED: GLYCOPYRROLATE INJ 0.2 MG/ML 2 ML VIAL As Ordered ONE (17:40)
[2023-12-12] MEDS ORDERED: fentaNYL 100 MCG/2 ML INJECTION IV PRN (18:25)
[2023-12-12] MEDS ORDERED: HYDROMORPHONE HCL 0.5 MG/ 0.5 ML SYRINGE IV PRN (18:25)
[2023-12-12] MEDS ORDERED: oxyCODONE 5MG TAB PO PRN (18:25)
[2023-12-12] MEDS: ONDANSETRON 4MG 2ML VIAL IV PRN (20:01)
[2023-12-12 20:55] VITALS: BP 142/80; TEMP 96.8; O2SAT 95
[2023-12-13] MEDS ORDERED: HYDR-3713 PO (17:47)
[2023-12-13] MEDS ORDERED: CLOB0.0548 (17:47)
== END 2023-12-12 22:10 | disposition home or self-care (01) ==
LOC: M SDC 12:37
PROVIDERS: ATTEND Surgery
DX: K80.10 Calculus of gallbladder with chronic cholecystitis without obstruction (principal); I10 Essential (primary) hypertension; E78.5 Hyperlipidemia, unspecified; E03.9 Hypothyroidism, unspecified; Z92.21 Personal history of antineoplastic chemotherapy; Z92.3 Personal history of irradiation; Z85.3 Personal history of malignant neoplasm of breast; K21.9 Gastro-esophageal reflux disease without esophagitis; Z79.899 Other long term (current) drug therapy; J45.909 Unspecified asthma, uncomplicated; F41.9 Anxiety disorder, unspecified; F32.A Depression, unspecified; Z88.8 Allergy status to other drugs, medicaments and biological substances; Z91.040 Latex allergy status; Z87.891 Personal history of nicotine dependence
CPT/HCPCS: 47562; 88304; J0131; J0665; J0690; J1100; J1170; J1885; J2250; J2371; J2405; J3010; S2900

== ENCOUNTER 2023-12-13 14:17 | Observation (INO) | payer MEDICARE ==
[~2023-12-13] VITALS: Ht 172.7 cm; Wt 108.6 kg
[~2023-12-13 14:17] MED LIST changes: -INDOCYANINE GREEN 25MG VIAL (IC-GREEN) IV ONE
[2023-12-13] MEDS ORDERED: ISOVUE-370 76% 100ML VIAL As Ordered ONE (15:19)
[2023-12-13 15:28] LABS: LIPASE 30 U/L (12-53)
[2023-12-13 15:34] LABS: INR 1.15; PARTIAL THROMBOPLASTIN TIME 25.2 SECONDS (24.8-34.2); PROTHROMBIN TIME 14.4 SECONDS (12.5-14.5)
[2023-12-13 15:35] LABS: ALBUMIN 3.6 G/DL (3.2-5.2); ALKALINE PHOSPHATASE 68 U/L (46-116); ALT/SGPT 46 U/L (7.0-40); AMYLASE 57 U/L (30-118); AST/SGOT 44 U/L (<34); BILIRUBIN,DIRECT 0.2 MG/DL (<0.4); BILIRUBIN,TOTAL 0.7 MG/DL (0.3-1.2); BLOOD UREA NITROGEN 11 MG/DL (9-23); CALCIUM LEVEL 8.4 MG/DL (8.3-10.6); CARBON DIOXIDE LEVEL 26 MMOL/L (20-31); CHLORIDE LEVEL 100 MMOL/L (98-107); CREATININE FOR GFR 0.75 MG/DL (0.55-1.30); GLOMERULAR FILTRATION RATE > 60.0 (>45); GLUCOSE, FASTING 110 MG/DL (74-106); POTASSIUM SERUM 3.5 MMOL/L (3.5-5.1); SODIUM LEVEL 134 MMOL/L (136-145); TOTAL PROTEIN 6.9 G/DL (5.7-8.2)
[2023-12-13 15:37] LABS: HCG, SERUM QUALITATIVE NEGATIVE (NEGATIVE)
[2023-12-13 15:43] LABS: PROCALCITONIN 0.05 ng/ml
[2023-12-13 15:48] LABS: BASO % 0.1 % (0.0-1.0); EOS % 0.3 % (0.0-3.0); HEMATOCRIT 39.4 % (36.0-47.0); HEMOGLOBIN 13.8 g/dl (12.0-15.5); LYMPH # 0.8 10^3/uL (1.5-5.0); LYMPH % 6.3 % (24.0-44.0); MEAN CORPUSCULAR VOLUME 94.3 fl (80.0-96.0); MONO # 0.9 10^3/uL (0.0-0.8); MONO % 6.9 % (2.0-8.0); NEUTROPHILS # 10.9 10^3/uL (1.5-8.5); NEUTROPHILS % 86.1 % (36.0-66.0); PLATELET COUNT, AUTOMATED 199 10^3/uL (150-450); RED BLOOD COUNT 4.18 10^6/uL (4.00-5.40); WHITE BLOOD COUNT 12.6 10^3/uL (4.0-10.0)
[2023-12-13 15:58] LABS: ABG BASE EXCESS 0.2 (-2.0-2.0); ABG HCO3 22.7 MMOL/L (22.0-26.0); ABG O2 SATURATION 95.8 % (95.0-99.0); ABG PARTIAL PRESSURE CO2 30.6 mmHg (35.0-45.0); ABG PARTIAL PRESSURE O2 72.5 mmHg (75.0-100.0); ABG STANDARD HCO3 24.6 MMOL/L. (22.0-26.0); ABG TOTAL CO2 23.6 MMOL/L (23.0-31.0); ABG pH (ARTERIAL) 7.488 UNITS (7.350-7.450)
[2023-12-13] MEDS: NS IV ONE (16:11)
[2023-12-13] MEDS: ACETAMINOPHEN TAB 650MG DOSE (2X325MG) PO ONE (16:31)
[2023-12-13] MEDS: MORPHINE 2 MG/ML 1ML VIAL IV PRN (16:32)
[2023-12-13] MEDS: ONDANSETRON 4MG 2ML VIAL IV STA (16:32)
[2023-12-13] MEDS: PIPERACILLIN/TAZOBACTAM SOD 4.5 GM in D5W MINI-BAG PLUS 50 ML IV ONE (16:32)
[2023-12-13 16:36] LABS: APPEARANCE, URINE CLEAR (CLEAR); BACTERIA, URINE AUTO NEGATIVE (NEGATIVE); BILIRUBIN, URINE AUTO NEGATIVE (NEGATIVE); BLOOD, URINE BLOOD NEGATIVE (NEGATIVE); COLOR, URINE YELLOW (YELLOW); GLUCOSE, URINE (UA) AUTO NEGATIVE (NEGATIVE); KETONE, URINE AUTO NEGATIVE (NEGATIVE); LEUKOCYTE ESTERASE, URINE AUTO NEGATIVE (NEGATIVE); NITRITE, URINE AUTO NEGATIVE (NEGATIVE); PROTEIN, URINE AUTO NEGATIVE (NEGATIVE); RBC, URINE AUTO 3 /HPF (0-3); SPECIFIC GRAVITY URINE AUTO 1.023 (1.002-1.035); SQUAMOUS EPITHELIAL CELL UR AU 0 /HPF (0-6); UROBILINOGEN, URINE AUTO 0.2 mg/dL (0.0-2.0); WBC, URINE AUTO 2 /HPF (0-3)
[2023-12-13] MEDS ORDERED: HYDR-3713 PO (17:47)
[2023-12-13] MEDS ORDERED: CLOB0.0548 (17:47)
[2023-12-13] MEDS ORDERED: HOME MED LIST COMPLETE! XX SCH (17:50)
[2023-12-13] MEDS ORDERED: ONDANSETRON 4MG 2ML VIAL IV PRN (18:55)
[2023-12-13] MEDS: TOLTERODINE (DETROL) 2 MG TAB PO SCH (21:00)
[2023-12-13] MEDS: LR 1,000 ML IV SCH (21:45)
[2023-12-13] MEDS: SIMVASTATIN 20 MG TAB PO SCH (21:45)
[2023-12-13] MEDS: FAMOTIDINE 20 MG TAB PO SCH (21:45)
[2023-12-13] MEDS: MORPHINE 4 MG/ML 1ML VIAL IV PRN (21:47)
[2023-12-13 22:10] VITALS: BP 133/73; TEMP 97.5; O2SAT 95
[2023-12-14] MEDS: NORCO, ANEXSIA 5/325MG TABLET (HYDROcodone/ACETAMINOPHEN) PO PRN (03:19)
[2023-12-14 05:28] VITALS: BP 115/61; TEMP 97.3; O2SAT 91
[2023-12-14 06:20] LABS: BASO % 0.3 % (0.0-1.0); EOS # 0.2 10^3/uL (0.0-0.5); EOS % 1.9 % (0.0-3.0); HEMATOCRIT 35.5 % (36.0-47.0); HEMOGLOBIN 12.4 g/dl (12.0-15.5); LYMPH # 0.9 10^3/uL (1.5-5.0); MEAN CORPUSCULAR HEMOGLOBIN 33.2 pg (27.0-33.0); MEAN CORPUSCULAR HGB CONC 34.9 g/dl (32.0-36.5); MEAN CORPUSCULAR VOLUME 95.2 fl (80.0-96.0); MONO # 0.8 10^3/uL (0.0-0.8); MONO % 9.6 % (2.0-8.0); NEUTROPHILS % 76.9 % (36.0-66.0); PLATELET COUNT, AUTOMATED 151 10^3/uL (150-450); RED BLOOD COUNT 3.73 10^6/uL (4.00-5.40); WHITE BLOOD COUNT 7.8 10^3/uL (4.0-10.0)
[2023-12-14] MEDS: LEVOTHYROXINE 112MCG TABLET (0.112MG) PO SCH (06:21)
[2023-12-14 06:40] LABS: ALBUMIN 2.9 G/DL (3.2-5.2); ALKALINE PHOSPHATASE 57 U/L (46-116); ALT/SGPT 37 U/L (7.0-40); AST/SGOT 30 U/L (<34); BILIRUBIN,TOTAL 0.6 MG/DL (0.3-1.2); BLOOD UREA NITROGEN 8 MG/DL (9-23); CALCIUM LEVEL 8.1 MG/DL (8.3-10.6); CARBON DIOXIDE LEVEL 25 MMOL/L (20-31); CHLORIDE LEVEL 108 MMOL/L (98-107); CREATININE FOR GFR 0.74 MG/DL (0.55-1.30); GLOMERULAR FILTRATION RATE > 60.0 (>45); GLUCOSE, FASTING 118 MG/DL (74-106); POTASSIUM SERUM 3.6 MMOL/L (3.5-5.1); SODIUM LEVEL 140 MMOL/L (136-145); TOTAL PROTEIN 5.8 G/DL (5.7-8.2)
[2023-12-14] MEDS: LOSARTAN 50MG TABLET PO SCH (08:45)
[2023-12-14] MEDS: PANTOPRAZOLE 40MG VIAL IV SCH (08:45)
[2023-12-14] MEDS: MOM 30ML SUSPENSION UDC PO ONE (11:59)
[2023-12-14] MEDS: CEPHALEXIN 500 MG CAP PO SCH (12:00)
[2023-12-14 14:00] VITALS: BP 127/81; TEMP 97.3; O2SAT 90
[2023-12-14 22:00] VITALS: BP 121/47; TEMP 97.7; O2SAT 91
[2023-12-14 23:30] VITALS: O2SAT 83
[2023-12-14 23:35] VITALS: O2SAT 91
[2023-12-15 05:14] VITALS: BP 122/73; TEMP 97.2; O2SAT 93
[2023-12-15] MEDS: NORCO, ANEXSIA 5/325MG TABLET (HYDROcodone/ACETAMINOPHEN) PO PRN (06:06)
[2023-12-15 07:57] LABS: RED BLOOD COUNT 3.84 10^6/uL (4.00-5.40); WHITE BLOOD COUNT 6.5 10^3/uL (4.0-10.0)
[2023-12-15 07:58] LABS: BASO % 0.3 % (0.0-1.0); EOS # 0.2 10^3/uL (0.0-0.5); EOS % 3.5 % (0.0-3.0); HEMATOCRIT 36.9 % (36.0-47.0); HEMOGLOBIN 12.9 g/dl (12.0-15.5); LYMPH # 0.8 10^3/uL (1.5-5.0); LYMPH % 11.8 % (24.0-44.0); MEAN CORPUSCULAR HEMOGLOBIN 33.6 pg (27.0-33.0); MEAN CORPUSCULAR VOLUME 96.1 fl (80.0-96.0); MONO # 0.4 10^3/uL (0.0-0.8); MONO % 6.7 % (2.0-8.0); NEUTROPHILS # 5.1 10^3/uL (1.5-8.5); NEUTROPHILS % 77.4 % (36.0-66.0); PLATELET COUNT, AUTOMATED 169 10^3/uL (150-450)
[2023-12-15 08:23] LABS: ALBUMIN 2.8 G/DL (3.2-5.2); ALKALINE PHOSPHATASE 59 U/L (46-116); ALT/SGPT 29 U/L (7.0-40); AST/SGOT 21 U/L (<34); BILIRUBIN,TOTAL 0.5 MG/DL (0.3-1.2); BLOOD UREA NITROGEN 8 MG/DL (9-23); CALCIUM LEVEL 8.2 MG/DL (8.3-10.6); CARBON DIOXIDE LEVEL 29 MMOL/L (20-31); CHLORIDE LEVEL 106 MMOL/L (98-107); CREATININE FOR GFR 0.75 MG/DL (0.55-1.30); GLOMERULAR FILTRATION RATE > 60.0 (>45); GLUCOSE, FASTING 103 MG/DL (74-106); POTASSIUM SERUM 3.5 MMOL/L (3.5-5.1); SODIUM LEVEL 141 MMOL/L (136-145)
[2023-12-15 09:32] VITALS: BP 127/76
[2023-12-15] MEDS ORDERED: DOXY50CA51 PO (10:45)
[2023-12-15] MEDS ORDERED: CEPH500C PO (10:45)
[2023-12-15] MEDS ORDERED: DOXY-444 PO (11:44)
== END 2023-12-15 12:06 | disposition home or self-care (01) ==
LOC: M ED 15:53 → M ED INP 15:54 → M MSPAV 22:07
PROVIDERS: ADMIT Surgery; ATTEND Surgery
DX: G89.18 Other acute postprocedural pain (principal); R50.9 Fever, unspecified; S21.001A Unspecified open wound of right breast, initial encounter; J18.9 Pneumonia, unspecified organism; Z79.899 Other long term (current) drug therapy; Z79.2 Long term (current) use of antibiotics; Z88.8 Allergy status to other drugs, medicaments and biological substances; Z91.040 Latex allergy status
CPT/HCPCS: 36415; 36600; 51701; 71045; 71046; 71275; 74177; 80047; 80048; 80053; 80076; 81001; 82150; 82803; 83605; 83690; 84145; 84703; 85025; 85610; 85730; 86140; 86850; 86900; 86901; 87040; 87086; 87486; 87581; 87633; 87798; 93005; 93041; 94760; 96361; 96365; 96375; 96376; 99285; C9113; G0378; J2405; J2543; Q9967

== ENCOUNTER → 2024-03-09 | Outpatient (CLI) | payer MEDICARE ==
[~2024-03-09] MED LIST changes: +ALEN70TA82 PO; +CLOB0.0548; +DOXY-440 PO; +DOXY50CA35 PO; +HYDR-3713 PO
[2024-03-09 18:12] LABS: BASO % 0.5 % (0.0-1.0); EOS # 0.3 10^3/uL (0.0-0.5); EOS % 3.5 % (0.0-3.0); HEMATOCRIT 45.5 % (36.0-47.0); HEMOGLOBIN 15.1 g/dl (12.0-15.5); LYMPH # 1.1 10^3/uL (1.5-5.0); LYMPH % 13.6 % (24.0-44.0); MEAN CORPUSCULAR HEMOGLOBIN 32.8 pg (27.0-33.0); MEAN CORPUSCULAR HGB CONC 33.2 g/dl (32.0-36.5); MEAN CORPUSCULAR VOLUME 98.9 fl (80.0-96.0); MONO # 0.5 10^3/uL (0.0-0.8); MONO % 5.7 % (2.0-8.0); NEUTROPHILS # 6.3 10^3/uL (1.5-8.5); NEUTROPHILS % 76.5 % (36.0-66.0); PLATELET COUNT, AUTOMATED 222 10^3/uL (150-450); WHITE BLOOD COUNT 8.2 10^3/uL (4.0-10.0)
[2024-03-09 18:37] LABS: ALBUMIN 3.9 G/DL (3.2-5.2); ALKALINE PHOSPHATASE 74 U/L (46-116); ALT/SGPT 39 U/L (7.0-40); AST/SGOT 22 U/L (<34); BILIRUBIN,TOTAL 0.5 MG/DL (0.3-1.2); BLOOD UREA NITROGEN 10 MG/DL (9-23); CALCIUM LEVEL 9.4 MG/DL (8.3-10.6); CARBON DIOXIDE LEVEL 29 MMOL/L (20-31); CHLORIDE LEVEL 104 MMOL/L (98-107); CHOLESTEROL LEVEL 160 MG/DL (<200); CHOLESTEROL RISK RATIO 2.78 (<5); CREATININE FOR GFR 0.85 MG/DL (0.55-1.30); GLOMERULAR FILTRATION RATE > 60.0 (>45); GLUCOSE, FASTING 113 MG/DL (74-106); HDL CHOLESTEROL 57.4 MG/DL (>40); LDL CHOLESTEROL 81.8 MG/DL (<100); NON-HDL-C 102.6 MG/DL; SODIUM LEVEL 136 MMOL/L (136-145); TOTAL PROTEIN 7.2 G/DL (5.7-8.2); TRIGLYCERIDES LEVEL 104 MG/DL (<150)
[2024-03-09 18:39] LABS: THYROID STIMULATING HORMONE 0.846 uIU/ML (0.55-4.78)
== END ==
LOC: M WUC 10:29
PROVIDERS: ATTEND Family Medicine
DX: Z00.00 Encounter for general adult medical examination without abnormal findings (principal); E78.00 Pure hypercholesterolemia, unspecified

== ENCOUNTER → 2024-04-27 | Outpatient (CLI) | payer MEDICARE ==
[2024-04-27 11:18] LABS: HEMOGLOBIN A1c 5.2 % (4.0-6.0)
== END ==
LOC: M WUC 08:04
PROVIDERS: ATTEND Family Medicine
DX: R73.9 Hyperglycemia, unspecified (principal)

== ENCOUNTER → 2024-06-12 | Outpatient (REF) | payer MEDICARE, OTHER ==
[2024-06-16 14:07] LABS: HPV APTIMA Not Detected (Not Detected)
== END ==
LOC: M SFHCWAGY 12:48
PROVIDERS: ATTEND Obstetrics & Gynecology
DX: Z12.4 Encounter for screening for malignant neoplasm of cervix (principal); N95.2 Postmenopausal atrophic vaginitis
CPT/HCPCS: 87624; G0123

== ENCOUNTER → 2024-07-15 | Outpatient (CLI) | payer MEDICARE ==
[~2024-07-15] MED LIST changes: -DOXY50CA35 PO; +DOXY50CA50 PO; +DULO1CAP6 PO
== END ==
LOC: M ONCR 14:12
PROVIDERS: ATTEND General Practice
DX: Z08 Encounter for follow-up examination after completed treatment for malignant neoplasm (principal); Z85.3 Personal history of malignant neoplasm of breast; G57.93 Unspecified mononeuropathy of bilateral lower limbs; F32.A Depression, unspecified; Z92.21 Personal history of antineoplastic chemotherapy; Z92.3 Personal history of irradiation; Z79.811 Long term (current) use of aromatase inhibitors; Z79.899 Other long term (current) drug therapy; Z88.6 Allergy status to analgesic agent; Z88.8 Allergy status to other drugs, medicaments and biological substances; Z91.040 Latex allergy status; Z98.890 Other specified postprocedural states

== ENCOUNTER → 2024-07-21 | Outpatient (CLI) | payer MEDICARE, OTHER ==
[~2024-07-21] MED LIST changes: +ALEN70TA87 PO; +CYMB60CA4 PO
== END ==
LOC: M WUC 11:22 → M ADAMS 11:22
PROVIDERS: ATTEND Family Medicine
DX: M25.641 Stiffness of right hand, not elsewhere classified (principal)

== ENCOUNTER 2024-08-20 09:47 | Day surgery (SDC) | payer MEDICARE ==
[~2024-08-20] VITALS: Ht 177.8 cm; Wt 108.9 kg
[2024-08-20] MEDS ORDERED: fentaNYL 100 MCG/2 ML INJECTION As Ordered ONE (12:01)
[2024-08-20] MEDS ORDERED: LIDOCAINE 2% 100MG/5ML SDV (FOR ANES.) As Ordered ONE (12:06)
[2024-08-20] MEDS ORDERED: propofoL 200 MG/20 ML VIAL As Ordered ONE (12:06)
[2024-08-20 12:24] VITALS: TEMP 97.2
[2024-08-20 12:42] VITALS: BP 139/73; O2SAT 95
== END 2024-08-20 12:44 | disposition home or self-care (01) ==
LOC: M OPP 09:47
PROVIDERS: ATTEND Internal Medicine Gastroenterology
DX: K29.50 Unspecified chronic gastritis without bleeding (principal); K29.80 Duodenitis without bleeding; K31.89 Other diseases of stomach and duodenum; R12 Heartburn; R10.13 Epigastric pain; I10 Essential (primary) hypertension; E03.9 Hypothyroidism, unspecified; E78.00 Pure hypercholesterolemia, unspecified; K76.0 Fatty (change of) liver, not elsewhere classified; Z79.899 Other long term (current) drug therapy; G43.909 Migraine, unspecified, not intractable, without status migrainosus; Z79.890 Hormone replacement therapy; Z88.8 Allergy status to other drugs, medicaments and biological substances; Z91.040 Latex allergy status; Z88.6 Allergy status to analgesic agent; Z87.891 Personal history of nicotine dependence
CPT/HCPCS: 43239; 88305; J3010

== ENCOUNTER → 2024-09-22 | Outpatient (CLI) | payer MEDICARE ==
[~2024-09-22] MED LIST changes: +[UNRECOGNIZED DRUG - CODE] IV
== END ==
LOC: M WHC 10:33
PROVIDERS: ATTEND Family Medicine
DX: Z12.31 Encounter for screening mammogram for malignant neoplasm of breast (principal); Z85.3 Personal history of malignant neoplasm of breast
CPT/HCPCS: 77066; G0279

== ENCOUNTER → 2024-11-26 | Outpatient (CLI) | payer MEDICARE, MEDICAID ==
[~2024-11-26] MED LIST changes: +AMIT150T; +DENO60SY2 SC; +ISOVUE-370 76% 100ML VIAL ONE; +LINZ145C; +OMEP40CA5; -PROL60SO SC
== END ==
LOC: M PLAIMG 13:54
DX: C50.919 Malignant neoplasm of unspecified site of unspecified female breast (principal)
CPT/HCPCS: 71260; Q9967

== ENCOUNTER → 2025-01-05 | Outpatient (CLI) | payer MEDICARE, MEDICAID ==
[~2025-01-05] MED LIST changes: -ISOVUE-370 76% 100ML VIAL ONE
== END ==
LOC: M WHC 13:04
DX: M81.0 Age-related osteoporosis without current pathological fracture (principal)

== ENCOUNTER → 2025-04-19 | Outpatient (CLI) | payer MEDICARE, MEDICAID ==
[~2025-04-19] MED LIST changes: +ALPR0.25 PO; -AMIT150T; +AMIT150T4; +SENN-225 PO; -SENO8.6T5 PO
[2025-04-19 12:50] LABS: RHEUMATOID FACTOR QUANT < 3.5 IU/ML (<14); VITAMIN B12 LEVEL 478 PG/ML (211-911)
[2025-04-19 13:03] LABS: ESTIMATED AVERAGE GLUCOSE 117.0 MG/DL (60-110)
[2025-04-20 08:25] LABS: T P ELECTROPHORESIS SO 7.5 g/dL (6.1-8.1)
[2025-04-22 11:12] LABS: ALBUMIN SPEP 4.2 g/dL (3.8-4.8); ALPHA-1-GLOBULINS SO 0.3 g/dL (0.2-0.3); ALPHA-2-GLOBULINS SO 0.9 g/dL (0.5-0.9); BETA 2 GLOBULIN 0.5 g/dL (0.2-0.5); BETA-GLOBULIN SO 0.4 g/dL (0.4-0.6); GAMMA GLOBULINS SO 1.2 g/dL (0.8-1.7)
[2025-04-22 18:07] LABS: VITAMIN E(ALPHA TOCOPHEROL) 14.9 mg/L (5.7-19.9); VITAMIN E(GAMMA TOCOPHEROL) < 1.0 mg/L (<=4.3)
== END ==
LOC: M WUC 10:15
PROVIDERS: ATTEND Psychiatry & Neurology Neurology
DX: E11.9 Type 2 diabetes mellitus without complications (principal); R20.2 Paresthesia of skin; E53.8 Deficiency of other specified B group vitamins

== ENCOUNTER → 2025-05-31 | Outpatient (CLI) | payer MEDICARE | LOC: M PLAIMG 14:39 | PROVIDERS: ATTEND Family Medicine | DX: I51.89 Other ill-defined heart diseases (principal) ==

== ENCOUNTER → 2025-07-07 | Outpatient (CLI) | payer MEDICARE, MEDICAID | LOC: M ADAMS 14:13 | PROVIDERS: ATTEND Family Medicine | DX: R06.02 Shortness of breath (principal) ==

== ENCOUNTER → 2025-07-07 | Outpatient (REF) | payer MEDICARE, MEDICAID ==
[2025-07-07 17:21] LABS: FREE T4 1.08 NG/DL (0.89-1.76)
[2025-07-07 17:22] LABS: ALT/SGPT 36.0 U/L (7.0-40); AST/SGOT 33.0 U/L (<34); BASO # 0.0 10^3/uL (0.0-0.2); BASO % 0.4 % (0.0-1.0); CALCIUM LEVEL 8.9 MG/DL (8.3-10.6); CARBON DIOXIDE LEVEL 27.0 MMOL/L (20-31); CHLORIDE LEVEL 103.0 MMOL/L (98-107); CREATININE FOR GFR 0.88 MG/DL (0.55-1.30); EOS # 0.1 10^3/uL (0.0-0.5); EOS % 2.7 % (0.0-3.0); GLOMERULAR FILTRATION RATE 74.3 (>45); LYMPH # 1.0 10^3/uL (1.5-5.0); LYMPH % 18.6 % (24.0-44.0); MONO # 0.5 10^3/uL (0.0-0.8); MONO % 10.6 % (2.0-8.0); NEUTROPHILS # 3.4 10^3/uL (1.5-8.5); NEUTROPHILS % 67.3 % (36.0-66.0); PLATELET COUNT, AUTOMATED 213 10^3/uL (150-450); POTASSIUM SERUM 3.8 MMOL/L (3.5-5.1); SODIUM LEVEL 143.0 MMOL/L (136-145)
== END ==
LOC: M SFHCADAM 14:07
PROVIDERS: ATTEND Family Medicine
DX: R00.2 Palpitations (principal); R06.02 Shortness of breath

== ENCOUNTER → 2025-07-14 | Outpatient (REF) | payer MEDICARE, MEDICAID ==
[2025-07-14 14:07] LABS: APPEARANCE, URINE CLOUDY (CLEAR); BACTERIA, URINE AUTO 1+ (NEGATIVE); BILIRUBIN, URINE AUTO NEGATIVE (NEGATIVE); BLOOD, URINE BLOOD 1+ (NEGATIVE); GLUCOSE, URINE (UA) AUTO NEGATIVE (NEGATIVE); KETONE, URINE AUTO NEGATIVE (NEGATIVE); LEUKOCYTE ESTERASE, URINE AUTO 3+ (NEGATIVE); MUCUS, URINE SMALL (NEGATIVE); NITRITE, URINE AUTO POSITIVE (NEGATIVE); PROTEIN, URINE AUTO 1+ mg/dL (NEGATIVE); RBC, URINE AUTO 2 /HPF (0-3); SPECIFIC GRAVITY URINE AUTO 1.005 (1.002-1.035); SQUAMOUS EPITHELIAL CELL UR AU 0 /HPF (0-6); TRIPLE PHOSPHATE CRYSTALS SMALL; UROBILINOGEN, URINE AUTO 0.2 mg/dL (0.0-2.0); WBC, URINE AUTO 10 /HPF (0-3)
== END ==
LOC: M LAB REF 13:07
PROVIDERS: ATTEND Family Medicine
DX: Z71.1 Person with feared health complaint in whom no diagnosis is made (principal)

== ENCOUNTER → 2025-07-15 | Outpatient (CLI) | payer MEDICARE | LOC: M ONCR 08:40 | PROVIDERS: ATTEND General Practice | DX: Z08 Encounter for follow-up examination after completed treatment for malignant neoplasm (principal); Z85.3 Personal history of malignant neoplasm of breast; Z98.890 Other specified postprocedural states; Z92.21 Personal history of antineoplastic chemotherapy; Z92.3 Personal history of irradiation; Z79.811 Long term (current) use of aromatase inhibitors; Z79.899 Other long term (current) drug therapy; Z88.6 Allergy status to analgesic agent; Z88.8 Allergy status to other drugs, medicaments and biological substances; Z91.040 Latex allergy status ==

== ENCOUNTER → 2025-07-17 | Outpatient (REF) | payer MEDICARE | LOC: M LAB REF 11:10 | PROVIDERS: ATTEND Family Medicine | DX: R82.90 Unspecified abnormal findings in urine (principal) ==

== ENCOUNTER → 2025-07-22 | Outpatient (REF) | payer MEDICARE | LOC: M SFHCADAM 10:28 | PROVIDERS: ATTEND Family Medicine | DX: R82.90 Unspecified abnormal findings in urine (principal) ==

== ENCOUNTER 2025-09-04 06:13 | Observation (INO) | payer MEDICARE, MEDICAID ==
[2025-09-04] VITALS (7 sets, daily range): BP systolic 111–160; BP diastolic 56–92; TEMP 97.2–98.8; O2SAT 85–95
[~2025-09-04] VITALS: Ht 172.7 cm; Wt 110.7 kg
[2025-09-04] MEDS: LEVOTHYROXINE 112 MCG TABLET (0.112 MG) PO SCH (06:00)
[~2025-09-04 06:13] MED LIST changes: -AMIT150T4; +AMIT150T4 PO; +ATOR40TA75 PO; +BUPR150T12 PO; +ESOM40CA35 PO; +LAMO-18; -LINZ145C; +LINZ145C PO; +POTA-151 PO; +PREG100C2 PO; +PREG50CA3 PO; +PROP20TA72 PO; +SULF-7 PO; -SULF1TAB23 PO
[2025-09-04] MEDS ORDERED: ISOVUE-370 76% 100 ML VIAL As Ordered ONE (06:19)
[2025-09-04 06:42] LABS: BASO # 0.0 10^3/uL (0.0-0.2); BASO % 0.3 % (0.0-1.0); EOS # 0.2 10^3/uL (0.0-0.5); EOS % 2.8 % (0.0-3.0); LYMPH # 1.0 10^3/uL (1.5-5.0); LYMPH % 14.5 % (24.0-44.0); MONO # 0.4 10^3/uL (0.0-0.8); MONO % 5.9 % (2.0-8.0); NEUTROPHILS # 5.2 10^3/uL (1.5-8.5); NEUTROPHILS % 76.2 % (36.0-66.0); PLATELET COUNT, AUTOMATED 225 10^3/uL (150-450)
[2025-09-04 07:13] LABS: CK-MB VALUE MASS 1.8 NG/ML (<3.6)
[2025-09-04] MEDS ORDERED: NEXI40CA PO (07:19)
[2025-09-04] MEDS ORDERED: NITR0.4S14 PO (07:19)
[2025-09-04 07:21] LABS: ALT/SGPT 26.0 U/L (7.0-40); AST/SGOT 26.0 U/L (<34); CALCIUM LEVEL 9.3 MG/DL (8.3-10.6); CARBON DIOXIDE LEVEL 29.0 MMOL/L (20-31); CHLORIDE LEVEL 102.0 MMOL/L (98-107); CREATININE FOR GFR 0.89 MG/DL (0.55-1.30); GLOMERULAR FILTRATION RATE 73.3 (>45); MAGNESIUM LEVEL 1.9 MG/DL (1.8-2.4); POTASSIUM SERUM 4.0 MMOL/L (3.5-5.1); SODIUM LEVEL 141.0 MMOL/L (136-145)
[2025-09-04 07:24] LABS: D-DIMER QUANT 0.63 ug/mL (<0.5); INR 1.01
[2025-09-04 07:27] LABS: CPK CREATINE PHOSPHOKINASE 121.0 U/L (34-145); MB/CK RELATIVE INDEX 1.48 (< OR =4)
[2025-09-04 08:22] LABS: CK-MB VALUE MASS 1.5 NG/ML (<3.6)
[2025-09-04 08:31] LABS: CPK CREATINE PHOSPHOKINASE 115.0 U/L (34-145); MB/CK RELATIVE INDEX 1.3 (< OR =4)
[2025-09-04] MEDS ORDERED: ANAS1TAB2 PO (09:51)
[2025-09-04] MEDS ORDERED: ALEN70TA87 PO (09:51)
[2025-09-04] MEDS ORDERED: HOME MED LIST COMPLETE! XX SCH (09:55)
[2025-09-04] MEDS: PREGABALIN 50 MG CAP PO SCH (13:31)
[2025-09-04] MEDS: LOSARTAN 50 MG TABLET PO SCH (13:31)
[2025-09-04] MEDS: ATORVASTATIN 20 MG TAB PO SCH (13:31)
[2025-09-04] MEDS: buPROPion **XL** 150 MG TABLET PO SCH (13:32)
[2025-09-04] MEDS: PREGABALIN 100 MG CAP PO SCH (13:32)
[2025-09-04] MEDS: CLOPIDOGREL 75 MG TAB PO SCH (13:32)
[2025-09-04] MEDS: ENOXAPARIN 40 MG/0.4 ML SYRINGE (J1650 PER 10MG) SC SCH (13:32)
[2025-09-04] MEDS: PROPRANOLOL 20 MG TAB PO SCH (14:56)
[2025-09-04] MEDS: AMITRIPTYLINE 50MG TAB PO SCH (14:56)
[2025-09-05 03:40] VITALS: BP 134/75; TEMP 98.1; O2SAT 94
[2025-09-05 06:20] VITALS: O2SAT 92
[2025-09-05 06:49] LABS: PLATELET COUNT, AUTOMATED 192 10^3/uL (150-450)
[2025-09-05 07:16] LABS: CALCIUM LEVEL 9.1 MG/DL (8.3-10.6); CARBON DIOXIDE LEVEL 29.0 MMOL/L (20-31); CHLORIDE LEVEL 102.0 MMOL/L (98-107); CREATININE FOR GFR 0.85 MG/DL (0.55-1.30); GLOMERULAR FILTRATION RATE 77.4 (>45); MAGNESIUM LEVEL 1.9 MG/DL (1.8-2.4); POTASSIUM SERUM 4.0 MMOL/L (3.5-5.1); SODIUM LEVEL 140.0 MMOL/L (136-145)
[2025-09-05 07:50] VITALS: BP 137/59; TEMP 97.9; O2SAT 90
[2025-09-05 08:24] VITALS: BP 137/59
== END 2025-09-05 12:18 | disposition home or self-care (01) ==
LOC: M ED 06:13 → EDBD 06:13 → M ED INP 11:02 → M PCU 12:44
PROVIDERS: ADMIT Family Medicine; ATTEND Family Medicine
DX: R41.4 Neurologic neglect syndrome (principal); R20.2 Paresthesia of skin; I10 Essential (primary) hypertension; Z79.899 Other long term (current) drug therapy; M54.50 Low back pain, unspecified; E78.5 Hyperlipidemia, unspecified; F32.A Depression, unspecified; G47.33 Obstructive sleep apnea (adult) (pediatric); Z85.3 Personal history of malignant neoplasm of breast; R73.03 Prediabetes; Z87.891 Personal history of nicotine dependence; Z88.8 Allergy status to other drugs, medicaments and biological substances; Z88.5 Allergy status to narcotic agent; Z91.040 Latex allergy status; R47.81 Slurred speech; R06.02 Shortness of breath
CPT/HCPCS: 36415; 70450; 70496; 70498; 70551; 71045; 80047; 80048; 80076; 82550; 82553; 83735; 83880; 84484; 85025; 85027; 85379; 85610; 85730; 86850; 86900; 86901; 87486; 87581; 87633; 87798; 93005; 93041; 93970; 94760; 96372; 99285; G0378; J1650; Q9967